=== PATIENT | female | born 1945 | race Caucasian/White ===

== ENCOUNTER 2021-10-10 15:33 | Inpatient (IN) ==
--- NOTE | 2021-10-10 16:47 | Emergency Department Note ---
History of Present Illness General Chief complaint: Abnormal Labs/Diagnostic Testing Stated complaint: REF BY , ABNORMAL LAB Time Seen by Provider: 10/10/21 15:40 Source: patient Mode of arrival: ambulatory Limitations: no limitations History of Present Illness This patient is a 76-year-old female who presents to the emergency department accompanied by her son for evaluation of abnormal laboratory findings. Patient reports that she has been very tired and sleeping all the time for the past several weeks. She has had decreased appetite. She states that she feels full and like something is stuck in her abdomen after eating. She denies any abdominal pain or vomiting. She saw her primary care provider today due to these issues and states that she was told she was jaundiced at that time. Her PCP ordered some outpatient testing including a CT scan and blood work. She states that right after having this done, she received a call stating she should go to the ER due to a high white blood cell count. Patient does report a remote history of breast cancer. Home Medications Medication Instructions Recorded Confirmed Type pravastatin 20 mg tablet 20 mg PO DAILY #90 tab 11/14/20 10/10/21 Rx lisinopril 10 mg tablet 10 mg PO DAILY #90 tab 03/20/21 10/10/21 Rx metformin 500 mg tablet 500 mg PO BID #180 tab 04/18/21 10/10/21 Rx metoprolol succinate 50 mg 50 mg PO DAILY #90 tab 06/21/21 10/10/21 Rx tablet,extended release 24 hr hydrochlorothiazide 12.5 mg tablet 12.5 mg PO DAILY #30 tab 07/13/21 10/10/21 Rx naproxen sodium 220 mg tablet 220 mg PO DIRECTED PRN 10/10/21 10/10/21 History Allergies Allergy/AdvReac Type Severity Reaction Status Date / Time No Known Allergies Allergy Verified 10/10/21 18:26 Past Med/Surg History Medical History Breast cancer Breast cancer Gastritis HTN (hypertension) Hyperlipidemia Stomach tumor (benign) Type 2 diabetes mellitus Surgical History Status post breast biopsy Family History Sister Diabetes Social History Smoking Status: Never smoker Second Hand Exposure: Yes (daughter); Hx Alcohol Use: No Hx Substance Use: No Preferred Language: Swiss Communication Ability: Effective Hearing Ability: Normal 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 Beliefs That Will Affect Care: None marital status: Current Living Situation: Family Current Living Situation Comment: son and daughter in law current occupational status: retired How many Children do You have: 6 Other Information That Helps Us Care for You: No Feels Safe at Home: Yes Safety Concerns: Feels Safe At This Time Childhood Exposure to Second-Hand Smoke: Yes caffeine: Yes (coffee) Dental Care, Regularly: No Physical Activity Frequency: Other Physical Activity Frequency Comment: walking throughout daily Seatbelt Use: always Sunscreen Use: Yes Assistive Devices: Denture - Upper and Glasses Review of Systems A total of 10 systems reviewed and were otherwise negative Physical Exam Vital Signs Vital Signs - 24 hr 10/10/21 15:38 Temperature 36.9 C Temperature Source Temporal Artery Scan Pulse Rate 76 Respiratory Rate 16 Blood Pressure 97/63 L Blood Pressure Mean 74 Pulse Oximetry 97 Oxygen Delivery Method Room Air Sepsis Recent Fever Within 48 Hours No Sepsis New/Unexplained Change in Mental Status N/A Sepsis Action Taken by Nursing No Action Required VITALS: Vitals are noted on the nurse's note and reviewed by myself. GENERAL: This is a 76-year-old female, in no acute distress, sitting in a wheelchair. SKIN: Jaundice noted. No rashes. EARS: External auditory canals clear, tympanic membranes pearly villar without erythema or effusion bilaterally. EYES: Scleral icterus noted. MOUTH: Mucous membranes moist. NECK: Supple without nuchal rigidity. No lymphadenopathy. HEART: Regular rate and rhythm without murmurs gallops or rubs. LUNGS: Clear to auscultation bilaterally without wheezes, rales or rhonchi. ABDOMEN: Positive bowel sounds x 4. Soft, nontender to palpation. NEURO: Patient was alert and oriented to person place and time. Course Administered Medications Heparin Sodium (Porcine) (Heparin Sod 5,000 Unit/0.5 Ml Vial) 5,000 units SQ Q12 ALEXEI Stop: 11/09/21 22:25 Last Admin: 10/10/21 23:41 Dose: 5,000 units Documented by: [id number] Pantoprazole Sodium 40 mg/ (Syringe) 10 mls @ 5 mls/min IV BID ALEXEI Stop: 11/09/21 22:25 Last Admin: 10/10/21 23:40 Dose: 5 mls/min Documented by: [id number] Discontinued Medications Ceftriaxone Sodium (Rocephin) 2,000 mg in 70 mls @ 140 mls/hr IV NOW STA Stop: 10/10/21 19:49 Last Infusion: 10/10/21 22:49 Dose: 0 mls/hr Documented by: [id number] Admin: 10/10/21 21:44 Dose: 140 mls/hr Documented by: [id number] Phytonadione 10 mg/ Dextrose 51 mls @ 102 mls/hr IV ONE ONE Stop: 10/10/21 19:56 Last Admin: 10/10/21 21:13 Dose: Not Given Documented by: [id number] Phytonadione 5 mg/ Dextrose 50.5 mls @ 102 mls/hr IV ONE ONE Stop: 10/10/21 20:14 Last Infusion: 10/10/21 21:47 Dose: 0 mls/hr Documented by: [id number] Admin: 10/10/21 21:14 Dose: 102 mls/hr Documented by: [id number] Medical Decision Making Differential Diagnosis Infection, dehydration, metabolic abnormality, hypo/hyperglycemia, electrolyte disturbance, anemia, hypoxia, cardiac sources, intracerebral event, toxicologic, neurologic, as well as other pathologies. Home Medications Current Medication List: was personally reviewed by me Laboratory Data Attestation: I reviewed the patient's lab results. Result diagrams: 10/10/21 17:26 Lab Results 10/10/21 10/10/21 10/10/21 Range/Units 16:51 17:26 17:27 PT 22.5 H (9.0-12.0) Seconds INR 2.2 H (0.9-1.1) Sodium 133 L (136-145) mmol/L Potassium 4.2 (3.5-5.1) mmol/L Chloride 96 L (98-107) mmol/L Carbon Dioxide 23 (21-32) mmol/L Anion Gap 14 H (3-11) BUN 22 (6-23) mg/dl Creatinine 1.32 H (0.6-1.2) mg/dl Est Cr Clr Drug Dosing Not Reportable Est GFR ( Amer) 44.7 ml/min Est GFR (Non-Af Amer) 38.5 ml/min BUN/Creatinine Ratio 16.7 (10-20) Glucose 125 H (70-99(Fasting)) mg/dl Calcium 9.3 (8.5-10.1) mg/dl Total Bilirubin 21.5 H (0.2-1.0) mg/dl Direct Bilirubin 13.6 H (0-0.2) mg/dl AST 248 H (13-39) U/L ALT 116 H (7-52) U/L Alkaline Phosphatase 571 H (34-104) U/L Total Protein 6.7 (6.0-8.3) gm/dl Albumin 3.1 L (3.4-5.0) gm/dl Lipase Cancelled Procalcitonin (0-0.5) ng/ml SARS-CoV-2, RNA, NAAT NEGATIVE (NEGATIVE) 10/10/21 Range/Units 17:27 PT (9.0-12.0) Seconds INR (0.9-1.1) Sodium (136-145) mmol/L Potassium (3.5-5.1) mmol/L Chloride (98-107) mmol/L Carbon Dioxide (21-32) mmol/L Anion Gap (3-11) BUN (6-23) mg/dl Creatinine (0.6-1.2) mg/dl Est Cr Clr Drug Dosing Est GFR ( Amer) ml/min Est GFR (Non-Af Amer) ml/min BUN/Creatinine Ratio (10-20) Glucose (70-99(Fasting)) mg/dl Calcium (8.5-10.1) mg/dl Total Bilirubin (0.2-1.0) mg/dl Direct Bilirubin (0-0.2) mg/dl AST (13-39) U/L ALT (7-52) U/L Alkaline Phosphatase (34-104) U/L Total Protein (6.0-8.3) gm/dl Albumin (3.4-5.0) gm/dl Lipase Procalcitonin 1.01 H (0-0.5) ng/ml SARS-CoV-2, RNA, NAAT (NEGATIVE) Imaging Data Attestation: I personally reviewed and interpreted this imaging study as follows: Radiologist's Impression: Chest X-Ray 10/10/21 16:33 XR chest 1V portable CLINICAL HISTORY: Leukocytosis. COMPARISON STUDY: No previous studies for comparison. FINDINGS: There is mild elevation of the right hemidiaphragm. Lungs are clear. There is no pneumothorax or pleural effusion. Cardiac size is normal. Mediastinal contours are normal. There is no evidence for pulmonary edema. Postoperative findings within the left breast are present. An oval shaped peripherally calcified density projecting over the left upper lung is benign. IMPRESSION: No acute cardiopulmonary findings. ACT 112: Negative or not required by law. Electronically signed by: Galen Arrieta M.D. 10/10/2021 5:43 PM ECG Data Attestation: I personally reviewed and interpreted this ECG as follows: Indication: + weakness Rate (beats per minute): 73 Rhythm: + normal sinus ECG Intervals/blocks: + Normal QRS ECG Findings: + Q waves (Inferior) Comparison ECG Date: no prior available MDM Narrative The patient is a 76-year-old female who presents today complaining of fatigue, decreased appetite and abnormal labs performed as an outpatient. Review of the patient's records show that she had a CT scan performed just prior to her arrival in the ER which showed multiple lesions of the liver suspicious for metastatic cancer. She is obviously jaundiced on arrival here. Labs reveal a total bilirubin of 21.5, direct bilirubin of 13.6 as well as transaminitis. Patient had a CBC done just prior to arrival which showed a white blood cell co unt of 17,000. She has no symptoms of infection. Chest x-ray was performed and shows no pneumonia. Patient unable to provide a urinalysis throughout her ER stay. Given patient's weakness, leukocytosis and new cancer diagnosis I do feel she would benefit from an inpatient hospitalization. Case was discussed with the [facility] hospitalist service, who agreed to evaluate the patient for further care. Impression & Plan Liver masses, Jaundice, Fatigue Discharge Plan Visit Data Chief Complaint: Abnormal Labs/Diagnostic Testing Stated Complaint: REF BY , ABNORMAL LAB ED Provider: Gutierrez Alvarado ED Midlevel Provider: Yenifer Amin Discharge Problem: Liver masses, Jaundice, Fatigue Patient Disposition: Admitted As Inpatient Discharge Instructions Interventions: ED Discharge Assessment Last Done: 10/10/21 23:15
--- NOTE | 2021-10-10 17:45 | XRay Report ---
XR chest 1V portable CLINICAL HISTORY: Leukocytosis. COMPARISON STUDY: No previous studies for comparison. FINDINGS: There is mild elevation of the right hemidiaphragm. Lungs are clear. There is no pneumothor ax or pleural effusion. Cardiac size is normal. Mediastinal contours are normal. There is no evidence for pulmonary edema. Postoperative findings within the left breast are present. An oval shaped perip herally calcified density projecting over the left upper lung is benign. IMPRESSION: No acute cardiopulmonary findings. ACT 112: Negative or not required by law. Electronically signed by: Galen Arrieta M.D. 10/10/2021 5:43 PM
[2021-10-10 18:20] LABS: Alanine Aminotransferase 116 U/L (7-52); Albumin Level 3.1 gm/dl (3.4-5.0); Alkaline Phosphatase 571 U/L (34-104); Anion Gap 14 (3-11); BUN Creatinine Ratio 16.7 (10-20); Bilirubin,Total 21.5 mg/dl (0.2-1.0); Blood Urea Nitrogen 22 mg/dl (6-23); Calcium 9.3 mg/dl (8.5-10.1); Carbon Dioxide 23 mmol/L (21-32); Chloride 96 mmol/L (98-107); Est GFR (African American) 44.7 ml/min; Est GFR (Non-African American) 38.5 ml/min; Glucose 125 mg/dl (70-99(Fasting)); Sodium 133 mmol/L (136-145); Total Protein 6.7 gm/dl (6.0-8.3)
[2021-10-10 18:22] LABS: Aspartate Aminotransferase 248 U/L (13-39); Potassium 4.2 mmol/L (3.5-5.1)
[2021-10-10 18:36] LABS: Bilirubin Direct 13.6 mg/dl (0-0.2)
--- NOTE | 2021-10-10 18:58 | History & Physical Report ---
Date of Service October 10, 2021 Assessment & Plan (1) Liver masses: Plan: New innumerable liver masses- likely cancer- primary vs. metastatic - discuss role of biopsy - may need transfer for imitation of workup/evaluation in the setting of new onset FEI - MRCP to evaluate for obstruction or invasion into biliary tree (2) PENITENTIARY (acute liver failure): Plan: Secondary to likely invasive masses favoring cancer - MRCP as above - INR elevated to 2.2- 5mg IV Vitamin K - Grade I encephalopathy -Tbili 21.5, dbili 13.6, AST 248, ALT 116, ALK po4 571 - Glucose remains normal - Mild hyponatremia - ALbumin 3.1 - Glucose checks AC/HS with hypoglycemic protocol (3) Type 2 diabetes mellitus: Plan: Hold Metformin - AC/HS checks in line with liver function evaluation - prevent hypoglycemia- will hold on insulin sliding scale unless consistently > 180 (4) Leukocytosis: Plan: WBC 17 afebrile - will initiate broad spectrum coverage with Rocephin 2GM IV now - Blood cultures drawn - PCT 1.01 - Lactate pending (5) Breast cancer: Plan: HX of with chemotherapy 2009 - She does not recall being on any other agents such as tamoxifen or other (6) Hyperlipidemia: Plan: Continue statin History of Present Illness Primary Care Provider: Moreno Ac, DO 76 YOF with medical history of: Breast Cancer (2010-Grade I infiltrating ductal carcinoma-treated with lumpectomy and 8 cycles of chemotherapy) PET scan 2011 negative for mets, HTN, DMII, Appendectomy, hysterectomy. Patient was referred to the EMD today from her PCP for concerns of Jaundice, abdominal. Over the past month or two the patient endorses increase in abdominal pain right mid abdomen. This progressed to her appearing Jaundiced to her PCP- she had labs drawn and CT scan of abdomen and pelvis performed. Unfortunately this CT scan revealed innumerable hypodense hepatic lesions. Patient reports that she has had increase in fatigue and just wanting to sleep over the past 2 weeks. She also endorses constipation. She is accompanied by her son. Her WBC count was e levated to 17. Patient states that Currently undergoing infectious workup with blood culture, lactate, procalcitonin. She is afebrile and denies any other illness. Patient will be admitted, empirically placed on Rocephin, will check INR/PT, Ammonia, hepatitis panel and AFP. Patient was informed of these findings and need to gather more information regarding her liver masses. She is amendable to further workup and screenings to include biopsy. Will obtain MRCP. She reports stopping drinking 2 years ago, and never smoked COVID test on admission is: NEGATIVE Allergies Allergy/AdvReac Type Severity Reaction Status Date / Time cinnamon AdvReac Mild Heartburn Verified 10/13/21 16:09 Home Medications Medication Instructions Recorded Confirmed Type metformin 500 mg tablet 500 mg PO BID #180 tab 04/18/21 10/13/21 Rx lactulose 20 gram/30 mL oral 20 g PO BID PRN #1200 ml 10/13/21 10/13/21 Rx solution pantoprazole 40 mg tablet,delayed 40 mg PO BID 14 Days #28 tab 10/13/21 Rx release (Protonix) metoprolol succinate 50 mg 50 mg PO QAM #30 tab 10/14/21 Rx tablet,extended release 24 hr Past Med/Surg History Medical History FEI (acute liver failure) Admitted 10/10/21 to 10/13/21 Breast cancer Dx'ed 2009 initially- s/p left lumpectomy and chemo and radiation Gastritis HTN (hypertension) Hyperlipidemia Liver masses Recently dx'ed- admitted to [facility] 10/10/21 to 10/13/21 Concerning for primary vs metastatic disease - patient would like active treatment- heme/onc recommending port placement Osteoarthritis Type 2 diabetes mellitus Surgical History History of appendectomy History of section History of colonoscopy History of hysterectomy total hysterectomy with BSO History of lumpectomy of left breast History of removal of Port-a-Cath "years ago"--removed from right side after chemo completed History of tooth extraction all teeth removed except 2 History of vascular access device hx of aport in right chest wall for chemo Status post breast biopsy left--malignant Family History Sister Diabetes Other No family history of adverse response to anesthesia Social History Smoking Status: Never smoker Second Hand Exposure: No; Hx Alcohol Use: No (quit at [employer] 2020-- prior to quitting drank about a 6 pack of beer/day) Hx Substance Use: No Preferred Language: Romanian Communication Ability: Effective Hearing Ability: Normal Veterinary Microbiologist Required: No Beliefs That Will Affect Care: None marital status: Current Living Situation: Family Current Living Situation Comment: lives with son current occupational status: retired How many Children do You have: 6 Feels Safe at Home: Yes Childhood Exposure to Second-Hand Smoke: Yes caffeine: Yes (coffee) Dental Care, Regularly: No Physical Activity Frequency: Other Physical Activity Frequency Comment: walking throughout daily Seatbelt Use: always Sunscreen Use: Yes Assistive Devices: Cane and Glasses Review of Systems Review of Systems: REVIEW OF SYSTEMS: Constitutional: (+) fatigue, No fever, sweats or chills Eyes: No diplopia, no worsening or blurred vision ENT: normal hearing, no trouble swallowing Respiratory: No cough, sputum, dyspnea at rest or on exertion Cardiovascular: No chest pain, tightness or palpitations Abdomen: (+) pain, nausea, constipation, NO vomiting, diarrhea Musculoskeletal: No joint pain, calf pain, swelling Neurologic: No weakness, numbness/tingling, or balance problems Psychiatric: No anxiety or depression Skin: (+) jaundice, No rash or itch Physical Exam Physical Exam: PHYSICAL EXAM: General: awake, alert, fatigued Head: Normocephalic, atraumatic ENT: jaundiced sclera, PERRL, EOMI, no pharyngeal exudate, mucous membranes moist Neuro: AAO x 3, speech clear and appropriate, strength intact bilaterally 5/5, sensation intact and equal all extremities and dermatomes, no pronator drift, no asterixis Chest: equal rise and fall of the chest, no accessory muscle use, no heaves or thrills, Clear to auscultation, on room air, Cardiac: Regular rate and rhythm, telemetry reviewed, skin warm dry, cap refill <3 seconds, peripheral pulses +2 no JVD, no murmur, no JVD, no edema GI: enlarged liver borders, pain along the liver border with palpation, NABS x 4 quadrants, soft, no rebound, guarding or tenderness : Spontaneously voiding, no pain, no CVA tenderness, Psych: Patient not very verbal but did start being involved more as we discussed her findings. Skin: Jaundice with bruising to blood sticks Results & Data Results & Data ([facility]) Vital Signs (Past 12 Hours) Vital Signs Temp Pulse Resp BP Pulse Ox 10/10/21 15:38 36.9 C 76 16 97/63 L 97 Laboratory Results Abnormal lab results 10/10/21 10/10/21 Range/Units 17:26 17:27 PT 22.5 H (9.0-12.0) Seconds INR 2.2 H (0.9-1.1) Sodium 133 L (136-145) mmol/L Chloride 96 L (98-107) mmol/L Anion Gap 14 H (3-11) Creatinine 1.32 H (0.6-1.2) mg/dl Glucose 125 H (70-99(Fasting)) mg/dl Total Bilirubin 21.5 H (0.2-1.0) mg/dl Direct Bilirubin 13.6 H (0-0.2) mg/dl AST 248 H (13-39) U/L ALT 116 H (7-52) U/L Alkaline Phosphatase 571 H (34-104) U/L Albumin 3.1 L (3.4-5.0) gm/dl Diagnostic Findings Chest X-Ray 10/10/21 16:33 XR chest 1V portable CLINICAL HISTORY: Leukocytosis. COMPARISON STUDY: No previous studies for comparison. FINDINGS: There is mild elevation of the right hemidiaphragm. Lungs are clear. There is no pneumothorax or pleural effusion. Cardiac size is normal. Mediastinal contours are normal. There is no evidence for pulmonary edema. Postoperative findings within the left breast are present. An oval shaped peripherally calcified density projecting over the left upper lung is benign. IMPRESSION: No acute cardiopulmonary findings. ACT 112: Negative or not required by law. Electronically signed by: Galen Arrieta M.D. 10/10/2021 5:43 PM Medications Administered Home Medications pravastatin 20 mg tablet 20 mg PO DAILY #90 tab 11/14/20 [Rx Confirmed 10/10/21] lisinopril 10 mg tablet 10 mg PO DAILY #90 tab 03/20/21 [Rx Confirmed 10/10/21] metformin 500 mg tablet 500 mg PO BID #180 tab 04/18/21 [Rx Confirmed 10/10/21] metoprolol succinate 50 mg tablet,extended release 24 hr 50 mg PO DAILY #90 tab 06/21/21 [Rx Confirmed 10/10/21] hydrochlorothiazide 12.5 mg tablet 12.5 mg PO DAILY #30 tab 07/13/21 [Rx Confirmed 10/10/21] naproxen sodium 220 mg tablet 220 mg PO DIRECTED PRN 10/10/21 [History Confirmed 10/10/21] ECG Additional Comments: Pending on admission Code Status & VTE Plan Code Status CODE: DNR/DNI VTE: SCDs, Heparin 5000 units subq q12 VTE Prophylaxis Plan VTE Prophylaxis will be ordered: Yes Supervising Physician Co-Signing Physician Notes Patient seen and examined at bedside. Obtained a physical examination and history during face to face encounter. I discussed plan of care with BAR Calvin I reviewed above note and agree with it. Patient admitted with what appears to be liver masses. LFT also appear to be elevated. will admit and order MRCP. PG Care Time/CCT Total # of Minutes Spent Total Time Spent with Patient: Total time spent is greater than 50% in coordination of care (as documented) at patient's floor/unit and/or counseling patient: Coding Level of Care Code 65664 Initial Inpt Care Lvl 3 Diagnoses FEI (acute liver failure) K72.00 Liver masses R16.0 Type 2 diabetes mellitus E11.9 Breast cancer C50.919 Hyperlipidemia E78.5 Leukocytosis D72.829
[2021-10-10 19:03] LABS: INR 2.2 (0.9-1.1); Prothrombin Time 22.5 Seconds (9.0-12.0)
[2021-10-10] MEDS ORDERED: cefTRIAXone SODIUM 2,000 MG/70 ML BAG IV STA (19:20)
[2021-10-10] MEDS ORDERED: PHYTONADIONE 10 MG in DEXTROSE 5% 50 ML IV ONE (19:27)
[2021-10-10] MEDS ORDERED: PHYTONADIONE 5 MG in DEXTROSE 5% 50 ML IV ONE (19:45)
[2021-10-10] MEDS ORDERED: POLYETHYLENE (MIRALAX) 17 GM PACK PO PRN (22:26)
[2021-10-10] MEDS ORDERED: DEXTROSE 50% 50 ML SYRINGE IV PRN (22:26)
[2021-10-10] MEDS ORDERED: GLUCAGON FOR INJ 1 MG VIAL SQ PRN (22:26)
[2021-10-10] MEDS ORDERED: GLUCOSE 40% GEL 15 GM TUBE PO PRN (22:26)
[2021-10-10] MEDS ORDERED: GLUCOSE 10 TABS/TUBE PO PRN (22:26)
[2021-10-10] MEDS ORDERED: CARBOHYDRATES FOR HYPOGLYCEMIA PO PRN (22:26)
[2021-10-10] MEDS ORDERED: ONDANSETRON INJ 2 MG/ML 2 ML VIAL IV PRN (22:26)
[2021-10-10] MEDS: PANTOprazole 40 MG in SYRINGE 0 ML IV SCH (23:40)
[2021-10-10] MEDS: HEPARIN SOD 5,000 UNIT/0.5 ML VIAL SQ SCH (23:41)
[2021-10-11 06:03] LABS: Appearance Urine Cloudy (Clear); Bacteria Urine Automated Negative (Negative); Blood Urine Negative (Negative); Color Urine Dark Yellow; Epithelial Cell Urine Auto >30 /lpf (0-5); Glucose Urine UA Negative (Negative); Ketones Urine Negative (Negative); Leukocyte Esterase Urine 1+ (Negative); Nitrite Urine Positive (Negative); Protein Urine Trace (Negative); Specific Gravity Urine 1.019 (1.000-1.030); Urobilinogen Urine Negative (Negative)
[2021-10-11 06:05] LABS: Bilirubin Urine 3+ (Negative)
[2021-10-11] MEDS: DOCUSATE SODIUM/SENNA 50/8.6MG TAB PO SCH (08:26)
[2021-10-11] MEDS: HEPARIN SOD 5,000 UNIT/0.5 ML VIAL SQ SCH (08:26)
[2021-10-11] MEDS: METOPROLOL SUCC 50MG EXT REL TAB PO SCH (08:26)
[2021-10-11] MEDS: PANTOprazole 40 MG in SYRINGE 0 ML IV SCH ×2 (08:27→20:41)
--- NOTE | 2021-10-11 08:47 | Magnetic Resonance Report ---
MRCP CLINICAL HISTORY: Elevated bilirubin. Jaundice. Liver metastases. COMPARISON STUDY: Abdominal CT dated 10/10/2021. TECHNIQUE: Abdominal MRCP is performed utilizing various T2-weighted sequences in the axial and coron al planes. IV contrast was not administered for this examination. 3-D reformats are created and asses sed. The examination is degraded by motion artifact as well as by the presence of abdominal ascites. FINDINGS: The gallbladder is completely contracted and not well evaluated. No obvious gallstones are identified . There is no intra or extrahepatic biliary ductal dilatation. The common bile duct is ectatic and me asures up to 5 mm in diameter. No intraluminal filling defects are clearly identified to suggest chol edocholithiasis. The pancreatic duct is normal in caliber. There is distortion of the intrahepatic bi le ducts, likely related to mass effect from hepatic metastases. The liver is enlarged, measuring 21 cm in length. The liver is infiltrated by numerous mass lesions t ypical for metastatic disease. There is upper abdominal lymphadenopathy. Upper abdominal ascites is n oted. The unenhanced spleen, pancreas, adrenal glands, and kidneys are grossly unremarkable but not w ell assessed. The abdominal aorta is normal in caliber. There are also mildly enlarged upper retroper itoneal lymph nodes. No destructive bony lesion is clearly identified. There is no pleural effusion. IMPRESSION: 1. The liver is enlarged and infiltrated by numerous metastatic lesions. 2. The gallbladder is completely contracted and not well evaluated. 3. There is no significant intra or extrahepatic biliary ductal dilatation. 4. There is significant distortion of the intra and extrahepatic bile ducts, likely related to mass e ffect from metastatic lesions. 5. There is upper abdominal and retroperitoneal lymphadenopathy as well as abdominal ascites. Dictated: 10/11/2021 7:18 AM Transcribed: 10/11/2021 7:44 AM Kristin [id number] [facility] Electronically signed by: Matthew Anthony M.D. 10/11/2021 8:46 AM
[2021-10-11] MEDS ORDERED: PRAVASTATIN SOD 20 MG TAB PO SCH (09:00)
[2021-10-11] MEDS ORDERED: lisinopril 10 MG TAB PO SCH (09:00)
[2021-10-11 09:07] LABS: Hematocrit (blood only) 40.4 % (37-47); Hemoglobin 13.7 g/dL (12.0-16.0); Mean Corpuscular Hemoglobin 30.6 pg (25-34); Mean Corpuscular Volume 90.2 fL (80-100); Red Blood Count 4.48 M/uL (4.2-5.4); White Blood Count 15.21 K/uL (4.8-10.8)
[2021-10-11 09:08] LABS: Basophils # (auto) 0.04 K/uL (0-0.2); Basophils % (auto) 0.3 %; Eosinophils # (auto) 0.09 K/uL (0-0.5); Eosinophils % (auto) 0.6 %; Immature Granulocytes # (auto) 0.24 K/uL (0.00-0.02); Immature Granulocytes % (auto) 1.6 %; Lymphocytes # (auto) 1.66 K/uL (1.2-3.4); Lymphocytes % (auto) 10.9 %; Mean Corpuscular Hgb Conc 33.9 g/dL (32-36); Mean Platelet Volume 10.1 fL (7.4-10.4); Monocytes # (auto) 1.67 K/uL (0.11-0.59); Neutrophils # (auto) 11.51 K/uL (1.4-6.5); Neutrophils % (auto) 75.6 %; Platelet Count 376 K/uL (130-400); RDW Coefficient of Variation 22.1 % (11.5-14.5); RDW Standard Deviation 72.6 fL (36.4-46.3)
--- NOTE | 2021-10-11 09:19 | Hospitalist Progress Note ---
Date of Service October 11, 2021 Assessment & Plan (1) Liver masses: Plan: Patient with history of breast ca s/p lumpectomy and chemotherapy x 8 cycles in 2009. Routine mammograms yearly up until last year noted Seen by PCP and sent for labs and instructed to go to ER for imaging/evaluation Given Vit K for INR>2, improved today MELD 29 CTAP on admission with liver infiltrated by numerous metastatic lesions concerning for primary vs metastatic disease (Of note, not nola disease on imaging, making met breast ca unlikely) MRCP without evidence for obstruction amenable to stenting AFP sent, will add CEA with AM labs given rectal thickening/esophageal thickening on imaging -- will need to inquire about previous endoscopy C-scope 10 years ago, never had EGD Given dose lactulose as patient reported not really moving bowels, unable to add level to labs Heparin placed on hold today for Liver biopsy as performed by radiology--> Monitor pathology Discussed with Dr Gregg about patient -- rec CT chest for evaluated met disease CT chest with few scattered low suspicion solid pulm nodules measuring up to 4mm, no definite evidence for met pulm disease -No thoracic lymphadenopathy -Partially imaged pathologic upper abdominal lymphadenopathy with mild distal esophageal wall thickening and small amount ascites Continue to monitor --Will consult Oncology for AM, palliative consult already in place however patient would like results first before deciding GI on consult -- will follow along, rec INR Q12 but no bleeding and holding heparin for biopsy but will monitor in AM (2) FCI (acute liver failure): Plan: Secondary to likely invasive masses favoring cancer - MRCP as above INR 2.2, given Vit K TB 21.5--> 19.4 DB 13.6 AST 248--> 256 ALT 116--> 110 ALP 571--> 478 Albumin 3.1-->2.7 Hepatitis panel pending TRG 260 , cholesterol and other studies sent out given elevation in liver testing AFP, CEA levels pending Monitor INR in AM, additional Vit K if needed Continue to monitor (3) Type 2 diabetes mellitus: Plan: Last a1c 7.7, holding metformin while inpatient BSG AC/HS, ISS while inpatient BSGs acceptable (4) Leukocytosis: Plan: WBC 17 afebrile on admission, but started empiric coverage with rocephin, ?UTI --> WBC decreased today. Remains afebrile Continue rocephin, monitor blood cultures Procal was 1.01 on admission Lactic unable to be drawn (5) Breast cancer: Plan: HX of with chemotherapy 2009 - She does not recall being on any other agents such as tamoxifen or other but did admit to regular yearly mammograms (6) Hyperlipidemia: Plan: placed statin on hold given elevated liver enzymes (7) HTN (hypertension): Plan: on HCTZ 12.5mg, lisinopril 10mg, metoprolol 50mg daily HCTZ likely contributing to hyponatremia as well --- on hold Also holding lisinopril given Cr 1.32 on admit -- improved to 1.14 BP low end of normal at 103/53 Monitor (8) Gastritis: Plan: reported, on protonix IV BID reports stable eating this morning (9) Fatigue: Plan: secondary to above monitor (10) Jaundice: Admission and Anticipated Discharge Date Admission Date: October 10, 2021 Supervising Physician Co-Signing Physician Notes PA Supervision Note: I did not personally see or examine the patient today, but I verified all delcid points of LUCAS Richmond's assessment and plan with the following exceptions/additions: None Subjective Patient evaluated this morning, close to lunch. She states she saw her PCP and got labs and they instructed her to come to the hospital. Ate toast/juice and some egg white this morning. No abdominal pain at this time but does note things feel like they are getting stuck. She notes she was not passing much gas in days past but is passing some gas today. No vomiting. Discussed MRCP findings and not able to provide stent but discussed her want to pursue treatment. She would like to have biopsy for more information. Discussed I spoke with oncology who is recommending CT chest as well. Agreeable to scan. Followed with Dr Tyson for her hematology/oncology care and reports has gotten routine mammograms up until last year as her oncologist . She notes not having taken tomixfen or anastrazole following her chemo either. No fever/chill, chest pain, shortness of breath, abdominal pain, nausea or vomiting, dysuria at this time. Will plan for biopsy today. Review of Systems Review of Systems: All systems reviewed & are unremarkable except as noted in HPI & below Physical Exam Physical Exam: General: WD elderly female resting quietly in bed upon entry, NAD, +JAUNDICE, reports fatigue HEENT: icteric sclera, pupils equal and reactive, trachea midline without deviation Resp: CTAB, diminished in bases, on room air, no wheezing/crackles CV: RRR, no m/r/g, no calf tenderness GI:+ BS (slightly hypoactive), +hepatomegaly, non-tender to palpation, no rebound/guarding : no smith Psych: alert, oriented to person/place/time, cooperative Neuro: moves all extremities, follow commands, no facial droop, CN intact grossly, no asterixis noted Results & Data Results & Data ([facility]) Vital Signs (Past 12 Hours) Vital Signs Temp Pulse Resp BP Pulse Ox 10/11/21 08:01 37.0 C 79 16 120/66 90 10/10/21 23:30 36.5 C 78 18 134/71 96 Laboratory Results 10/11/21 10/11/21 10/11/21 Range/Units 16:34 12:16 12:12 WBC (4.8-10.8) K/uL RBC (4.2-5.4) M/uL Hgb (12.0-16.0) g/dL Hct (37-47) % MCV (80-100) fL MCH (25-34) pg MCHC (32-36) g/dL RDW Std Deviation (36.4-46.3) fL RDW Coeff of Frida (11.5-14.5) % Plt Count (130-400) K/uL MPV (7.4-10.4) fL Immature Gran % (Auto) % Neut % (Auto) % Lymph % (Auto) % Grand % (Auto) % Eos % (Auto) % Baso % (Auto) % Neut # (Auto) (1.4-6.5) K/uL Lymph # (Auto) (1.2-3.4) K/uL Grand # (Auto) (0.11-0.59) K/uL Eos # (Auto) (0-0.5) K/uL Baso # (Auto) (0-0.2) K/uL Immature Gran # (Auto) (0.00-0.02) K/uL RBC Morphology PT (9.0-12.0) Seconds INR (0.9-1.1) Sodium (136-145) mmol/L Potassium (3.5-5.1) mmol/L Chloride (98-107) mmol/L Carbon Dioxide (21-32) mmol/L Anion Gap (3-11) BUN (6-23) mg/dl Creatinine (0.6-1.2) mg/dl Est Cr Clr Drug Dosing Est GFR ( Amer) ml/min Est GFR (Non-Af Amer) ml/min BUN/Creatinine Ratio (10-20) Glucose (70-99(Fasting)) mg/dl POC Glucose 129 H 132 H (70-99) mg/dl Lactate Calcium (8.5-10.1) mg/dl Magnesium (1.7-2.4) mg/dl Iron 139 (35-150) mcg/dl TIBC TNP Unsaturated IBC < 55 L (155-355) mcg/dl Transferrin % Sat TNP Ferritin (8-388) ng/ml Total Bilirubin (0.2-1.0) mg/dl Direct Bilirubin (0-0.2) mg/dl AST (13-39) U/L ALT (7-52) U/L Alkaline Phosphatase (34-104) U/L Ammonia Lactate Dehydrogenase (86-244) U/L Total Protein (6.0-8.3) gm/dl Albumin (3.4-5.0) gm/dl Globulin (2.5-4.0) gm/dl Albumin/Globulin Ratio (0.9-2) Triglycerides (0-150) mg/dl Cholesterol LDL Cholesterol, Calc VLDL Cholesterol, Calc (0-30) mg/dl HDL Cholesterol mg/dl Cholesterol/HDL Ratio Lipase Tumor Marker AFP Procalcitonin (0-0.5) ng/ml Urine Color Urine Appearance (Clear) Urine pH (4.5-7.5) Ur Specific [place] (1.000-1.030) Urine Protein (Negative) Urine Glucose (UA) (Negative) Urine Ketones (Negative) Urine Blood (Negative) Urine Nitrite (Negative) Urine Bilirubin (Negative) Urine Urobilinogen (Negative) Ur Leukocyte Esterase (Negative) Urine WBC (Auto) (0-5) /hpf Urine RBC (Auto) (0-4) /hpf U Hyaline Cast (Auto) (0-5) /lpf U Epithel Cells (Auto) (0-5) /lpf Urine Bacteria (Auto) (Negative) Granular Casts (0) /lpf Acetaminophen (10-30) ug/ml Hepatitis A IgM Ab Hep Bs Antigen Hep Bs Ag Confirmation Hep B Core IgM Ab Hepatitis C Ab (EIA) Hep C Ab Signal/Cutoff Miscellaneous Test Miscellaneous Test 2 10/11/21 10/11/21 10/11/21 Range/Units 08:10 08:10 08:10 WBC (4.8-10.8) K/uL RBC (4.2-5.4) M/uL Hgb (12.0-16.0) g/dL Hct (37-47) % MCV (80-100) fL MCH (25-34) pg MCHC (32-36) g/dL RDW Std Deviation (36.4-46.3) fL RDW Coeff of Frida (11.5-14.5) % Plt Count (130-400) K/uL MPV (7.4-10.4) fL Immature Gran % (Auto) % Neut % (Auto) % Lymph % (Auto) % Grand % (Auto) % Eos % (Auto) % Baso % (Auto) % Neut # (Auto) (1.4-6.5) K/uL Lymph # (Auto) (1.2-3.4) K/uL Grand # (Auto) (0.11-0.59) K/uL Eos # (Auto) (0-0.5) K/uL Baso # (Auto) (0-0.2) K/uL Immature Gran # (Auto) (0.00-0.02) K/uL RBC Morphology PT 14.3 H (9.0-12.0) Seconds INR 1.4 H (0.9-1.1) Sodium 134 L (136-145) mmol/L Potassium 3.8 (3.5-5.1) mmol/L Chloride 100 (98-107) mmol/L Carbon Dioxide 24 (21-32) mmol/L Anion Gap 10 (3-11) BUN 22 (6-23) mg/dl Creatinine 1.14 (0.6-1.2) mg/dl Est Cr Clr Drug Dosing 41.8 Est GFR ( Amer) 53.3 ml/min Est GFR (Non-Af Amer) 46.0 ml/min BUN/Creatinine Ratio 19.3 (10-20) Glucose 94 (70-99(Fasting)) mg/dl POC Glucose (70-99) mg/dl Lactate Calcium 8.5 (8.5-10.1) mg/dl Magnesium 2.3 (1.7-2.4) mg/dl Iron (35-150) mcg/dl TIBC Unsaturated IBC (155-355) mcg/dl Transferrin % Sat Ferritin (8-388) ng/ml Total Bilirubin 19.4 H (0.2-1.0) mg/dl Direct Bilirubin (0-0.2) mg/dl AST 256 H (13-39) U/L ALT 110 H (7-52) U/L Alkaline Phosphatase 478 H (34-104) U/L Ammonia Lactate Dehydrogenase (86-244) U/L Total Protein 5.7 L (6.0-8.3) gm/dl Albumin 2.7 L (3.4-5.0) gm/dl Globulin 3.0 (2.5-4.0) gm/dl Albumin/Globulin Ratio 0.9 (0.9-2) Triglycerides 260 H (0-150) mg/dl Cholesterol TNP LDL Cholesterol, Calc TNP VLDL Cholesterol, Calc 52 H (0-30) mg/dl HDL Cholesterol 9 mg/dl Cholesterol/HDL Ratio TNP Lipase Tumor Marker AFP Procalcitonin (0-0.5) ng/ml Urine Color Urine Appearance (Clear) Urine pH (4.5-7.5) Ur Specific [place] (1.000-1.030) Urine Protein (Negative) Urine Glucose (UA) (Negative) Urine Ketones (Negative) Urine Blood (Negative) Urine Nitrite (Negative) Urine Bilirubin (Negative) Urine Urobilinogen (Negative) Ur Leukocyte Esterase (Negative) Urine WBC (Auto) (0-5) /hpf Urine RBC (Auto) (0-4) /hpf U Hyaline Cast (Auto) (0-5) /lpf U Epithel Cells (Auto) (0-5) /lpf Urine Bacteria (Auto) (Negative) Granular Casts (0) /lpf Acetaminophen (10-30) ug/ml Hepatitis A IgM Ab Hep Bs Antigen Hep Bs Ag Confirmation Hep B Core IgM Ab Hepatitis C Ab (EIA) Hep C Ab Signal/Cutoff Miscellaneous Test Pending Miscellaneous Test 2 10/11/21 10/11/21 10/11/21 Range/Units 08:10 08:02 03:07 WBC 15.21 H (4.8-10.8) K/uL RBC 4.48 (4.2-5.4) M/uL Hgb 13.7 (12.0-16.0) g/dL Hct 40.4 (37-47) % MCV 90.2 (80-100) fL MCH 30.6 (25-34) pg MCHC 33.9 (32-36) g/dL RDW Std Deviation 72.6 H (36.4-46.3) fL RDW Coeff of Frida 22.1 H (11.5-14.5) % Plt Count 376 (130-400) K/uL MPV 10.1 (7.4-10.4) fL Immature Gran % (Auto) 1.6 % Neut % (Auto) 75.6 % Lymph % (Auto) 10.9 % Grand % (Auto) 11.0 % Eos % (Auto) 0.6 % Baso % (Auto) 0.3 % Neut # (Auto) 11.51 H (1.4-6.5) K/uL Lymph # (Auto) 1.66 (1.2-3.4) K/uL Grand # (Auto) 1.67 H (0.11-0.59) K/uL Eos # (Auto) 0.09 (0-0.5) K/uL Baso # (Auto) 0.04 (0-0.2) K/uL Immature Gran # (Auto) 0.24 H (0.00-0.02) K/uL RBC Morphology Unremarkable PT (9.0-12.0) Seconds INR (0.9-1.1) Sodium (136-145) mmol/L Potassium (3.5-5.1) mmol/L Chloride (98-107) mmol/L Carbon Dioxide (21-32) mmol/L Anion Gap (3-11) BUN (6-23) mg/dl Creatinine (0.6-1.2) mg/dl Est Cr Clr Drug Dosing Est GFR ( Amer) ml/min Est GFR (Non-Af Amer) ml/min BUN/Creatinine Ratio (10-20) Glucose (70-99(Fasting)) mg/dl POC Glucose 96 (70-99) mg/dl Lactate Calcium (8.5-10.1) mg/dl Magnesium (1.7-2.4) mg/dl Iron (35-150) mcg/dl TIBC Unsaturated IBC (155-355) mcg/dl Transferrin % Sat Ferritin (8-388) ng/ml Total Bilirubin (0.2-1.0) mg/dl Direct Bilirubin (0-0.2) mg/dl AST (13-39) U/L ALT (7-52) U/L Alkaline Phosphatase (34-104) U/L Ammonia Lactate Dehydrogenase (86-244) U/L Total Protein (6.0-8.3) gm/dl Albumin (3.4-5.0) gm/dl Globulin (2.5-4.0) gm/dl Albumin/Globulin Ratio (0.9-2) Triglycerides (0-150) mg/dl Cholesterol LDL Cholesterol, Calc VLDL Cholesterol, Calc (0-30) mg/dl HDL Cholesterol mg/dl Cholesterol/HDL Ratio Lipase Tumor Marker AFP Procalcitonin (0-0.5) ng/ml Urine Color Dark Yellow Urine Appearance Cloudy A (Clear) Urine pH 5.0 (4.5-7.5) Ur Specific [place] 1.019 (1.000-1.030) Urine Protein Trace H (Negative) Urine Glucose (UA) Negative (Negative) Urine Ketones Negative (Negative) Urine Blood Negative (Negative) Urine Nitrite Positive A (Negative) Urine Bilirubin 3+ H (Negative) Urine Urobilinogen Negative (Negative) Ur Leukocyte Esterase 1+ H (Negative) Urine WBC (Auto) 10-30 H (0-5) /hpf Urine RBC (Auto) 10-30 H (0-4) /hpf U Hyaline Cast (Auto) 5-10 H (0-5) /lpf U Epithel Cells (Auto) >30 H (0-5) /lpf Urine Bacteria (Auto) Negative (Negative) Granular Casts 1-5 H (0) /lpf Acetaminophen (10-30) ug/ml Hepatitis A IgM Ab Hep Bs Antigen Hep Bs Ag Confirmation Hep B Core IgM Ab Hepatitis C Ab (EIA) Hep C Ab Signal/Cutoff Miscellaneous Test Miscellaneous Test 2 10/10/21 10/10/21 10/10/21 Range/Units 23:38 21:18 21:18 WBC (4.8-10.8) K/uL RBC (4.2-5.4) M/uL Hgb (12.0-16.0) g/dL Hct (37-47) % MCV (80-100) fL MCH (25-34) pg MCHC (32-36) g/dL RDW Std Deviation (36.4-46.3) fL RDW Coeff of Frida (11.5-14.5) % Plt Count (130-400) K/uL MPV (7.4-10.4) fL Immature Gran % (Auto) % Neut % (Auto) % Lymph % (Auto) % Grand % (Auto) % Eos % (Auto) % Baso % (Auto) % Neut # (Auto) (1.4-6.5) K/uL Lymph # (Auto) (1.2-3.4) K/uL Grand # (Auto) (0.11-0.59) K/uL Eos # (Auto) (0-0.5) K/uL Baso # (Auto) (0-0.2) K/uL Immature Gran # (Auto) (0.00-0.02) K/uL RBC Morphology PT (9.0-12.0) Seconds INR (0.9-1.1) Sodium (136-145) mmol/L Potassium (3.5-5.1) mmol/L Chloride (98-107) mmol/L Carbon Dioxide (21-32) mmol/L Anion Gap (3-11) BUN (6-23) mg/dl Creatinine (0.6-1.2) mg/dl Est Cr Clr Drug Dosing Est GFR ( Amer) ml/min Est GFR (Non-Af Amer) ml/min BUN/Creatinine Ratio (10-20) Glucose (70-99(Fasting)) mg/dl POC Glucose 134 H (70-99) mg/dl Lactate Calcium (8.5-10.1) mg/dl Magnesium (1.7-2.4) mg/dl Iron (35-150) mcg/dl TIBC Unsaturated IBC (155-355) mcg/dl Transferrin % Sat Ferritin (8-388) ng/ml Total Bilirubin (0.2-1.0) mg/dl Direct Bilirubin (0-0.2) mg/dl AST (13-39) U/L ALT (7-52) U/L Alkaline Phosphatase (34-104) U/L Ammonia Lactate Dehydrogenase (86-244) U/L Total Protein (6.0-8.3) gm/dl Albumin (3.4-5.0) gm/dl Globulin (2.5-4.0) gm/dl Albumin/Globulin Ratio (0.9-2) Triglycerides (0-150) mg/dl Cholesterol LDL Cholesterol, Calc VLDL Cholesterol, Calc (0-30) mg/dl HDL Cholesterol mg/dl Cholesterol/HDL Ratio Lipase Tumor Marker AFP Procalcitonin (0-0.5) ng/ml Urine Color Urine Appearance (Clear) Urine pH (4.5-7.5) Ur Specific [place] (1.000-1.030) Urine Protein (Negative) Urine Glucose (UA) (Negative) Urine Ketones (Negative) Urine Blood (Negative) Urine Nitrite (Negative) Urine Bilirubin (Negative) Urine Urobilinogen (Negative) Ur Leukocyte Esterase (Negative) Urine WBC (Auto) (0-5) /hpf Urine RBC (Auto) (0-4) /hpf U Hyaline Cast (Auto) (0-5) /lpf U Epithel Cells (Auto) (0-5) /lpf Urine Bacteria (Auto) (Negative) Granular Casts (0) /lpf Acetaminophen < 3 L (10-30) ug/ml Hepatitis A IgM Ab Hep Bs Antigen Hep Bs Ag Confirmation Hep B Core IgM Ab Hepatitis C Ab (EIA) Hep C Ab Signal/Cutoff Miscellaneous Test Pending Miscellaneous Test 2 Pending 10/10/21 10/10/21 10/10/21 Range/Units 21:18 21:18 19:10 WBC (4.8-10.8) K/uL RBC (4.2-5.4) M/uL Hgb (12.0-16.0) g/dL Hct (37-47) % MCV (80-100) fL MCH (25-34) pg MCHC (32-36) g/dL RDW Std Deviation (36.4-46.3) fL RDW Coeff of Frida (11.5-14.5) % Plt Count (130-400) K/uL MPV (7.4-10.4) fL Immature Gran % (Auto) % Neut % (Auto) % Lymph % (Auto) % Grand % (Auto) % Eos % (Auto) % Baso % (Auto) % Neut # (Auto) (1.4-6.5) K/uL Lymph # (Auto) (1.2-3.4) K/uL Grand # (Auto) (0.11-0.59) K/uL Eos # (Auto) (0-0.5) K/uL Baso # (Auto) (0-0.2) K/uL Immature Gran # (Auto) (0.00-0.02) K/uL RBC Morphology PT (9.0-12.0) Seconds INR (0.9-1.1) Sodium (136-145) mmol/L Potassium (3.5-5.1) mmol/L Chloride (98-107) mmol/L Carbon Dioxide (21-32) mmol/L Anion Gap (3-11) BUN (6-23) mg/dl Creatinine (0.6-1.2) mg/dl Est Cr Clr Drug Dosing Est GFR ( Amer) ml/min Est GFR (Non-Af Amer) ml/min BUN/Creatinine Ratio (10-20) Glucose (70-99(Fasting)) mg/dl POC Glucose (70-99) mg/dl Lactate Calcium (8.5-10.1) mg/dl Magnesium (1.7-2.4) mg/dl Iron (35-150) mcg/dl TIBC Unsaturated IBC (155-355) mcg/dl Transferrin % Sat Ferritin Cancelled > 7500.0 H (8-388) ng/ml Total Bilirubin (0.2-1.0) mg/dl Direct Bilirubin (0-0.2) mg/dl AST (13-39) U/L ALT (7-52) U/L Alkaline Phosphatase (34-104) U/L Ammonia Lactate Dehydrogenase 2052 H (86-244) U/L Total Protein (6.0-8.3) gm/dl Albumin (3.4-5.0) gm/dl Globulin (2.5-4.0) gm/dl Albumin/Globulin Ratio (0.9-2) Triglycerides (0-150) mg/dl Cholesterol LDL Cholesterol, Calc VLDL Cholesterol, Calc (0-30) mg/dl HDL Cholesterol mg/dl Cholesterol/HDL Ratio Lipase Tumor Marker AFP Procalcitonin (0-0.5) ng/ml Urine Color Urine Appearance (Clear) Urine pH (4.5-7.5) Ur Specific [place] (1.000-1.030) Urine Protein (Negative) Urine Glucose (UA) (Negative) Urine Ketones (Negative) Urine Blood (Negative) Urine Nitrite (Negative) Urine Bilirubin (Negative) Urine Urobilinogen (Negative) Ur Leukocyte Esterase (Negative) Urine WBC (Auto) (0-5) /hpf Urine RBC (Auto) (0-4) /hpf U Hyaline Cast (Auto) (0-5) /lpf U Epithel Cells (Auto) (0-5) /lpf Urine Bacteria (Auto) (Negative) Granular Casts (0) /lpf Acetaminophen (10-30) ug/ml Hepatitis A IgM Ab Hep Bs Antigen Hep Bs Ag Confirmation Hep B Core IgM Ab Hepatitis C Ab (EIA) Hep C Ab Signal/Cutoff Miscellaneous Test Miscellaneous Test 2 10/10/21 10/10/21 10/10/21 Range/Units 19:10 19:07 19:07 WBC (4.8-10.8) K/uL RBC (4.2-5.4) M/uL Hgb (12.0-16.0) g/dL Hct (37-47) % MCV (80-100) fL MCH (25-34) pg MCHC (32-36) g/dL RDW Std Deviation (36.4-46.3) fL RDW Coeff of Frida (11.5-14.5) % Plt Count (130-400) K/uL MPV (7.4-10.4) fL Immature Gran % (Auto) % Neut % (Auto) % Lymph % (Auto) % Grand % (Auto) % Eos % (Auto) % Baso % (Auto) % Neut # (Auto) (1.4-6.5) K/uL Lymph # (Auto) (1.2-3.4) K/uL Grand # (Auto) (0.11-0.59) K/uL Eos # (Auto) (0-0.5) K/uL Baso # (Auto) (0-0.2) K/uL Immature Gran # (Auto) (0.00-0.02) K/uL RBC Morphology PT (9.0-12.0) Seconds INR (0.9-1.1) Sodium (136-145) mmol/L Potassium (3.5-5.1) mmol/L Chloride (98-107) mmol/L Carbon Dioxide (21-32) mmol/L Anion Gap (3-11) BUN (6-23) mg/dl Creatinine (0.6-1.2) mg/dl Est Cr Clr Drug Dosing Est GFR ( Amer) ml/min Est GFR (Non-Af Amer) ml/min BUN/Creatinine Ratio (10-20) Glucose (70-99(Fasting)) mg/dl POC Glucose (70-99) mg/dl Lactate Cancelled Calcium (8.5-10.1) mg/dl Magnesium (1.7-2.4) mg/dl Iron (35-150) mcg/dl TIBC Unsaturated IBC (155-355) mcg/dl Transferrin % Sat Ferritin (8-388) ng/ml Total Bilirubin (0.2-1.0) mg/dl Direct Bilirubin (0-0.2) mg/dl AST (13-39) U/L ALT (7-52) U/L Alkaline Phosphatase (34-104) U/L Ammonia Cancelled Lactate Dehydrogenase (86-244) U/L Total Protein (6.0-8.3) gm/dl Albumin (3.4-5.0) gm/dl Globulin (2.5-4.0) gm/dl Albumin/Globulin Ratio (0.9-2) Triglycerides (0-150) mg/dl Cholesterol LDL Cholesterol, Calc VLDL Cholesterol, Calc (0-30) mg/dl HDL Cholesterol mg/dl Cholesterol/HDL Ratio Lipase Tumor Marker AFP Pending Procalcitonin (0-0.5) ng/ml Urine Color Urine Appearance (Clear) Urine pH (4.5-7.5) Ur Specific [place] (1.000-1.030) Urine Protein (Negative) Urine Glucose (UA) (Negative) Urine Ketones (Negative) Urine Blood (Negative) Urine Nitrite (Negative) Urine Bilirubin (Negative) Urine Urobilinogen (Negative) Ur Leukocyte Esterase (Negative) Urine WBC (Auto) (0-5) /hpf Urine RBC (Auto) (0-4) /hpf U Hyaline Cast (Auto) (0-5) /lpf U Epithel Cells (Auto) (0-5) /lpf Urine Bacteria (Auto) (Negative) Granular Casts (0) /lpf Acetaminophen (10-30) ug/ml Hepatitis A IgM Ab Pending Hep Bs Antigen Pending Hep Bs Ag Confirmation Pending Hep B Core IgM Ab Pending Hepatitis C Ab (EIA) Pending Hep C Ab Signal/Cutoff Pending Miscellaneous Test Miscellaneous Test 2 10/10/21 10/10/21 10/10/21 Range/Units 17:27 17:27 17:26 WBC (4.8-10.8) K/uL RBC (4.2-5.4) M/uL Hgb (12.0-16.0) g/dL Hct (37-47) % MCV (80-100) fL MCH (25-34) pg MCHC (32-36) g/dL RDW Std Deviation (36.4-46.3) fL RDW Coeff of Frida (11.5-14.5) % Plt Count (130-400) K/uL MPV (7.4-10.4) fL Immature Gran % (Auto) % Neut % (Auto) % Lymph % (Auto) % Grand % (Auto) % Eos % (Auto) % Baso % (Auto) % Neut # (Auto) (1.4-6.5) K/uL Lymph # (Auto) (1.2-3.4) K/uL Grand # (Auto) (0.11-0.59) K/uL Eos # (Auto) (0-0.5) K/uL Baso # (Auto) (0-0.2) K/uL Immature Gran # (Auto) (0.00-0.02) K/uL RBC Morphology PT 22.5 H (9.0-12.0) Seconds INR 2.2 H (0.9-1.1) Sodium 133 L (136-145) mmol/L Potassium 4.2 (3.5-5.1) mmol/L Chloride 96 L (98-107) mmol/L Carbon Dioxide 23 (21-32) mmol/L Anion Gap 14 H (3-11) BUN 22 (6-23) mg/dl Creatinine 1.32 H (0.6-1.2) mg/dl Est Cr Clr Drug Dosing Not Reportable Est GFR ( Amer) 44.7 ml/min Est GFR (Non-Af Amer) 38.5 ml/min BUN/Creatinine Ratio 16.7 (10-20) Glucose 125 H (70-99(Fasting)) mg/dl POC Glucose (70-99) mg/dl Lactate Calcium 9.3 (8.5-10.1) mg/dl Magnesium (1.7-2.4) mg/dl Iron (35-150) mcg/dl TIBC Unsaturated IBC (155-355) mcg/dl Transferrin % Sat Ferritin (8-388) ng/ml Total Bilirubin 21.5 H (0.2-1.0) mg/dl Direct Bilirubin 13.6 H (0-0.2) mg/dl AST 248 H (13-39) U/L ALT 116 H (7-52) U/L Alkaline Phosphatase 571 H (34-104) U/L Ammonia Lactate Dehydrogenase (86-244) U/L Total Protein 6.7 (6.0-8.3) gm/dl Albumin 3.1 L (3.4-5.0) gm/dl Globulin (2.5-4.0) gm/dl Albumin/Globulin Ratio (0.9-2) Triglycerides (0-150) mg/dl Cholesterol LDL Cholesterol, Calc VLDL Cholesterol, Calc (0-30) mg/dl HDL Cholesterol mg/dl Cholesterol/HDL Ratio Lipase Cancelled Tumor Marker AFP Procalcitonin 1.01 H (0-0.5) ng/ml Urine Color Urine Appearance (Clear) Urine pH (4.5-7.5) Ur Specific [place] (1.000-1.030) Urine Protein (Negative) Urine Glucose (UA) (Negative) Urine Ketones (Negative) Urine Blood (Negative) Urine Nitrite (Negative) Urine Bilirubin (Negative) Urine Urobilinogen (Negative) Ur Leukocyte Esterase (Negative) Urine WBC (Auto) (0-5) /hpf Urine RBC (Auto) (0-4) /hpf U Hyaline Cast (Auto) (0-5) /lpf U Epithel Cells (Auto) (0-5) /lpf Urine Bacteria (Auto) (Negative) Granular Casts (0) /lpf Acetaminophen (10-30) ug/ml Hepatitis A IgM Ab Hep Bs Antigen Hep Bs Ag Confirmation Hep B Core IgM Ab Hepatitis C Ab (EIA) Hep C Ab Signal/Cutoff Miscellaneous Test Miscellaneous Test 2 Diagnostic Findings Chest X-Ray 10/10/21 16:33 XR chest 1V portable CLINICAL HISTORY: Leukocytosis. COMPARISON STUDY: No previous studies for comparison. FINDINGS: There is mild elevation of the right hemidiaphragm. Lungs are clear. There is no pneumothorax or pleural effusion. Cardiac size is normal. Media stinal contours are normal. There is no evidence for pulmonary edema. Postoperative findings within the left breast are present. An oval shaped peripherally calcified density projecting over the left upper lung is benign. IMPRESSION: No acute cardiopulmonary findings. ACT 112: Negative or not required by law. Electronically signed by: Galen Arrieta M.D. 10/10/2021 5:43 PM Cholangiopancreatography MRI 10/10/21 19:47 MRCP CLINICAL HISTORY: Elevated bilirubin. Jaundice. Liver metastases. COMPARISON STUDY: Abdominal CT dated 10/10/2021. TECHNIQUE: Abdominal MRCP is performed utilizing various T2-weighted sequences in the axial and coronal planes. IV contrast was not administered for this examination. 3-D reformats are created and assessed. The examination is degraded by motion artifact as well as by the presence of abdominal ascites. FINDINGS: The gallbladder is completely contracted and not well evaluated. No obvious gallstones are identified. There is no intra or extrahepatic biliary ductal dilatation. The common bile duct is ectatic and measures up to 5 mm in diameter. No intraluminal filling defects are clearly identified to suggest choledocholithiasis. The pancreatic duct is normal in caliber. There is distortion of the intrahepatic bile ducts, likely related to mass effect from hepatic metastases. The liver is enlarged, measuring 21 cm in length. The liver is infiltrated by numerous mass lesions typical for metastatic disease. There is upper abdominal lymphadenopathy. Upper abdominal ascites is noted. The unenhanced spleen, pancreas, adrenal glands, and kidneys are grossly unremarkable but not well assessed. The abdominal aorta is normal in caliber. There are also mildly enlarged upper retroperitoneal lymph nodes. No destructive bony lesion is clearly identified. There is no pleural effusion. IMPRESSION: 1. The liver is enlarged and infiltrated by numerous metastatic lesions. 2. The gallbladder is completely contracted and not well evaluated. 3. There is no significant intra or extrahepatic biliary ductal dilatation. 4. There is significant distortion of the intra and extrahepatic bile ducts, likely related to mass effect from metastatic lesions. 5. There is upper abdominal and retroperitoneal lymphadenopathy as well as abdominal ascites. Dictated: 10/11/2021 7:18 AM Transcribed: 10/11/2021 7:44 AM Kristin [id number] [email or web address] Electronically signed by: Matthew Anthony M.D. 10/11/2021 8:[address] 10/11/21 11:[address] WITH CONTRAST CT DOSE: 281.02 mGycm HISTORY: Acute shortness of breath. Hepatic metastatic disease. liver mets, eval for met disease TECHNIQUE: Multiaxial CT images of the chest were performed following the IV adm inistration of 94 cc of Optiray. A dose lowering technique was utilized adhering to the principles of ALARA. COMPARISON: CT abdomen and pelvis 10/10/2021. FINDINGS: Subcentimeter hypodense right-sided thyroid nodule. 7 mm right tracheoesophageal recess lymph node. No pathologically enlarged lymph nodes of the chest identified. Surgical clips are noted within the left axilla. Biopsy clip is in the superior aspect of the left central breast. The heart is upper limits of normal in size. Mild coronary artery calcifications. Atherosclerosis of the aorta without aneurysm. The opacified pulmonary artery is unremarkable. There is no pneumothorax, pleural effusion or overt pulmonary edema. Consolidation of the right middle lobe with traction bronchiectasis appears chronic. Mild subpleural reticulation of the anterior left upper lobe and lingula suggest scarring. 3 mm nodule of the left upper lobe on image 66. There are a few scattered additional low suspicion solid nodules measuring up to 4 mm within the right upper lobe on image 73. The central airways appear patent. Mild linear scarring/atelectasis of the right upper lobe. There is noted within the subcutaneous tissues of the anterior abdominal wall. Trace actually luminal air is also noted within the peritoneal space of the upper abdomen on image 227 of series 4 which is likely postprocedural. Minimal air within the liver is again noted with innumerable hepatic metastasis. Small volume ascites with nonspecific distal esophageal wall thickening. Upper abdominal lymphadenopathy is partially imaged. No acute fracture or definite osseous metastatic disease. Degenerative changes of the shoulders and spine. IMPRESSION: 1. There are a few scattered low suspicion solid pulmonary nodules measuring up to 4 mm. No definite evidence of pulmonary metastatic disease. 2. No thoracic lymphadenopathy. 3. Innumerable hepatic metastasis redemonstrated with possible portal venous gas. 4. Partially imaged pathologic upper abdominal lymphadenopathy. 5. Abdominal ascites. 6. Mild distal esophageal wall thickening. ACT 112: Negative or not required by law. Electronically signed by: Eric Khanna M.D. 10/11/2021 2:36 PM Liver Biopsy Ultrasound 10/11/21 11:56 ULTRASOUND-GUIDED CORE BIOPSY AND FINE NEEDLE ASPIRATION OF LEFT HEPATIC LOBE CLINICAL HISTORY: numerous liver lesions, concerns for metastatic vs primary COMPARISON STUDY: CT of the abdomen and pelvis and MRCP October 10, 2021. PROCEDURE: The procedure, risks and benefits were discussed with the patient and informed written consent was obtained. The procedure was performed by Dr. Arrieta following a timeout. Sonography of the liver demonstrated heterogeneous appearance of the liver with nodularity of the liver surface. The lesions shown on prior CT and MRI were not well visualized by sonography however random biopsy within the left hepatic lobe was performed given extensive infiltrative appearance on those exams. Skin was prepped and draped in sterile fashion and local anesthesia was achieved with 1% lidocaine. Under direct ultrasound guidance, 2 22-gauge fine needle aspirations were performed utilizing Jose needles. Malignant cells were noted. Therefore, 18-gauge 2 cm core biopsy within the left hepatic lobe was performed. Samples were deemed preliminarily adequate by pathology. The patient tolerated the procedure well and no immediate complications were evident. IMPRESSION: Successful ultrasound guided 18-gauge core biopsy and fine-needle aspiration of the left hepatic lobe. Discrete lesions on prior CT an MRI were not well visualized by sonography however random biopsy within the left hepatic lobe was performed given extensive infiltrative appearance on those studies. ACT 112: Negative or not required by law. Electronically signed by: Galen Arrieta M.D. 10/11/2021 2:09 PM Aspiration 10/11/21 13:56 ULTRASOUND-GUIDED CORE BIOPSY AND FINE NEEDLE ASPIRATION OF LEFT HEPATIC LOBE CLINICAL HISTORY: numerous liver lesions, concerns for metastatic vs primary COMPARISON STUDY: CT of the abdomen and pelvis and MRCP October 10, 2021. PROCEDURE: The procedure, risks and benefits were discussed with the patient and informed written consent was obtained. The procedure was performed by Dr. Arrieta following a timeout. Sonography of the liver demonstrated heterogeneous appearance of the liver with nodularity of the liver surface. The lesions shown on prior CT and MRI were not well visualized by sonography however random biopsy within the left hepatic lobe was performed given extensive infiltrative appearance on those exams. Skin was prepped and draped in sterile fashion and local anesthesia was achieved with 1% lidocaine. Under direct ultrasound guidance, 2 22-gauge fine needle aspirations were performed utilizing Jose needles. Malignant cells were noted. Therefore, 18-gauge 2 cm core biopsy within the left hepatic lobe was performed. Samples were deemed preliminarily adequate by pathology. The patient tolerated the procedure well and no immediate complications were evident. IMPRESSION: Successful ultrasound guided 18-gauge core biopsy and fine-needle aspiration of the left hepatic lobe. Discrete lesions on prior CT an MRI were not well visualized by sonography however random biopsy within the left hepatic lobe was performed given extensive infiltrative appearance on those studies. ACT 112: Negative or not required by law. Electronically signed by: Galen Arrieta M.D. 10/11/2021 2:09 PM PG Care Time/CCT Total # of Minutes Spent Total Time Spent with Patient: Total time spent is greater than 50% in coordination of care (as documented) at patient's floor/unit and/or counseling patient: Coding Level of Care Code 35170 Subseq Hosp Care Lvl 3 Diagnoses Liver masses R16.0 FEI (acute liver failure) K72.00 Type 2 diabetes mellitus E11.9 Leukocytosis D72.829 Breast cancer C50.919 Hyperlipidemia E78.5 HTN (hypertension) I10 Gastritis K29.70 Fatigue R53.83 Jaundice R17
[2021-10-11 09:28] LABS: INR 1.4 (0.9-1.1); Prothrombin Time 14.3 Seconds (9.0-12.0)
[2021-10-11 09:33] LABS: RBC Morphology Unremarkable
[2021-10-11 09:42] LABS: Alanine Aminotransferase 110 U/L (7-52); Albumin Globulin Ratio 0.9 (0.9-2); Albumin Level 2.7 gm/dl (3.4-5.0); Alkaline Phosphatase 478 U/L (34-104); Anion Gap 10 (3-11); Aspartate Aminotransferase 256 U/L (13-39); BUN Creatinine Ratio 19.3 (10-20); Bilirubin,Total 19.4 mg/dl (0.2-1.0); Blood Urea Nitrogen 22 mg/dl (6-23); Calcium 8.5 mg/dl (8.5-10.1); Carbon Dioxide 24 mmol/L (21-32); Chloride 100 mmol/L (98-107); Creatinine Clr Calc Pharmacy 41.8 ml/min; Est GFR (African American) 53.3 ml/min; Glucose 94 mg/dl (70-99(Fasting)); HDL Cholesterol 9 mg/dl; Magnesium 2.3 mg/dl (1.7-2.4); Potassium 3.8 mmol/L (3.5-5.1); Sodium 134 mmol/L (136-145); Total Protein 5.7 gm/dl (6.0-8.3); Triglycerides 260 mg/dl (0-150); VLDL Cholesterol 52 mg/dl (0-30)
--- NOTE | 2021-10-11 09:57 | Gastrointestinal Consultation ---
Date of Consultation October 11, 2021 Assessment & Plan (1) Liver masses: -Patient unsure of how aggressively she wishes to pursue these lesions. She notes to me today that her biggest priority is to be pain-free. No role for biliary stenting based on MRCP imaging. Would encourage primary team to discuss both palliative options and options of pursuing a liver biopsy with oncology eval. (2) FEI (acute liver failure): MELD 29. -INR q 12 hours -Could consider tertiary transfer for management though patient is very likely not a transplant candidate due to age/metastatic lesions -Follow CMP -See #1 Prognosis guarded. Supervising Physician Co-Signing Physician Notes Agree with CARO Goddard as above Abd: Soft, Tender throughout, ND, +BS Continue current therapy and supportive care Will defer to Oncology for treatment recommendations Will follow clinical course and make recommendations as needed. History of Present Illness Reason for Consultation: new jaundice, liver masses, history of breast cancer Attending Physician: Claudia Clark MD History of Present Illness Patient is a 76 yo female with a history of breast cancer s/p lumpectomy & chemo in 2009, HTN, DM2, appendectomy, hysterectomy. Patient was sent to the ED due to new onset jaundice and abdominal tenderness x 1-[address] imaging has yielded findings of innumerable hepatic lesions suspicious for mets. There is no intra/extrahepatic ductal dilatation. Labs suggestive of acute liver failure with T bili is 21.5, D Bili 13.6, INR 2.2, WBC 17,970, AST 248, ALT 116, AP 571, Hep A, B, & C pending. Tylenol level appropriate. Vitamin K was given by PCP. MELD 29. She reports stopping drinking 2 years ago, and never smoked. No pertinent family history of GI issues. Patient notes that her number one priority at present is avoiding pain. Allergies Allergy/AdvReac Type Severity Reaction Status Date / Time No Known Allergies Allergy Verified 10/10/21 18:26 Home Medications Medication Instructions Recorded Confirmed Type pravastatin 20 mg tablet 20 mg PO DAILY #90 tab 11/14/20 10/10/21 Rx lisinopril 10 mg tablet 10 mg PO DAILY #90 tab 03/20/21 10/10/21 Rx metformin 500 mg tablet 500 mg PO BID #180 tab 12/07/21 05/31/22 Rx metoprolol succinate 50 mg 50 mg PO DAILY #90 tab 06/21/21 10/10/21 Rx tablet,extended release 24 hr hydrochlorothiazide 12.5 mg tablet 12.5 mg PO DAILY #30 tab 07/13/21 10/10/21 Rx naproxen sodium 220 mg tablet 220 mg PO DIRECTED PRN 10/10/21 10/10/21 History Patient History Medical History Breast cancer Breast cancer Gastritis HTN (hypertension) Hyperlipidemia Stomach tumor (benign) Type 2 diabetes mellitus Surgical History Status post breast biopsy Family History Sister Diabetes Social History Smoking Status: Never smoker Second Hand Exposure: Yes (daughter); Hx Alcohol Use: No Hx Substance Use: No Preferred Language: Kosovan Communication Ability: Effective Hearing Ability: Normal 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 Beliefs That Will Affect Care: None marital status: Current Living Situation: Family Current Living Situation Comment: son and daughter in law current occupational status: retired How many Children do You have: 6 Other Information That Helps Us Care for You: No Feels Safe at Home: Yes Safety Concerns: Feels Safe At This Time Childhood Exposure to Second-Hand Smoke: Yes caffeine: Yes (coffee) Dental Care, Regularly: No Physical Activity Frequency: Other Physical Activity Frequency Comment: walking throughout daily Seatbelt Use: always Sunscreen Use: Yes Assistive Devices: Denture - Upper and Glasses Review of Systems Constitutional: no fever and no chills Respiratory: no cough and no dyspnea Cardiovascular: no chest pain Gastrointestinal: + abdominal pain Integumentary: + yellowing of the skin Psychiatric: no problem reported Hematologic / Lymphatic: no unexplained weight loss Physical Exam Constitutional: + ill appearing Neck: normal visual inspection Respiratory: normal respiratory effort Cardiovascular: Rate/Rhythm: regular rate Chest (Breasts): Chest: normal inspection of chest Gastrointestinal (Abdomen): Inspection/Auscultation: normal bowel sounds Percussion/Palpation: + abdomen tender and abdomen soft Musculoskeletal: Head/Neck/Chest: normocephalic Psychiatric: Orientation: alert and oriented x 3 Results & Data ([facility]) Vital Signs (Past 12 Hours) Vital Signs Temp Pulse Resp BP Pulse Ox 10/11/21 08:01 37.0 C 79 16 120/66 90 10/10/21 23:30 36.5 C 78 18 134/71 96 PG Care Time/CCT Total # of Minutes Spent Total Time Spent with Patient: Total time spent is greater than 50% in coordination of care (as documented) at patient's floor/unit and/or counseling patient: Coding Level of Care Code 92002 Initial Inpt Care Lvl 3 Diagnoses CUSTODIAL (acute liver failure) K72.00 Liver masses R16.0
[2021-10-11] MEDS ORDERED: LACTULOSE SYRUP 20 GM/30 ML UDC PO ONE (12:15)
[2021-10-11 12:48] LABS: Iron 139 mcg/dl (35-150); Unsaturated Iron Binding Cap < 55 mcg/dl (155-355)
[2021-10-11] MEDS ORDERED: OPTIRAY 320 100ml IV ONE (13:56)
--- NOTE | 2021-10-11 14:11 | Ultrasound Report ---
ULTRASOUND-GUIDED CORE BIOPSY AND FINE NEEDLE ASPIRATION OF LEFT HEPATIC LOBE CLINICAL HISTORY: numerous liver lesions, concerns for metastatic vs primary COMPARISON STUDY: CT of the abdomen and pelvis and MRCP October 10, 2021. PROCEDURE: The procedure, risks and benefits were discussed with the patient and informed written con sent was obtained. The procedure was performed by Dr. Arrieta following a timeout. Sonography of th e liver demonstrated heterogeneous appearance of the liver with nodularity of the liver surface. The lesions shown on prior CT and MRI were not well visualized by sonography however random biopsy within the left hepatic lobe was performed given extensive infiltrative appearance on those exams. Skin was prepped and draped in sterile fashion and local anesthesia was achieved with 1% lidocaine. Under dir ect ultrasound guidance, 2 22-gauge fine needle aspirations were performed utilizing Jose needles . Malignant cells were noted. Therefore, 18-gauge 2 cm core biopsy within the left hepatic lobe was p erformed. Samples were deemed preliminarily adequate by pathology. The patient tolerated the procedur e well and no immediate complications were evident. IMPRESSION: Successful ultrasound guided 18-gauge core biopsy and fine-needle aspiration of the left hepatic lobe. Discrete lesions on prior CT an MRI were not well visualized by sonography however ran dom biopsy within the left hepatic lobe was performed given extensive infiltrative appearance on thos e studies. ACT 112: Negative or not required by law. Electronically signed by: Galen Arrieta M.D. 10/11/2021 2:09 PM
--- NOTE | 2021-10-11 14:39 | CT Scan Report ---
CHEST CT WITH CONTRAST CT DOSE: 281.02 mGycm HISTORY: Acute shortness of breath. Hepatic metastatic disease. liver mets, eval for met disease TECHNIQUE: Multiaxial CT images of the chest were performed following the IV administration of 94 cc of Optiray. A dose lowering technique was utilized adhering to the principles of ALARA. COMPARISON: CT abdomen and pelvis 10/10/2021. FINDINGS: Subcentimeter hypodense right-sided thyroid nodule. 7 mm right tracheoesophageal recess lym ph node. No pathologically enlarged lymph nodes of the chest identified. Surgical clips are noted wit hin the left axilla. Biopsy clip is in the superior aspect of the left central breast. The heart is u pper limits of normal in size. Mild coronary artery calcifications. Atherosclerosis of the aorta with out aneurysm. The opacified pulmonary artery is unremarkable. There is no pneumothorax, pleural effusion or overt pulmonary edema. Consolidation of the right middl e lobe with traction bronchiectasis appears chronic. Mild subpleural reticulation of the anterior lef t upper lobe and lingula suggest scarring. 3 mm nodule of the left upper lobe on image 66. There are a few scattered additional low suspicion solid nodules measuring up to 4 mm within the right upper lo be on image 73. The central airways appear patent. Mild linear scarring/atelectasis of the right uppe r lobe. There is noted within the subcutaneous tissues of the anterior abdominal wall. Trace actually luminal air is also noted within the peritoneal space of the upper abdomen on image 227 of series 4 which is likely postprocedural. Minimal air within the liver is again noted with innumerable hepatic metastas is. Small volume ascites with nonspecific distal esophageal wall thickening. Upper abdominal lymphade nopathy is partially imaged. No acute fracture or definite osseous metastatic disease. Degenerative c hanges of the shoulders and spine. IMPRESSION: 1. There are a few scattered low suspicion solid pulmonary nodules measuring up to 4 mm. No definite evidence of pulmonary metastatic disease. 2. No thoracic lymphadenopathy. 3. Innumerable hepatic metastasis redemonstrated with possible portal venous gas. 4. Partially imaged pathologic upper abdominal lymphadenopathy. 5. Abdominal ascites. 6. Mild distal esophageal wall thickening. ACT 112: Negative or not required by law. Electronically signed by: Eric Khanna M.D. 10/11/2021 2:36 PM
[2021-10-11] MEDS ORDERED: traMADol HCL 50 MG TABLET PO PRN (14:50)
[2021-10-11] MEDS: cefTRIAXone SODIUM 2,000 MG in DEXTROSE 5% 50 ML IV SCH (18:24)
--- NOTE | 2021-10-12 08:05 | Hospitalist Progress Note ---
Date of Service October 12, 2021 Assessment & Plan (1) Liver masses: Plan: Patient with history of breast ca s/p lumpectomy and chemotherapy x 8 cycles in 2009. Routine mammograms yearly up until last year noted Seen by PCP and sent for labs and instructed to go to ER for imaging/evaluation Given Vit K for INR>2, improved today MELD 29 CTAP on admission with liver infiltrated by numerous metastatic lesions concerning for primary vs metastatic disease (Of note, not nola disease on imaging, making met breast ca unlikely) MRCP without evidence for obstruction amenable to stenting AFP sent, CEA added given rectal thickening/esophageal thickening on imaging but non-specific -- PATIENT NEVER WITH PRIOR EGD/COLONOSCOPY IN PAST C-scope 10 years ago, never had EGD Given dose lactulose as patient reported not really moving bowels, unable to add level to labs --> +bm, ORDERED 20 BID AND MONITOR BM LIVER BX 10/11 -- MONITOR Heparin placed on hold Liver biopsy as performed by radiology--> Monitor pathology Discussed with Dr Gregg about patient -- rec CT chest for evaluated met disease CT chest with few scattered low suspicion solid pulm nodules measuring up to 4mm, no definite evidence for met pulm disease -No thoracic lymphadenopathy -Partially imaged pathologic upper abdominal lymphadenopathy with mild distal esophageal wall thickening and small amount ascites CEA LEVEL RETURNED SIGNIFICANTLY ELEVATED >850 Oncology consulted this morning patient wants active treatment. rec port placement General Surgery consulted GI on consult -- will follow along, rec INR Q12 but no bleeding and holding heparin for biopsy but will monitor in AM Resume Heparin SQ Palliative to follow peripheral for now for goals of care however patient has voiced multiple times she wants path back/consideration of options and told oncology wants treatment (2) MCFP (acute liver failure): Plan: Secondary to likely invasive masses favoring cancer - MRCP as above INR 2.2, given Vit K --> INR currently 1.3 TB 21.5--> 19.4 --> 20.7 DB 13.6 AST 248 --> 183 ALT 116--> 95 ALP 571--> 404 Albumin 3.1-->2.7 Hepatitis panel pending -- non-reactive TRG 260 , cholesterol and other studies sent out given elevation in liver testing AFP pending CEA LEVEL RETURNED SIGNIFICANTLY ELEVATED >850 concerning for GI primary Monitor INR no bleeding will resume heparin this evening (3) Type 2 diabetes mellitus: Plan: Last a1c 7.7, holding metformin while inpatient BSG AC/HS, ISS while inpatient BSGs acceptable (4) Leukocytosis: Plan: WBC 17 afebrile on admission, but started empiric coverage with rocephin, ?UTI --> WBC decreased further. Remains afebrile Continue rocephin, monitor blood cultures -- did report fatigue, slightly improved. while denied urinary sx, urine cx with staph species -- can transition to PO tomorrow if bcx remain ngtd Procal was 1.01 on admission Lactic unable to be drawn (5) Breast cancer: Plan: HX of with chemotherapy 2009 - She does not recall being on any other agents such as tamoxifen or other but did admit to regular yearly mammograms no c-scope in past, see above (6) Hyperlipidemia: Plan: placed statin on hold given elevated liver enzymes (7) HTN (hypertension): Plan: on HCTZ 12.5mg, lisinopril 10mg, metoprolol 50mg daily HCTZ likely contributing to hyponatremia as well --- on hold --> Na 134 on AM labs Also holding lisinopril given Cr 1.32 on admit -- stable 1.17 BP stable 126/66 Monitor (8) Gastritis: Plan: reported, on protonix IV BID reports stable eating this morning (9) Fatigue: Plan: secondary to above monitor (10) Jaundice: Plan: about the same, 2nd to above Plan: continued inpatient stay general surgery consulted for port placement Admission and Anticipated Discharge Date Admission Date: October 10, 2021 Supervising Physician Co-Signing Physician Notes LUCAS Supervision Note: I did not personally see or examine the patient today, but I verified all delcid points of LUCAS Richmond's assessment and plan with the following exceptions/additions: None Subjective Patient evaluated this morning. Fatigued but states slightly improved. Tolerating diet and given lactulose yesterday, reports she was able to have BM this morning. Discussed biopsy can take some time for results and could potentially discharge with outpatient follow up. Patient uneasy about this and would prefer to monitor overnight to ensure bowels continue to move and energy improved. Discussed fatigue can very well be from underlying malignancy/process, but also possible UTI and will continue abx for now and use PO at discharge. No fever/chills, chest pain, shortness of breath, nausea, dysuria at this time. Will order lactulose BID and discussed with patient can continue lactulose to assist with BMs at home. Ammonia level re-ordered for this morning. INR stable on repeat, no increased bleeding following biopsy. Review of Systems Review of Systems: All systems reviewed & are unremarkable except as noted in HPI & below Physical Exam Physical Exam: General: WD elderly female resting quietly in bed upon entry, NAD, +JAUNDICE, reports fatigue but improved HEENT: icteric sclera, pupils equal and reactive, trachea midline without deviation Resp: CTAB, diminished in bases, on room air, no wheezing/crackles CV: RRR, no m/r/g, no calf tenderness GI:+ BS, +hepatomegaly, non-tender to palpation, no rebound/guarding : no smith Psych: alert, oriented to person/place/time, cooperative Neuro: moves all extremities, follow commands, no facial droop, CN intact grossly, no asterixis noted or tremor Results & Data Results & Data ([facility]) Vital Signs (Past 12 Hours) Vital Signs Temp Pulse Resp BP BP Pulse Ox 10/12/21 07:15 36.6 C 74 18 116/72 90 10/12/21 03:23 37.0 C 66 16 106/68 92 10/11/21 21:52 37.0 C 72 16 102/60 91 Laboratory Results 10/11/21 10/11/21 10/11/21 Range/Units 20:37 16:34 12:16 WBC (4.8-10.8) K/uL RBC (4.2-5.4) M/uL Hgb (12.0-16.0) g/dL Hct (37-47) % MCV (80-100) fL MCH (25-34) pg MCHC (32-36) g/dL RDW Std Deviation (36.4-46.3) fL RDW Coeff of Frida (11.5-14.5) % Plt Count (130-400) K/uL MPV (7.4-10.4) fL Immature Gran % (Auto) % Neut % (Auto) % Lymph % (Auto) % Metcalfe % (Auto) % Eos % (Auto) % Baso % (Auto) % Neut # (Auto) (1.4-6.5) K/uL Lymph # (Auto) (1.2-3.4) K/uL Metcalfe # (Auto) (0.11-0.59) K/uL Eos # (Auto) (0-0.5) K/uL Baso # (Auto) (0-0.2) K/uL Immature Gran # (Auto) (0.00-0.02) K/uL RBC Morphology PT (9.0-12.0) Seconds INR (0.9-1.1) Sodium (136-145) mmol/L Potassium (3.5-5.1) mmol/L Chloride (98-107) mmol/L Carbon Dioxide (21-32) mmol/L Anion Gap (3-11) BUN (6-23) mg/dl Creatinine (0.6-1.2) mg/dl Est Cr Clr Drug Dosing ml/min Est GFR ( Amer) ml/min Est GFR (Non-Af Amer) ml/min BUN/Creatinine Ratio (10-20) Glucose (70-99(Fasting)) mg/dl POC Glucose 130 H 129 H (70-99) mg/dl Calcium (8.5-10.1) mg/dl Magnesium (1.7-2.4) mg/dl Iron 139 (35-150) mcg/dl TIBC TNP Unsaturated IBC < 55 L (155-355) mcg/dl Transferrin % Sat TNP Total Bilirubin (0.2-1.0) mg/dl AST (13-39) U/L ALT (7-52) U/L Alkaline Phosphatase (34-104) U/L Total Protein (6.0-8.3) gm/dl Albumin (3.4-5.0) gm/dl Globulin (2.5-4.0) gm/dl Albumin/Globulin Ratio (0.9-2) Triglycerides (0-150) mg/dl Cholesterol LDL Cholesterol, Calc VLDL Cholesterol, Calc (0-30) mg/dl HDL Cholesterol mg/dl Cholesterol/HDL Ratio Miscellaneous Test 10/11/21 10/11/21 10/11/21 Range/Units 12:12 08:10 08:10 WBC (4.8-10.8) K/uL RBC (4.2-5.4) M/uL Hgb (12.0-16.0) g/dL Hct (37-47) % MCV (80-100) fL MCH (25-34) pg MCHC (32-36) g/dL RDW Std Deviation (36.4-46.3) fL RDW Coeff of Frida (11.5-14.5) % Plt Count (130-400) K/uL MPV (7.4-10.4) fL Immature Gran % (Auto) % Neut % (Auto) % Lymph % (Auto) % Metcalfe % (Auto) % Eos % (Auto) % Baso % (Auto) % Neut # (Auto) (1.4-6.5) K/uL Lymph # (Auto) (1.2-3.4) K/uL Metcalfe # (Auto) (0.11-0.59) K/uL Eos # (Auto) (0-0.5) K/uL Baso # (Auto) (0-0.2) K/uL Immature Gran # (Auto) (0.00-0.02) K/uL RBC Morphology PT 14.3 H (9.0-12.0) Seconds INR 1.4 H (0.9-1.1) Sodium (136-145) mmol/L Potassium (3.5-5.1) mmol/L Chloride (98-107) mmol/L Carbon Dioxide (21-32) mmol/L Anion Gap (3-11) BUN (6-23) mg/dl Creatinine (0.6-1.2) mg/dl Est Cr Clr Drug Dosing ml/min Est GFR ( Amer) ml/min Est GFR (Non-Af Amer) ml/min BUN/Creatinine Ratio (10-20) Glucose (70-99(Fasting)) mg/dl POC Glucose 132 H (70-99) mg/dl Calcium (8.5-10.1) mg/dl Magnesium (1.7-2.4) mg/dl Iron (35-150) mcg/dl TIBC Unsaturated IBC (155-355) mcg/dl Transferrin % Sat Total Bilirubin (0.2-1.0) mg/dl AST (13-39) U/L ALT (7-52) U/L Alkaline Phosphatase (34-104) U/L Total Protein (6.0-8.3) gm/dl Albumin (3.4-5.0) gm/dl Globulin (2.5-4.0) gm/dl Albumin/Globulin Ratio (0.9-2) Triglycerides (0-150) mg/dl Cholesterol LDL Cholesterol, Calc VLDL Cholesterol, Calc (0-30) mg/dl HDL Cholesterol mg/dl Cholesterol/HDL Ratio Miscellaneous Test REPORT 10/11/21 10/11/21 10/11/21 Range/Units 08:10 08:10 08:02 WBC 15.21 H (4.8-10.8) K/uL RBC 4.48 (4.2-5.4) M/uL Hgb 13.7 (12.0-16.0) g/dL Hct 40.4 (37-47) % MCV 90.2 (80-100) fL MCH 30.6 (25-34) pg MCHC 33.9 (32-36) g/dL RDW Std Deviation 72.6 H (36.4-46.3) fL RDW Coeff of Frida 22.1 H (11.5-14.5) % Plt Count 376 (130-400) K/uL MPV 10.1 (7.4-10.4) fL Immature Gran % (Auto) 1.6 % Neut % (Auto) 75.6 % Lymph % (Auto) 10.9 % Metcalfe % (Auto) 11.0 % Eos % (Auto) 0.6 % Baso % (Auto) 0.3 % Neut # (Auto) 11.51 H (1.4-6.5) K/uL Lymph # (Auto) 1.66 (1.2-3.4) K/uL Metcalfe # (Auto) 1.67 H (0.11-0.59) K/uL Eos # (Auto) 0.09 (0-0.5) K/uL Baso # (Auto) 0.04 (0-0.2) K/uL Immature Gran # (Auto) 0.24 H (0.00-0.02) K/uL RBC Morphology Unremarkable PT (9.0-12.0) Seconds INR (0.9-1.1) Sodium 134 L (136-145) mmol/L Potassium 3.8 (3.5-5.1) mmol/L Chloride 100 (98-107) mmol/L Carbon Dioxide 24 (21-32) mmol/L Anion Gap 10 (3-11) BUN 22 (6-23) mg/dl Creatinine 1.14 (0.6-1.2) mg/dl Est Cr Clr Drug Dosing 41.8 ml/min Est GFR ( Amer) 53.3 ml/min Est GFR (Non-Af Amer) 46.0 ml/min BUN/Creatinine Ratio 19.3 (10-20) Glucose 94 (70-99(Fasting)) mg/dl POC Glucose 96 (70-99) mg/dl Calcium 8.5 (8.5-10.1) mg/dl Magnesium 2.3 (1.7-2.4) mg/dl Iron (35-150) mcg/dl TIBC Unsaturated IBC (155-355) mcg/dl Transferrin % Sat Total Bilirubin 19.4 H (0.2-1.0) mg/dl AST 256 H (13-39) U/L ALT 110 H (7-52) U/L Alkaline Phosphatase 478 H (34-104) U/L Total Protein 5.7 L (6.0-8.3) gm/dl Albumin 2.7 L (3.4-5.0) gm/dl Globulin 3.0 (2.5-4.0) gm/dl Albumin/Globulin Ratio 0.9 (0.9-2) Triglycerides 260 H (0-150) mg/dl Cholesterol TNP LDL Cholesterol, Calc TNP VLDL Cholesterol, Calc 52 H (0-30) mg/dl HDL Cholesterol 9 mg/dl Cholesterol/HDL Ratio TNP Miscellaneous Test Diagnostic Findings Cholangiopancreatography MRI 10/10/21 19:47 MRCP CLINICAL HISTORY: Elevated bilirubin. Jaundice. Liver metastases. COMPARISON STUDY: Abdominal CT dated 10/10/2021. TECHNIQUE: Abdominal MRCP is performed utilizing various T2-weighted sequences in the axial and coronal planes. IV contrast was not administered for this examination. 3-D reformats are created and assessed. The examination is degraded by motion artifact as well as by the presence of abdominal ascites. FINDINGS: The gallbladder is completely contracted and not well evaluated. No obvious gallstones are identified. There is no intra or extrahepatic biliary ductal dilatation. The common bile duct is ectatic and measures up to 5 mm in diameter. No intraluminal filling defects are clearly identified to suggest choledocholithiasis. The pancreatic duct is normal in caliber. There is distortion of the intrahepatic bile ducts, likely related to mass effect from hepatic metastases. The liver is enlarged, measuring 21 cm in length. The liver is infiltrated by numerous mass lesions typical for metastatic disease. There is upper abdominal lymphadenopathy. Upper abdominal ascites is noted. The unenhanced spleen, pancreas, adrenal glands, and kidneys are grossly unremarkable but not well assessed. The abdominal aorta is normal in caliber. There are also mildly enlarged upper retroperitoneal lymph nodes. No destructive bony lesion is clearly identified. There is no pleural effusion. IMPRESSION: 1. The liver is enlarged and infiltrated by numerous metastatic lesions. 2. The gallbladder is completely contracted and not well evaluated. 3. There is no significant intra or extrahepatic biliary ductal dilatation. 4. There is significant distortion of the intra and extrahepatic bile ducts, likely related to mass effect from metastatic lesions. 5. There is upper abdominal and retroperitoneal lymphadenopathy as well as abdominal ascites. Dictated: 10/11/2021 7:18 AM Transcribed: 10/11/2021 7:44 AM Kristin [id number] [facility] Electronically signed by: Matthew Anthony M.D. 10/11/2021 8:[address] 10/11/21 11:[address] WITH CONTRAST CT DOSE: 281.02 mGycm HISTORY: Acute shortness of breath. Hepatic metastatic disease. liver mets, eval for met disease TECHNIQUE: Multiaxial CT images of the chest were performed following the IV administration of 94 cc of Optiray. A dose lowering technique was utilized adhering to the principles of ALARA. COMPARISON: CT abdomen and pelvis 10/10/2021. FINDINGS: Subcentimeter hypodense right-sided thyroid nodule. 7 mm right tracheoesophageal recess lymph node. No pathologically enlarged lymph nodes of the chest identified. Surgical clips are noted within the left axilla. Biopsy clip is in the superior aspect of the left central breast. The heart is upper limits of normal in size. Mild coronary artery calcifications. Atherosclerosis of the aorta without aneurysm. The opacified pulmonary artery is unremarkable. There is no pneumothorax, pleural effusion or overt pulmonary edema. Consolidation of the right middle lobe with traction bronchiectasis appears chronic. Mild subpleural reticulation of the anterior left upper lobe and lingula suggest scarring. 3 mm nodule of the left upper lobe on image 66. There are a few scattered additional low suspicion solid nodules measuring up to 4 mm within the right upper lobe on image 73. The central airways appear patent. Mild linear scarring/atelectasis of the right upper lobe. There is noted within the subcutaneous tissues of the anterior abdominal wall. Trace actually luminal air is also noted within the peritoneal space of the upper abdomen on image 227 of series 4 which is likely postprocedural. Minimal air within the liver is again noted with innumerable hepatic metastasis. Small volume ascites with nonspecific distal esophageal wall thickening. Upper abdominal lymphadenopathy is partially imaged. No acute fracture or definite osseous metastatic disease. Degenerative changes of the shoulders and spine. IMPRESSION: 1. There are a few scattered low suspicion solid pulmonary nodules measuring up to 4 mm. No definite evidence of pulmonary metastatic disease. 2. No thoracic lymphadenopathy. 3. Innumerable hepatic metastasis redemonstrated with possible portal venous gas. 4. Partially imaged pathologic upper abdominal lymphadenopathy. 5. Abdominal ascites. 6. Mild distal esophageal wall thickening. ACT 112: Negative or not required by law. Electronically signed by: Eric Khanna M.D. 10/11/2021 2:36 PM Liver Biopsy Ultrasound 10/11/21 11:56 ULTRASOUND-GUIDED CORE BIOPSY AND FINE NEEDLE ASPIRATION OF LEFT HEPATIC LOBE CLINICAL HISTORY: numerous liver lesions, concerns for metastatic vs primary COMPARISON STUDY: CT of the abdomen and pelvis and MRCP October 10, 2021. PROCEDURE: The procedure, risks and benefits were discussed with the patient and informed written consent was obtained. The procedure was performed by Dr. Arrieta following a timeout. Sonography of the liver demonstrated heterogeneous appearance of the liver with nodularity of the liver surface. The lesions shown on prior CT and MRI were not well visualized by sonography however random biopsy within the left hepatic lobe was performed given extensive infiltrative appearance on those exams. Skin was prepped and draped in sterile fashion and local anesthesia was achieved with 1% lidocaine. Under direct ultrasound guidance, 2 22-gauge fine needle aspirations were performed utilizing Jose needles. Malignant cells were noted. Therefore, 18-gauge 2 cm core biopsy within the left hepatic lobe was performed. Samples were deemed preliminarily adequate by pathology. The patient tolerated the procedure well and no immediate complications were evident. IMPRESSION: Successful ultrasound guided 18-gauge core biopsy and fine-needle aspiration of the left hepatic lobe. Discrete lesions on prior CT an MRI were not well visualized by sonography however random biopsy within the left hepatic lobe was performed given extensive infiltrative appearance on those studies. ACT 112: Negative or not required by law. Electronically signed by: Galen Arrieta M.D. 10/11/2021 2:09 PM Aspiration 10/11/21 13:56 ULTRASOUND-GUIDED CORE BIOPSY AND FINE NEEDLE ASPIRATION OF LEFT HEPATIC LOBE CLINICAL HISTORY: numerous liver lesions, concerns for metastatic vs primary COMPARISON STUDY: CT of the abdomen and pelvis and MRCP October 10, 2021. PROCEDURE: The procedure, risks and benefits were discussed with the patient and informed written consent was obtained. The procedure was performed by Dr. Arrieta following a timeout. Sonography of the liver demonstrated heterogeneous appearance of the liver with nodularity of the liver surface. The lesions shown on prior CT and MRI were not well visualized by sonography however random biopsy within the left hepatic lobe was performed given extensive infiltrative appearance on those exams. Skin was prepped and draped in sterile fashion and local anesthesia was achieved with 1% lidocaine. Under direct ultrasound guidance, 2 22-gauge fine needle aspirations were performed utilizing Jose needles. Malignant cells were noted. Therefore, 18-gauge 2 cm core biopsy within the left hepatic lobe was performed. Samples were deemed preliminarily adequate by pathology. The patient tolerated the procedure well and no immediate complications were evident. IMPRESSION: Successful ultrasound guided 18-gauge core biopsy and fine-needle aspiration of the left hepatic lobe. Discrete lesions on prior CT an MRI were n ot well visualized by sonography however random biopsy within the left hepatic lobe was performed given extensive infiltrative appearance on those studies. ACT 112: Negative or not required by law. Electronically signed by: Galen Arrieta M.D. 10/11/2021 2:09 PM PG Care Time/CCT Total # of Minutes Spent Total Time Spent with Patient: Total time spent is greater than 50% in coordination of care (as documented) at patient's floor/unit and/or counseling patient: Coding Level of Care Code 59250 Subseq Hosp Care Lvl 3 Diagnoses Liver masses R16.0 MCFP (acute liver failure) K72.00 Type 2 diabetes mellitus E11.9 Leukocytosis D72.829 Breast cancer C50.919 Hyperlipidemia E78.5 HTN (hypertension) I10 Gastritis K29.70 Fatigue R53.83 Jaundice R17
[2021-10-12] MEDS: METOPROLOL SUCC 50MG EXT REL TAB PO SCH (08:16)
[2021-10-12] MEDS: PANTOprazole 40 MG in SYRINGE 0 ML IV SCH ×2 (08:16→21:38)
[2021-10-12] MEDS: DOCUSATE SODIUM/SENNA 50/8.6MG TAB PO SCH (08:20)
[2021-10-12 10:57] LABS: Basophils # (auto) 0.04 K/uL (0-0.2); Basophils % (auto) 0.3 %; Eosinophils # (auto) 0.08 K/uL (0-0.5); Eosinophils % (auto) 0.5 %; Hematocrit (blood only) 41.5 % (37-47); Hemoglobin 13.8 g/dL (12.0-16.0); Immature Granulocytes # (auto) 0.35 K/uL (0.00-0.02); Immature Granulocytes % (auto) 2.4 %; Lymphocytes # (auto) 1.25 K/uL (1.2-3.4); Lymphocytes % (auto) 8.4 %; Mean Corpuscular Hemoglobin 30.5 pg (25-34); Mean Corpuscular Hgb Conc 33.3 g/dL (32-36); Mean Corpuscular Volume 91.8 fL (80-100); Mean Platelet Volume 9.6 fL (7.4-10.4); Monocytes # (auto) 1.56 K/uL (0.11-0.59); Monocytes % (auto) 10.5 %; Neutrophils # (auto) 11.52 K/uL (1.4-6.5); Neutrophils % (auto) 77.9 %; Platelet Count 362 K/uL (130-400); RDW Standard Deviation 74.3 fL (36.4-46.3); Red Blood Count 4.52 M/uL (4.2-5.4)
[2021-10-12 10:58] LABS: INR 1.3 (0.9-1.1); Prothrombin Time 13.2 Seconds (9.0-12.0)
[2021-10-12 11:15] LABS: RBC Morphology Unremarkable
[2021-10-12 11:46] LABS: AFP Tumor Marker Serum 4.3 ng/mL; HBSAG NON-REACTIVE (NON-REACTIVE); Hepatitis A Antibody IgM NON-REACTIVE (NON-REACTIVE); Hepatitis B Core Antibody IgM NON-REACTIVE (NON-REACTIVE)
[2021-10-12 11:57] LABS: Potassium 3.7 mmol/L (3.5-5.1)
[2021-10-12 11:58] LABS: Albumin Globulin Ratio 0.8 (0.9-2); Albumin Level 2.6 gm/dl (3.4-5.0); BUN Creatinine Ratio 19.7 (10-20); Bilirubin,Total 20.7 mg/dl (0.2-1.0); Calcium 8.6 mg/dl (8.5-10.1); Creatinine Clr Calc Pharmacy 40.7 ml/min; Est GFR (African American) 51.7 ml/min; Est GFR (Non-African American) 44.6 ml/min; Globulin 3.2 gm/dl (2.5-4.0); Magnesium 2.3 mg/dl (1.7-2.4); Total Protein 5.8 gm/dl (6.0-8.3)
[2021-10-12] MEDS: LACTULOSE SYRUP 20 GM/30 ML UDC PO SCH ×2 (12:25→21:38)
--- NOTE | 2021-10-12 13:37 | Electrocardiogram Report ---
Test Reason : Blood Pressure : / mmHG Vent. Rate : 073 BPM Atrial Rate : 073 BPM P-R Int : 190 ms QRS Dur : 080 ms QT Int : 444 ms P-R-T Axes : 063 -43 004 degrees QTc Int : 489 ms Normal sinus rhythm Left axis deviation Old Inferior infarct Abnormal ECG No previous ECGs available Confirmed by Errol Holland ([id number]) on 10/12/2021 1:36:55 PM Referred By: Moreno Ac Confirmed By:Errol Holland
[2021-10-12] MEDS: cefTRIAXone SODIUM 2,000 MG in DEXTROSE 5% 50 ML IV SCH (17:45)
--- NOTE | 2021-10-12 21:17 | Consultation Report ---
DATE OF SERVICE: 10/12/2021 REASON FOR CONSULT: Liver lesions, lymphadenopathy, status post liver biopsy. HISTORY OF PRESENT ILLNESS: Ms. Ronquillo is a very pleasant 76-year-old female who presented to the ED on 10/10/2021 with jaundice and abdominal pain. The patient had presented to her PCP who noted jaundice and obtained labs, which revealed conjugated hyperbilirubinemia. CT abdomen and pelvis obtained by her PCP on 10/10/2021 revealed innumerable hypodense hepatic masses suggestive of metastatic disease, upper abdominal pathologic lymphadenopathy, small amount of ascites, apparent rectal wall thickening and small hiatal hernia. On arrival to the ED, MRCP was performed, which revealed enlarged liver infiltrated by numerous metastatic lesions with no significant intra or extrahepatic biliary ductal dilatation and upper abdominal and retroperitoneal lymphadenopathy as well as abdominal ascites. CT chest on 10/11/2021 revealed scattered low- suspicion solid pulmonary nodules measuring up to 4 mm, innumerable hepatic metastasis with possible portal venous gas, pathologic upper abdominal lymphadenopathy, abdominal ascites and mild distal esophageal wall thickening. The patient underwent ultrasound-guided liver biopsy on 10/11/2021 with preliminary pathology suggestive of GI primary, likely colorectal. During my evaluation of the patient today, she complains of jaundice, which she noticed about a month ago. Also complains of constipation and occasional abdominal discomfort. She endorses weight loss. She states that her last colonoscopy was more than 10 years ago. CURRENT MEDICATIONS: 1. Pravastatin. 2. Lisinopril. 3. Metformin. 4. Metoprolol. 5. Hydrochlorothiazide. 6. Naproxen. ALLERGIES: No known drug allergies. PAST MEDICAL HISTORY: 1. History of triple-negative breast cancer. 2. Hypertension. 3. Hyperlipidemia. 4. Type 2 diabetes mellitus. PAST SURGICAL HISTORY: Lumpectomy on 05/16/2009. FAMILY HISTORY: Noncontributory. SOCIAL HISTORY: Denies smoking. Endorses occasional alcohol use and denies illicit drug use. REVIEW OF SYSTEMS: CONSTITUTIONAL: Endorses weight loss. Denies fever, chills or night sweats. RESPIRATORY: Denies cough or shortness of breath. CARDIOVASCULAR: Denies chest pain, palpitations, or dizziness. ABDOMEN: Positive for abdominal pain. Denies nausea, vomiting or diarrhea. Positive for constipation. MUSCULOSKELETAL: Denies bone pain. NEUROLOGIC: Denies weakness, headaches or dizziness. PHYSICAL EXAMINATION: VITAL SIGNS: Blood pressure 126/66, heart rate 62, respiratory rate 18, temperature 36.4, oxygen saturation 94% on room air. EYES: Scleral icterus. CHEST: Lungs clear bilaterally. CARDIOVASCULAR: Heart sounds regular rate and rhythm. No murmurs, gallops or rubs. GASTROINTESTINAL: No abdominal tenderness. No palpable hepatosplenomegaly. SKIN: Significant for jaundice. LABORATORY TESTING: CBC on 10/12/2021 significant for white cell count of 14,000, hemoglobin 13.8, hematocrit 41.5 with MCV of 91.8, and platelet count of 362,000. Chemistry significant for sodium of 134, potassium of 3.7, chloride 101, bicarbonate 23, anion gap 10, BUN of 23, creatinine 1.17, bilirubin 20.7, AST 183, ALT 95, alkaline phosphatase 404, total bilirubin of 5.8, albumin 2.6 and CEA of greater than 850. IMAGING STUDIES: As above. ASSESSMENT AND PLAN: A very pleasant 76-year-old female who presented with jaundice and laboratories revealed conjugated hyperbilirubinemia with total bilirubin of 20. CEA was significantly elevated at greater than 850 and preliminary pathology result is suggestive of gastrointestinal primary, likely colorectal. I discussed my thoughts with the patient and her son today. We talked about treatment options including supportive care/hospice given overall poor prognosis or systemic therapy with FOLFOX with or without Avastin. Following our discussion, patient indicated that she would like to attempt systemic therapy knowing the overall poor prognosis. We would therefore recommend MediPort placement in anticipation of discharge and to expedite treatment upon discharge. Thank you for this consult. Oncology will plan to see the patient upon discharge from hospital. Please feel free to call if you have any further questions. Job ID: [id number] [facility]
[2021-10-13 06:26] LABS: Basophils # (auto) 0.05 K/uL (0-0.2); Basophils % (auto) 0.3 %; Eosinophils # (auto) 0.22 K/uL (0-0.5); Eosinophils % (auto) 1.4 %; Hematocrit (blood only) 42.3 % (37-47); Hemoglobin 14.2 g/dL (12.0-16.0); INR 1.3 (0.9-1.1); Immature Granulocytes # (auto) 0.45 K/uL (0.00-0.02); Immature Granulocytes % (auto) 2.8 %; Lymphocytes # (auto) 1.75 K/uL (1.2-3.4); Lymphocytes % (auto) 10.9 %; Mean Corpuscular Hemoglobin 30.9 pg (25-34); Mean Corpuscular Hgb Conc 33.6 g/dL (32-36); Mean Corpuscular Volume 92.2 fL (80-100); Mean Platelet Volume 9.8 fL (7.4-10.4); Monocytes # (auto) 1.84 K/uL (0.11-0.59); Monocytes % (auto) 11.5 %; Neutrophils # (auto) 11.69 K/uL (1.4-6.5); Neutrophils % (auto) 73.1 %; Platelet Count 351 K/uL (130-400); Prothrombin Time 13.2 Seconds (9.0-12.0); RDW Coefficient of Variation 21.9 % (11.5-14.5); RDW Standard Deviation 73.4 fL (36.4-46.3); Red Blood Count 4.59 M/uL (4.2-5.4)
[2021-10-13 06:44] LABS: Albumin Globulin Ratio 0.8 (0.9-2); Albumin Level 2.7 gm/dl (3.4-5.0); BUN Creatinine Ratio 17.3 (10-20); Bilirubin,Total 22.4 mg/dl (0.2-1.0); Calcium 8.6 mg/dl (8.5-10.1); Creatinine Clr Calc Pharmacy 45.8 ml/min; Est GFR (African American) 59.6 ml/min; Est GFR (Non-African American) 51.4 ml/min; Globulin 3.3 gm/dl (2.5-4.0); Magnesium 2.2 mg/dl (1.7-2.4); Potassium 3.6 mmol/L (3.5-5.1)
[2021-10-13 06:51] LABS: Anisocytosis Present
--- NOTE | 2021-10-13 08:28 | Hospitalist Progress Note ---
Date of Service October 13, 2021 Assessment & Plan (1) Liver masses: Plan: Patient with history of breast ca s/p lumpectomy and chemotherapy x 8 cycles in 2009. Routine mammograms yearly up until last year noted Seen by PCP and sent for labs and instructed to go to ER for imaging/evaluation Given Vit K for INR>2, improved today MELD 29 CTAP on admission with liver infiltrated by numerous metastatic lesions concerning for primary vs metastatic disease (Of note, not nola disease on imaging, making met breast ca unlikely) MRCP without evidence for obstruction amenable to stenting AFP sent, CEA added given rectal thickening/esophageal thickening on imaging but non-specific -- PATIENT NEVER WITH PRIOR EGD/COLONOSCOPY IN PAST CEA LEVEL RETURNED SIGNIFICANTLY ELEVATED >850 Given dose lactulose as patient reported not really moving bowels, unable to add level to labs --> +bm, ORDERED 20 BID AND MONITOR BM LIVER BX 10/11 -- MONITOR. oncology spokewith Dr Merida, likely colorectal primary Heparin placed on hold Liver biopsy as performed by radiology--> Monitor pathology Discussed with Dr Gregg about patient -- rec CT chest for evaluated met disease CT chest with few scattered low suspicion solid pulm nodules measuring up to 4mm, no definite evidence for met pulm disease -No thoracic lymphadenopathy -Partially imaged pathologic upper abdominal lymphadenopathy with mild distal esophageal wall thickening and small amount ascites Oncology consulted this morning patient wants active treatment. rec port placement General Surgery consulted for port-placement Not to be done today, will arranged as outpatient for early next week to begin chemo GI on consult -- will follow along, rec INR Q12 but no bleeding and holding heparin for biopsy and held for possible consideration for port today. INR stable Palliative to follow peripheral for now for goals of care however patient has voiced multiple times she wants path back/consideration of options and told oncology wants treatment (2) FEI (acute liver failure): Plan: Secondary to likely invasive masses favoring cancer - MRCP as above INR 2.2, given Vit K --> INR currently 1.3 TB 21.5--> 19.4 --> 20.7 DB 13.6 AST 248 --> 183 ALT 116--> 95 ALP 571--> 404 Albumin 3.1-->2.7 Hepatitis panel pending -- non-reactive TRG 260 , cholesterol and other studies sent out given elevation in liver testing AFP pending CEA LEVEL RETURNED SIGNIFICANTLY ELEVATED >850 concerning for GI primary vs mets Monitor INR no bleeding will resume heparin this evening (3) Type 2 diabetes mellitus: Plan: Last a1c 7.7, holding metformin while inpatient BSG AC/HS, ISS while inpatient BSGs acceptable (4) Leukocytosis: Plan: WBC 17 afebrile on admission, but started empiric coverage with rocephin, ?UTI --> WBC decreased further. Remains afebrile Continue rocephin, monitor blood cultures -- did report fatigue, slightly improved. while denied urinary sx, urine cx with staph species -- can transition to PO tomorrow if bcx remain ngtd Procal was 1.01 on admission Lactic unable to be drawn (5) Breast cancer: Plan: HX of with chemotherapy 2009 - She does not recall being on any other agents such as tamoxifen or other but did admit to regular yearly mammograms no c-scope in past, see above (6) Hyperlipidemia: Plan: placed statin on hold given elevated liver enzymes (7) HTN (hypertension): Plan: on HCTZ 12.5mg, lisinopril 10mg, metoprolol 50mg daily HCTZ likely contributing to hyponatremia as well --- on hold --> Na 134 on AM labs Also holding lisinopril given Cr 1.32 on admit -- stable 1.17 BP stable 126/66 Monitor (8) Gastritis: Plan: reported, on protonix IV BID reports stable eating this morning (9) Fatigue: Plan: secondary to above monitor (10) Jaundice: Plan: about the same, 2nd to above Plan: continued inpatient stay general surgery consulted for port placement Admission and Anticipated Discharge Date Admission Date: October 10, 2021 Results & Data Results & Data ([facility]) Vital Signs (Past 12 Hours) Vital Signs Temp Pulse Resp BP Pulse Ox 10/13/21 07:06 36.6 C 64 16 105/61 95 10/12/21 23:24 36.7 C 57 L 16 110/62 95 PG Care Time/CCT Total # of Minutes Spent Total Time Spent with Patient: Total time spent is greater than 50% in coordination of care (as documented) at patient's floor/unit and/or counseling patient: Coding Diagnoses Liver masses R16.0 FEI (acute liver failure) K72.00 Type 2 diabetes mellitus E11.9 Leukocytosis D72.829 Breast cancer C50.919 Hyperlipidemia E78.5 HTN (hypertension) I10 Gastritis K29.70 Fatigue R53.83 Jaundice R17
[2021-10-13] MEDS: LACTULOSE SYRUP 20 GM/30 ML UDC PO SCH (08:29)
[2021-10-13] MEDS: PANTOprazole 40 MG in SYRINGE 0 ML IV SCH (08:29)
[2021-10-13] MEDS: METOPROLOL SUCC 50MG EXT REL TAB PO SCH (08:30)
[2021-10-13] MEDS: DOCUSATE SODIUM/SENNA 50/8.6MG TAB PO SCH (08:31)
--- NOTE | 2021-10-13 09:03 | Surgery Consultation ---
Date of Consultation October 13, 2021 Assessment & Plan (1) Leukocytosis: (2) Liver masses: (3) Fatigue: (4) Jaundice: 76 year-old female with history of breast cancer in 2009 presented to ED from PCP office with one month history of jaundice, weight loss and abdominal pain. Imaging showing multiple liver lesions with unknown primary but preliminary liver biopsy suggesting possible colorectal primary. CEA >850. Oncology has recommended placement of aport catheter as patient wants to proceed with systemic chemotherapy. Leukocytosis of 16K today, blood cultures negative for 48 hours. Plan: Will add patient on for left aport placement with Dr. Ronquillo on Saturday10/16/2021 as outpatient She will need to be NPO after midnight Saturday Will obtain consent day of surgery Dr. Ronquillo has seen and examined pt, agrees with above. Supervising Physician Co-Signing Physician Notes I have seen and examined the patient personally and agree with the above assessment and plan. In brief, she has multiple liver lesions of unknown primary but preliminary liver biopsy suggest possible colorectal. We will plan for port placement on Saturday, October 16, 2021. History of Present Illness Reason for Consultation: aport placement Requesting Physician: Kayla Richmond PA-C Attending Physician: Claudia Clark MD History of Present Illness Wen is a very pleasant 76-year-old female who presented to the ED on 10/10/2021 with jaundice and abdominal pain. The patients was referred to emergency department by her PCP due to significant jaundice and elevated bilirubin. CT abdomen and pelvis obtained by her PCP on 10/10/2021 revealed innumerable hypodense hepatic masses suggestive of metastatic disease, upper abdominal pathologic lymphadenopathy, small amount of ascites, apparent rectal wall thickening and small hiatal hernia. , MRCP was performed, which revealed enlarged liver infiltrated by numerous metastatic lesions with no significant intra or extrahepatic biliary ductal dilatation and upper abdominal and retroperitoneal lymphadenopathy as well as abdominal ascites. CT chest on 10/11/2021 revealed scattered low-suspicion solid pulmonary nodules measuring up to 4 mm, innumerable hepatic metastasis with possible portal venous gas, pathologic upper abdominal lymphadenopathy, abdominal ascites and mild distal esophageal wall thickening. The patient underwent ultrasound-guided liver bi opsy on 10/11/2021 with preliminary pathology suggestive of GI primary, likely colorectal. She was evaluated by oncologist who discussed systemic therapy in which patient elected to proceed. Our services consulted for aport placement. She has history of left breast cancer s/p lumpectomy in 2009. Had aport placed on right side. She is unsure if she had any lymph nodes removed on left side. Allergies Allergy/AdvReac Type Severity Reaction Status Date / Time cinnamon AdvReac Mild Heartburn Verified 10/13/21 16:09 Home Medications Medication Instructions Recorded Confirmed Type metformin 500 mg tablet 500 mg PO BID #180 tab 04/18/21 10/13/21 Rx lactulose 20 gram/30 mL oral 20 g PO BID PRN #1200 ml 10/13/21 10/13/21 Rx solution pantoprazole 40 mg tablet,delayed 40 mg PO BID 14 Days #28 tab 10/13/21 Rx release (Protonix) metoprolol succinate 50 mg 50 mg PO QAM #30 tab 10/14/21 Rx tablet,extended release 24 hr Patient History Medical History HALF-WAY (acute liver failure) Admitted 10/10/21 to 10/13/21 Breast cancer Dx'ed 2009 initially- s/p left lumpectomy and chemo and radiation Gastritis HTN (hypertension) Hyperlipidemia Liver masses Recently dx'ed- admitted to [facility] 10/10/21 to 10/13/21 Concerning for primary vs metastatic disease - patient would like active treatment- heme/onc recommending port placement Osteoarthritis Type 2 diabetes mellitus Surgical History History of appendectomy History of section History of colonoscopy History of hysterectomy total hysterectomy with BSO History of lumpectomy of left breast History of removal of Port-a-Cath "years ago"--removed from right side after chemo completed History of tooth extraction all teeth removed except 2 History of vascular access device hx of aport in right chest wall for chemo Status post breast biopsy left--malignant Family History Sister Diabetes Other No family history of adverse response to anesthesia Social History Smoking Status: Never smoker Second Hand Exposure: No; Hx Alcohol Use: No (quit at [place] 2021-- prior to quitting drank about a 6 pack of beer/day) Hx Substance Use: No Preferred Language: Polish Communication Ability: Effective Hearing Ability: Normal Manager Supplier Required: No Beliefs That Will Affect Care: None marital status: Current Living Situation: Family Current Living Situation Comment: lives with son current occupational status: retired How many Children do You have: 6 Feels Safe at Home: Yes Childhood Exposure to Second-Hand Smoke: Yes caffeine: Yes (coffee) Dental Care, Regularly: No Physical Activity Frequency: Other Physical Activity Frequency Comment: walking throughout daily Seatbelt Use: always Sunscreen Use: Yes Assistive Devices: Cane and Glasses Physical Exam Constitutional: cooperative; no acute distress and not ill appearing Neck: normal visual inspection and trachea midline Respiratory: normal respiratory effort; no respiratory distress, no labored breathing and no retractions Skin: + jaundice (significant jaudice) Psychiatric: Orientation: alert and oriented x 3 Results & Data ([facility]) Vital Signs (Past 12 Hours) Vital Signs Temp Pulse Resp BP Pulse Ox 10/13/21 07:06 36.6 C 64 16 105/61 95 10/12/21 23:24 36.7 C 57 L 16 110/62 95 Laboratory Results 10/13/21 10/13/21 10/13/21 Range/Units 08:07 05:37 05:37 WBC (4.8-10.8) K/uL RBC (4.2-5.4) M/uL Hgb (12.0-16.0) g/dL Hct (37-47) % MCV (80-100) fL MCH (25-34) pg MCHC (32-36) g/dL RDW Std Deviation (36.4-46.3) fL RDW Coeff of Frida (11.5-14.5) % Plt Count (130-400) K/uL MPV (7.4-10.4) fL Immature Gran % (Auto) % Neut % (Auto) % Lymph % (Auto) % [place] % (Auto) % Eos % (Auto) % Baso % (Auto) % Neut # (Auto) (1.4-6.5) K/uL Lymph # (Auto) (1.2-3.4) K/uL [place] # (Auto) (0.11-0.59) K/uL Eos # (Auto) (0-0.5) K/uL Baso # (Auto) (0-0.2) K/uL Immature Gran # (Auto) (0.00-0.02) K/uL RBC Morphology Anisocytosis PT 13.2 H (9.0-12.0) Seconds INR 1.3 H (0.9-1.1) Sodium 134 L (136-145) mmol/L Potassium 3.6 (3.5-5.1) mmol/L Chloride 101 (98-107) mmol/L Carbon Dioxide 25 (21-32) mmol/L Anion Gap 8 (3-11) BUN 18 (6-23) mg/dl Creatinine 1.04 (0.6-1.2) mg/dl Est Cr Clr Drug Dosing 45.8 ml/min Est GFR ( Amer) 59.6 ml/min Est GFR (Non-Af Amer) 51.4 ml/min BUN/Creatinine Ratio 17.3 (10-20) Glucose 112 H (70-99(Fasting)) mg/dl POC Glucose 106 H (70-99) mg/dl Calcium 8.6 (8.5-10.1) mg/dl Magnesium 2.2 (1.7-2.4) mg/dl Total Bilirubin 22.4 H (0.2-1.0) mg/dl AST 174 H (13-39) U/L ALT 93 H (7-52) U/L Alkaline Phosphatase 442 H (34-104) U/L Ammonia Total Protein 6.0 (6.0-8.3) gm/dl Albumin 2.7 L (3.4-5.0) gm/dl Globulin 3.3 (2.5-4.0) gm/dl Albumin/Globulin Ratio 0.8 L (0.9-2) Tumor Marker AFP ng/mL Carcinoembryonic Ag (0-2.5) ng/ml Hepatitis A IgM Ab (NON-REACTIVE) Hep Bs Antigen (NON-REACTIVE) Hep Bs Ag Confirmation Hep B Core IgM Ab (NON-REACTIVE) Hepatitis C Ab (EIA) (NON-REACTIVE) Hep C Ab Signal/Cutoff (<1.00) Miscellaneous Test 10/13/21 10/12/21 10/12/21 Range/Units 05:37 20:31 20:29 WBC 16.00 H (4.8-10.8) K/uL RBC 4.59 (4.2-5.4) M/uL Hgb 14.2 (12.0-16.0) g/dL Hct 42.3 (37-47) % MCV 92.2 (80-100) fL MCH 30.9 (25-34) pg MCHC 33.6 (32-36) g/dL RDW Std Deviation 73.4 H (36.4-46.3) fL RDW Coeff of Frida 21.9 H (11.5-14.5) % Plt Count 351 (130-400) K/uL MPV 9.8 (7.4-10.4) fL Immature Gran % (Auto) 2.8 % Neut % (Auto) 73.1 % Lymph % (Auto) 10.9 % [place] % (Auto) 11.5 % Eos % (Auto) 1.4 % Baso % (Auto) 0.3 % Neut # (Auto) 11.69 H (1.4-6.5) K/uL Lymph # (Auto) 1.75 (1.2-3.4) K/uL [place] # (Auto) 1.84 H (0.11-0.59) K/uL Eos # (Auto) 0.22 (0-0.5) K/uL Baso # (Auto) 0.05 (0-0.2) K/uL Immature Gran # (Auto) 0.45 H (0.00-0.02) K/uL RBC Morphology Anisocytosis Present PT (9.0-12.0) Seconds INR (0.9-1.1) Sodium (136-145) mmol/L Potassium (3.5-5.1) mmol/L Chloride (98-107) mmol/L Carbon Dioxide (21-32) mmol/L Anion Gap (3-11) BUN (6-23) mg/dl Creatinine (0.6-1.2) mg/dl Est Cr Clr Drug Dosing ml/min Est GFR ( Amer) ml/min Est GFR (Non-Af Amer) ml/min BUN/Creatinine Ratio (10-20) Glucose (70-99(Fasting)) mg/dl POC Glucose 145 H 471 H* (70-99) mg/dl Calcium (8.5-10.1) mg/dl Magnesium (1.7-2.4) mg/dl Total Bilirubin (0.2-1.0) mg/dl AST (13-39) U/L ALT (7-52) U/L Alkaline Phosphatase (34-104) U/L Ammonia Total Protein (6.0-8.3) gm/dl Albumin (3.4-5.0) gm/dl Globulin (2.5-4.0) gm/dl Albumin/Globulin Ratio (0.9-2) Tumor Marker AFP ng/mL Carcinoembryonic Ag (0-2.5) ng/ml Hepatitis A IgM Ab (NON-REACTIVE) Hep Bs Antigen (NON-REACTIVE) Hep Bs Ag Confirmation Hep B Core IgM Ab (NON-REACTIVE) Hepatitis C Ab (EIA) (NON-REACTIVE) Hep C Ab Signal/Cutoff (<1.00) Miscellaneous Test 10/12/21 10/12/21 10/12/21 Range/Units 17:13 12:04 11:46 WBC (4.8-10.8) K/uL RBC (4.2-5.4) M/uL Hgb (12.0-16.0) g/dL Hct (37-47) % MCV (80-100) fL MCH (25-34) pg MCHC (32-36) g/dL RDW Std Deviation (36.4-46.3) fL RDW Coeff of Frida (11.5-14.5) % Plt Count (130-400) K/uL MPV (7.4-10.4) fL Immature Gran % (Auto) % Neut % (Auto) % Lymph % (Auto) % [place] % (Auto) % Eos % (Auto) % Baso % (Auto) % Neut # (Auto) (1.4-6.5) K/uL Lymph # (Auto) (1.2-3.4) K/uL [place] # (Auto) (0.11-0.59) K/uL Eos # (Auto) (0-0.5) K/uL Baso # (Auto) (0-0.2) K/uL Immature Gran # (Auto) (0.00-0.02) K/uL RBC Morphology Anisocytosis PT (9.0-12.0) Seconds INR (0.9-1.1) Sodium (136-145) mmol/L Potassium (3.5-5.1) mmol/L Chloride (98-107) mmol/L Carbon Dioxide (21-32) mmol/L Anion Gap (3-11) BUN (6-23) mg/dl Creatinine (0.6-1.2) mg/dl Est Cr Clr Drug Dosing ml/min Est GFR ( Amer) ml/min Est GFR (Non-Af Amer) ml/min BUN/Creatinine Ratio (10-20) Glucose (70-99(Fasting)) mg/dl POC Glucose 134 H 149 H (70-99) mg/dl Calcium (8.5-10.1) mg/dl Magnesium (1.7-2.4) mg/dl Total Bilirubin (0.2-1.0) mg/dl AST (13-39) U/L ALT (7-52) U/L Alkaline Phosphatase (34-104) U/L Ammonia Total Protein (6.0-8.3) gm/dl Albumin (3.4-5.0) gm/dl Globulin (2.5-4.0) gm/dl Albumin/Globulin Ratio (0.9-2) Tumor Marker AFP ng/mL Carcinoembryonic Ag (0-2.5) ng/ml Hepatitis A IgM Ab (NON-REACTIVE) Hep Bs Antigen (NON-REACTIVE) Hep Bs Ag Confirmation Hep B Core IgM Ab (NON-REACTIVE) Hepatitis C Ab (EIA) (NON-REACTIVE) Hep C Ab Signal/Cutoff (<1.00) Miscellaneous Test REPORT 10/12/21 10/12/21 10/12/21 Range/Units 10:27 10:27 10:27 WBC (4.8-10.8) K/uL RBC (4.2-5.4) M/uL Hgb (12.0-16.0) g/dL Hct (37-47) % MCV (80-100) fL MCH (25-34) pg MCHC (32-36) g/dL RDW Std Deviation (36.4-46.3) fL RDW Coeff of Frida (11.5-14.5) % Plt Count (130-400) K/uL MPV (7.4-10.4) fL Immature Gran % (Auto) % Neut % (Auto) % Lymph % (Auto) % [place] % (Auto) % Eos % (Auto) % Baso % (Auto) % Neut # (Auto) (1.4-6.5) K/uL Lymph # (Auto) (1.2-3.4) K/uL [place] # (Auto) (0.11-0.59) K/uL Eos # (Auto) (0-0.5) K/uL Baso # (Auto) (0-0.2) K/uL Immature Gran # (Auto) (0.00-0.02) K/uL RBC Morphology Anisocytosis PT 13.2 H (9.0-12.0) Seconds INR 1.3 H (0.9-1.1) Sodium (136-145) mmol/L Potassium (3.5-5.1) mmol/L Chloride (98-107) mmol/L Carbon Dioxide (21-32) mmol/L Anion Gap (3-11) BUN (6-23) mg/dl Creatinine (0.6-1.2) mg/dl Est Cr Clr Drug Dosing ml/min Est GFR ( Amer) ml/min Est GFR (Non-Af Amer) ml/min BUN/Creatinine Ratio (10-20) Glucose (70-99(Fasting)) mg/dl POC Glucose (70-99) mg/dl Calcium (8.5-10.1) mg/dl Magnesium (1.7-2.4) mg/dl Total Bilirubin (0.2-1.0) mg/dl AST (13-39) U/L ALT (7-52) U/L Alkaline Phosphatase (34-104) U/L Ammonia Cancelled Total Protein (6.0-8.3) gm/dl Albumin (3.4-5.0) gm/dl Globulin (2.5-4.0) gm/dl Albumin/Globulin Ratio (0.9-2) Tumor Marker AFP ng/mL Carcinoembryonic Ag > 850.0 H (0-2.5) ng/ml Hepatitis A IgM Ab (NON-REACTIVE) Hep Bs Antigen (NON-REACTIVE) Hep Bs Ag Confirmation Hep B Core IgM Ab (NON-REACTIVE) Hepatitis C Ab (EIA) (NON-REACTIVE) Hep C Ab Signal/Cutoff (<1.00) Miscellaneous Test 10/12/21 10/12/21 10/10/21 Range/Units 10:27 10:27 21:18 WBC 14.80 H (4.8-10.8) K/uL RBC 4.52 (4.2-5.4) M/uL Hgb 13.8 (12.0-16.0) g/dL Hct 41.5 (37-47) % MCV 91.8 (80-100) fL MCH 30.5 (25-34) pg MCHC 33.3 (32-36) g/dL RDW Std Deviation 74.3 H (36.4-46.3) fL RDW Coeff of Frida 22.0 H (11.5-14.5) % Plt Count 362 (130-400) K/uL MPV 9.6 (7.4-10.4) fL Immature Gran % (Auto) 2.4 % Neut % (Auto) 77.9 % Lymph % (Auto) 8.4 % [place] % (Auto) 10.5 % Eos % (Auto) 0.5 % Baso % (Auto) 0.3 % Neut # (Auto) 11.52 H (1.4-6.5) K/uL Lymph # (Auto) 1.25 (1.2-3.4) K/uL [place] # (Auto) 1.56 H (0.11-0.59) K/uL Eos # (Auto) 0.08 (0-0.5) K/uL Baso # (Auto) 0.04 (0-0.2) K/uL Immature Gran # (Auto) 0.35 H (0.00-0.02) K/uL RBC Morphology Unremarkable Anisocytosis PT (9.0-12.0) Seconds INR (0.9-1.1) Sodium 134 L (136-145) mmol/L Potassium 3.7 (3.5-5.1) mmol/L Chloride 101 (98-107) mmol/L Carbon Dioxide 23 (21-32) mmol/L Anion Gap 10 (3-11) BUN 23 (6-23) mg/dl Creatinine 1.17 (0.6-1.2) mg/dl Est Cr Clr Drug Dosing 40.7 ml/min Est GFR ( Amer) 51.7 ml/min Est GFR (Non-Af Amer) 44.6 ml/min BUN/Creatinine Ratio 19.7 (10-20) Glucose 168 H (70-99(Fasting)) mg/dl POC Glucose (70-99) mg/dl Calcium 8.6 (8.5-10.1) mg/dl Magnesium 2.3 (1.7-2.4) mg/dl Total Bilirubin 20.7 H (0.2-1.0) mg/dl AST 183 H (13-39) U/L ALT 95 H (7-52) U/L Alkaline Phosphatase 404 H (34-104) U/L Ammonia Total Protein 5.8 L (6.0-8.3) gm/dl Albumin 2.6 L (3.4-5.0) gm/dl Globulin 3.2 (2.5-4.0) gm/dl Albumin/Globulin Ratio 0.8 L (0.9-2) Tumor Marker AFP ng/mL Carcinoembryonic Ag (0-2.5) ng/ml Hepatitis A IgM Ab (NON-REACTIVE) Hep Bs Antigen (NON-REACTIVE) Hep Bs Ag Confirmation Hep B Core IgM Ab (NON-REACTIVE) Hepatitis C Ab (EIA) (NON-REACTIVE) Hep C Ab Signal/Cutoff (<1.00) Miscellaneous Test Cancelled 10/10/21 Range/Units 19:10 WBC (4.8-10.8) K/uL RBC (4.2-5.4) M/uL Hgb (12.0-16.0) g/dL Hct (37-47) % MCV (80-100) fL MCH (25-34) pg MCHC (32-36) g/dL RDW Std Deviation (36.4-46.3) fL RDW Coeff of Frida (11.5-14.5) % Plt Count (130-400) K/uL MPV (7.4-10.4) fL Immature Gran % (Auto) % Neut % (Auto) % Lymph % (Auto) % [place] % (Auto) % Eos % (Auto) % Baso % (Auto) % Neut # (Auto) (1.4-6.5) K/uL Lymph # (Auto) (1.2-3.4) K/uL [place] # (Auto) (0.11-0.59) K/uL Eos # (Auto) (0-0.5) K/uL Baso # (Auto) (0-0.2) K/uL Immature Gran # (Auto) (0.00-0.02) K/uL RBC Morphology Anisocytosis PT (9.0-12.0) Seconds INR (0.9-1.1) Sodium (136-145) mmol/L Potassium (3.5-5.1) mmol/L Chloride (98-107) mmol/L Carbon Dioxide (21-32) mmol/L Anion Gap (3-11) BUN (6-23) mg/dl Creatinine (0.6-1.2) mg/dl Est Cr Clr Drug Dosing ml/min Est GFR ( Amer) ml/min Est GFR (Non-Af Amer) ml/min BUN/Creatinine Ratio (10-20) Glucose (70-99(Fasting)) mg/dl POC Glucose (70-99) mg/dl Calcium (8.5-10.1) mg/dl Magnesium (1.7-2.4) mg/dl Total Bilirubin (0.2-1.0) mg/dl AST (13-39) U/L ALT (7-52) U/L Alkaline Phosphatase (34-104) U/L Ammonia Total Protein (6.0-8.3) gm/dl Albumin (3.4-5.0) gm/dl Globulin (2.5-4.0) gm/dl Albumin/Globulin Ratio (0.9-2) Tumor Marker AFP 4.3 ng/mL Carcinoembryonic Ag (0-2.5) ng/ml Hepatitis A IgM Ab NON-REACTIVE (NON-REACTIVE) Hep Bs Antigen NON-REACTIVE (NON-REACTIVE) Hep Bs Ag Confirmation TNP Hep B Core IgM Ab NON-REACTIVE (NON-REACTIVE) Hepatitis C Ab (EIA) NON-REACTIVE (NON-REACTIVE) Hep C Ab Signal/Cutoff 0.03 (<1.00) Miscellaneous Test
--- NOTE | 2021-10-13 10:22 | Discharge Summary ---
Date of Service October 13, 2021 Admission HPI Per Admitting Provider 76 YOF with medical history of: Breast Cancer (2010-Grade I infiltrating ductal carcinoma-treated with lumpectomy and 8 cycles of chemotherapy) PET scan 2011 negative for mets, HTN, DMII, Appendectomy, hysterectomy. Patient was referred to the EMD today from her PCP for concerns of Jaundice, abdominal. Over the past month or two the patient endorses increase in abdominal pain right mid abdomen. This progressed to her appearing Jaundiced to her PCP- she had labs drawn and CT scan of abdomen and pelvis performed. Unfortunately this CT scan revealed innumerable hypodense hepatic lesions. Patient reports that she has had increase in fatigue and just wanting to sleep over the past 2 weeks. She also endorses constipation. She is accompanied by her son. Her WBC count was elevated to 17. Patient states that Currently undergoing infectious workup with blood culture, lactate, procalcitonin. She is afebrile and denies any other illness. Patient will be admitted, empirically placed on Rocephin, will check I NR/PT, Ammonia, hepatitis panel and AFP. Patient was informed of these findings and need to gather more information regarding her liver masses. She is amendable to further workup and screenings to include biopsy. Will obtain MRCP. She reports stopping drinking 2 years ago, and never smoked COVID test on admission is: NEGATIVE Discharge Exam General: WD elderly female resting quietly in bed upon entry, NAD, +JAUNDICE, reports fatigue but improved HEENT: icteric sclera, pupils equal and reactive, trachea midline without deviation Resp: CTAB, diminished in bases, on room air, no wheezing/crackles CV: RRR, no m/r/g, no calf tenderness GI:+ BS, +hepatomegaly, non-tender to palpation, no rebound/guarding : no smith Psych: alert, oriented to person/place/time, cooperative Neuro: moves all extremities, follow commands, no facial droop, CN intact grossly, no asterixis noted or tremor Discharge Data Allergies Allergy/AdvReac Type Severity Reaction Status Date / Time cinnamon AdvReac Verified 10/11/21 16:20 Consultations 10/11/21 08:34 Consult Gastroenterology Routine 10/11/21 11:41 Consult Palliative Care Routine 10/11/21 17:55 Consult Oncology Routine 10/12/21 16:37 Consult General Surgery Routine Procedures Performed Operation Date: 10/16/21 14:15 <No data on this case meets the specified criteria> Ordered Studies 10/10/21 19:47 MR MRCP Stat 10/11/21 11:44 CT chest diagnostic w con Routine 10/11/21 11:56 US biopsy liver Routine 10/11/21 13:56 US FNA w/img 1st lesion Routine Hospital Course (1) Liver masses: Patient with history of breast ca s/p lumpectomy and chemotherapy x 8 cycles in 2009. Routine mammograms yearly up until last year noted Seen by PCP and sent for labs and instructed to go to ER for imaging/evaluation Given Vit K for INR>2, improved today MELD 29 CTAP on admission with liver infiltrated by numerous metastatic lesions concerning for primary vs metastatic disease (Of note, not nola disease on imaging, making met breast ca unlikely) MRCP without evidence for obstruction amenable to stenting AFP sent, CEA added given rectal thickening/esophageal thickening on imaging but non-specific -- PATIENT NEVER WITH PRIOR EGD/COLONOSCOPY IN PAST C-scope 10 years ago, never had EGD Given dose lactulose as patient reported not really moving bowels, unable to add level to labs --> +bm, ORDERED 20 BID AND MONITOR BM LIVER BX 10/11 -- MONITOR Heparin placed on hold Liver biopsy as performed by radiology--> Monitor pathology Discussed with Dr Gregg about patient -- rec CT chest for evaluated met disease CT chest with few scattered low suspicion solid pulm nodules measuring up to 4mm, no definite evidence for met pulm disease -No thoracic lymphadenopathy -Partially imaged pathologic upper abdominal lymphadenopathy with mild distal esophageal wall thickening and small amount ascites CEA LEVEL RETURNED SIGNIFICANTLY ELEVATED >850 Oncology consulted this morning patient wants active treatment. rec port placement General Surgery consulted GI on consult -- will follow along, rec INR Q12 but no bleeding and holding heparin for biopsy but will monitor in AM Resume Heparin SQ Palliative to follow peripheral for now for goals of care however patient has voiced multiple times she wants path back/consideration of options and told oncology wants treatment (2) SENIOR L[facility]ING (acute liver failure): Secondary to likely invasive masses favoring cancer - MRCP as above INR 2.2, given Vit K --> INR currently 1.3 TB 21.5--> 19.4 --> 20.7 DB 13.6 AST 248 --> 183 ALT 116--> 95 ALP 571--> 404 Albumin 3.1-->2.7 Hepatitis panel pending -- non-reactive TRG 260 , cholesterol and other studies sent out given elevation in liver testing AFP pending CEA LEVEL RETURNED SIGNIFICANTLY ELEVATED >850 concerning for GI primary Monitor INR no bleeding will resume heparin this evening (3) Type 2 diabetes mellitus: Last a1c 7.7, holding metformin while inpatient BSG AC/HS, ISS while inpatient BSGs acceptable (4) Leukocytosis: WBC 17 afebrile on admission, but started empiric coverage with rocephin, ?UTI --> WBC decreased further. Remains afebrile Continue rocephin, monitor blood cultures -- did report fatigue, slightly improved. while denied urinary sx, urine cx with staph species -- can transition to PO tomorrow if bcx remain ngtd Procal was 1.01 on admission Lactic unable to be drawn (5) Breast cancer: HX of with chemotherapy 2009 - She does not recall being on any other agents such as tamoxifen or other but did admit to regular yearly mammograms no c-scope in past, see above (6) Hyperlipidemia: placed statin on hold given elevated liver enzymes (7) HTN (hypertension): on HCTZ 12.5mg, lisinopril 10mg, metoprolol 50mg daily HCTZ likely contributing to hyponatremia as well --- on hold --> Na 134 on AM labs Also holding lisinopril given Cr 1.32 on admit -- stable 1.17 BP stable 126/66 Monitor (8) Gastritis: reported, on protonix IV BID reports stable eating this morning (9) Fatigue: secondary to above monitor (10) Jaundice: about the same, 2nd to above continued inpatient stay general surgery consulted for port placement Discharge Plan Discharge Items Reason For Visit: ABDOMINAL PAIN, LIVER MASSES Follow-up/Referrals: Moreno Ac DO [Primary Care Provider] - [employer] Provider Instructions: General Surgery Instruction: We have scheduled you for placement of an aport catheter for chemotherapy as an outpatient procedure this coming Saturday10/16/[address] Ronquillo. You will have to call the hospital at [phone] on Saturday10/15/2021 between 2-7 pm to get your arrival time for your procedure on Saturday. Please do not drink or eat anything after midnight on Saturday for your procedure on Saturday. Medications and DC Order Prescriptions: No Action pravastatin 20 mg tablet 20 mg PO DAILY Qty: 90 RF: 3 lisinopril 10 mg tablet 10 mg PO DAILY Qty: 90 RF: 3 metformin 500 mg tablet 500 mg PO BID Qty: 180 RF: 3 metoprolol succinate 50 mg tablet extended release 24 hr 50 mg PO DAILY Qty: 90 RF: 3 hydrochlorothiazide 12.5 mg tablet 12.5 mg PO DAILY Qty: 30 RF: 2 naproxen sodium 220 mg Tablet 220 mg PO DIRECTED PRN (Reason: Pain) RF: 0 Admission Data Admit Date/Time: 10/10/21 18:56 Attending Provider: Claudia Clark Admit Provider: Edis Mathews Primary Care Provider: Moreno Ac Other Providers: Sergo Wei ; Gail Campbell ; Tori Gregg ; Sterling Ronquillo Coding Diagnoses Liver masses R16.0 SENIOR LIVING (acute liver failure) K72.00 Type 2 diabetes mellitus E11.9 Leukocytosis D72.829 Breast cancer C50.919 Hyperlipidemia E78.5 HTN (hypertension) I10 Gastritis K29.70 Fatigue R53.83 Jaundice R17
--- NOTE | 2021-10-13 13:18 | Discharge Summary ---
Date of Service October 13, 2021 Admission HPI Per Admitting Provider Primary Care Provider: Moreno Ac, DO 76 YOF with medical history of: Breast Cancer (2010-Grade I infiltrating ductal carcinoma-treated with lumpectomy and 8 cycles of chemotherapy) PET scan 2011 negative for mets, HTN, DMII, Appendectomy, hysterectomy. Patient was referred to the EMD today from her PCP for concerns of Jaundice, abdominal. Over the past month or two the patient endorses increase in abdominal pain right mid abdomen. This progressed to her appearing Jaundiced to her PCP- she had labs drawn and CT scan of abdomen and pelvis performed. Unfortunately this CT scan revealed innumerable hypodense hepatic lesions. Patient reports that she has had increase in fatigue and just wanting to sleep over the past 2 weeks. She also endorses constipation. She is accompanied by her son. Her WBC count was elevated to 17. Patient states that Currently undergoing infectious workup with blood culture, lactate, procalcitonin. She is afebrile and denies any other illness. Patient will be admitted, empirically placed on Rocephin, will check INR/PT, Ammonia, hepatitis panel and AFP. Patient was informed of these findings and need to gather more information regarding her liver masses. She is amendable to further workup and screenings to include biopsy. Will obtain MRCP. She reports stopping drinking 2 years ago, and never smoked COVID test on admission is: NEGATIVE Admission Exam Per Admitting Provider PHYSICAL EXAM: General: awake, alert, fatigued Head: Normocephalic, atraumatic ENT: jaundiced sclera, PERRL, EOMI, no pharyngeal exudate, mucous membranes moist Neuro: AAO x 3, speech clear and appropriate, strength intact bilaterally 5/5, sensation intact and equal all extremities and dermatomes, no pronator drift, no asterixis Chest: equal rise and fall of the chest, no accessory muscle use, no heaves or thrills, Clear to auscultation, on room air, Cardiac: Regular rate and rhythm, telemetry reviewed, skin warm dry, cap refill <3 seconds, peripheral pulses +2 no JVD, no murmur, no JVD, no edema GI: enlarged liver borders, pain along the liver border with palpation, NABS x 4 quadrants, soft, no rebound, guarding or tenderness : Spontaneously voiding, no pain, no CVA tenderness, Psych: Patient not very verbal but did start being involved more as we discussed her findings. Skin: Jaundice with bruising to blood sticks Principal Diagnosis New Liver Masses, Colorectal Cancer Discharge Exam General: WD elderly female resting quietly in bed upon entry, NAD, +JAUNDICE, reports fatigue but improved HEENT: icteric sclera, pupils equal and reactive, trachea midline without deviation Resp: CTAB, diminished in bases, on room air, no wheezing/crackles CV: RRR, no m/r/g, no calf tenderness GI:+ BS, +hepatomegaly, non-tender to palpation, no rebound/guarding : no smith Psych: alert, oriented to person/place/time, cooperative Neuro: moves all extremities, follow commands, no facial droop, CN intact grossly, no asterixis noted or tremor Discharge Data Allergies Allergy/AdvReac Type Severity Reaction Status Date / Time cinnamon AdvReac Mild Heartburn Verified 10/13/21 16:09 Consultations 10/11/21 08:34 Consult Gastroenterology Routine 10/11/21 11:41 Consult Palliative Care Routine 10/11/21 17:55 Consult Oncology Routine 10/12/21 16:37 Consult General Surgery Routine Procedures Performed Operation Date: 10/16/21 14:15 <No data on this case meets the specified criteria> Ordered Studies Chest X-Ray 10/10/21 16:33 XR chest 1V portable CLINICAL HISTORY: Leukocytosis. COMPARISON STUDY: No previous studies for comparison. FINDINGS: There is mild elevation of the right hemidiaphragm. Lungs are clear. There is no pneumothorax or pleural effusion. Cardiac size is normal. Mediastinal contours are normal. There is no evidence for pulmonary edema. Postoperative findings within the left breast are present. An oval shaped peripherally calcified density projecting over the left upper lung is benign. IMPRESSION: No acute cardiopulmonary findings. ACT 112: Negative or not required by law. Electronically signed by: Galen Arrieta M.D. 10/10/2021 5:43 PM Cholangiopancreatography MRI 10/10/21 19:47 MRCP CLINICAL HISTORY: Elevated bilirubin. Jaundice. Liver metastases. COMPARISON STUDY: Abdominal CT dated 10/10/2021. TECHNIQUE: Abdominal MRCP is performed utilizing various T2-weighted sequences in the axial and coronal planes. IV contrast was not administered for this examination. 3-D reformats are created and assessed. The examination is degraded by motion artifact as well as by the presence of abdominal ascites. FINDINGS: The gallbladder is completely contracted and not well evaluated. No obvious gallstones are identified. There is no intra or extrahepatic biliary ductal dilatation. The common bile duct is ectatic and measures up to 5 mm in diameter. No intraluminal filling defects are clearly identified to suggest choledocholithiasis. The pancreatic duct is normal in caliber. There is distortion of the intrahepatic bile ducts, likely related to mass effect from hepatic metastases. The liver is enlarged, measuring 21 cm in length. The liver is infiltrated by numerous mass lesions typical for metastatic disease. There is upper abdominal lymphadenopathy. Upper abdominal ascites is noted. The unenhanced spleen, pancreas, adrenal glands, and kidneys are grossly unremarkable but not well assessed. The abdominal aorta is normal in caliber. There are also mildly enlarged upper retroperitoneal lymph nodes. No destructive bony lesion is clearly identified. There is no pleural effusion. IMPRESSION: 1. The liver is enlarged and infiltrated by numerous metastatic lesions. 2. The gallbladder is completely contracted and not well evaluated. 3. There is no significant intra or extrahepatic biliary ductal dilatation. 4. There is significant distortion of the intra and extrahepatic bile ducts, likely related to mass effect from metastatic lesions. 5. There is upper abdominal and retroperitoneal lymphadenopathy as well as ab dominal ascites. Dictated: 10/11/2021 7:18 AM Transcribed: 10/11/2021 7:44 AM Kristin [id number] [facility] Electronically signed by: Matthew Anthony M.D. 10/11/2021 8:[address] 10/11/21 11:[address] WITH CONTRAST CT DOSE: 281.02 mGycm HISTORY: Acute shortness of breath. Hepatic metastatic disease. liver mets, eval for met disease TECHNIQUE: Multiaxial CT images of the chest were performed following the IV administration of 94 cc of Optiray. A dose lowering technique was utilized adhering to the principles of ALARA. COMPARISON: CT abdomen and pelvis 10/10/2021. FINDINGS: Subcentimeter hypodense right-sided thyroid nodule. 7 mm right tracheoesophageal recess lymph node. No pathologically enlarged lymph nodes of the chest identified. Surgical clips are noted within the left axilla. Biopsy clip is in the superior aspect of the left central breast. The heart is upper limits of normal in size. Mild coronary artery calcifications. Atherosclerosis of the aorta without aneurysm. The opacified pulmonary artery is unremarkable. There is no pneumothorax, pleural effusion or overt pulmonary edema. Consolidation of the right middle lobe with traction bronchiectasis appears chronic. Mild subpleural reticulation of the anterior left upper lobe and lingula suggest scarring. 3 mm nodule of the left upper lobe on image 66. There are a few scattered additional low suspicion solid nodules measuring up to 4 mm within the right upper lobe on image 73. The central airways appear patent. Mild linear scarring/atelectasis of the right upper lobe. There is noted within the subcutaneous tissues of the anterior abdominal wall. Trace actually luminal air is also noted within the peritoneal space of the upper abdomen on image 227 of series 4 which is likely postprocedural. Minimal air within the liver is again noted with innumerable hepatic metastasis. Small volume ascites with nonspecific distal esophageal wall thickening. Upper abdomi nal lymphadenopathy is partially imaged. No acute fracture or definite osseous metastatic disease. Degenerative changes of the shoulders and spine. IMPRESSION: 1. There are a few scattered low suspicion solid pulmonary nodules measuring up to 4 mm. No definite evidence of pulmonary metastatic disease. 2. No thoracic lymphadenopathy. 3. Innumerable hepatic metastasis redemonstrated with possible portal venous gas. 4. Partially imaged pathologic upper abdominal lymphadenopathy. 5. Abdominal ascites. 6. Mild distal esophageal wall thickening. ACT 112: Negative or not required by law. Electronically signed by: Eric Khanna M.D. 10/11/2021 2:36 PM Liver Biopsy Ultrasound 10/11/21 11:56 ULTRASOUND-GUIDED CORE BIOPSY AND FINE NEEDLE ASPIRATION OF LEFT HEPATIC LOBE CLINICAL HISTORY: numerous liver lesions, concerns for metastatic vs primary COMPARISON STUDY: CT of the abdomen and pelvis and MRCP October 10, 2021. PROCEDURE: The procedure, risks and benefits were discussed with the patient and informed written consent was obtained. The procedure was performed by Dr. Arrieta following a timeout. Sonography of the liver demonstrated het erogeneous appearance of the liver with nodularity of the liver surface. The lesions shown on prior CT and MRI were not well visualized by sonography however random biopsy within the left hepatic lobe was performed given extensive infiltrative appearance on those exams. Skin was prepped and draped in sterile fashion and local anesthesia was achieved with 1% lidocaine. Under direct ultrasound guidance, 2 22-gauge fine needle aspirations were performed utilizing Jose needles. Malignant cells were noted. Therefore, 18-gauge 2 cm core biopsy within the left hepatic lobe was performed. Samples were deemed preliminarily adequate by pathology. The patient tolerated the procedure well and no immediate complications were evident. IMPRESSION: Successful ultrasound guided 18-gauge core biopsy and fine-needle aspiration of the left hepatic lobe. Discrete lesions on prior CT an MRI were not well visualized by sonography however random biopsy within the left hepatic lobe was performed given extensive infiltrative appearance on those studies. ACT 112: Negative or not required by law. Electronically signed by: Galen Arrieta M.D. 10/11/2021 2:09 PM Aspiration 10/11/21 13:56 ULTRASOUND-GUIDED CORE BIOPSY AND FINE NEEDLE ASPIRATION OF LEFT HEPATIC LOBE CLINICAL HISTORY: numerous liver lesions, concerns for metastatic vs primary COMPARISON STUDY: CT of the abdomen and pelvis and MRCP October 10, 2021. PROCEDURE: The procedure, risks and benefits were discussed with the patient and informed written consent was obtained. The procedure was performed by Dr. Arrieta following a timeout. Sonography of the liver demonstrated heterogeneous appearance of the liver with nodularity of the liver surface. The lesions shown on prior CT and MRI were not well visualized by sonography however random biopsy within the left hepatic lobe was performed given extensive infiltrative appearance on those exams. Skin was prepped and draped in sterile fashion and local anesthesia was achieved with 1% lidocaine. Under direct ultrasound guidance, 2 22-gauge fine needle aspirations were performed utilizing Jose needles. Malignant cells were noted. Therefore, 18-gauge 2 cm core biopsy within the left hepatic lobe was performed. Samples were deemed preliminarily adequate by pathology. The patient tolerated the procedure well and no immediate complications were evident. IMPRESSION: Successful ultrasound guided 18-gauge core biopsy and fine-needle aspiration of the left hepatic lobe. Discrete lesions on prior CT an MRI were not well visualized by sonography however random biopsy within the left hepatic lobe was performed given extensive infiltrative appearance on those studies. ACT 112: Negative or not required by law. Electronically signed by: Galen Arrieta M.D. 10/11/2021 2:09 PM Hospital Course (1) Liver masses: Patient with history of breast ca s/p lumpectomy and chemotherapy x 8 cycles in 2009. Routine mammograms yearly up until last year noted Seen by PCP and sent for labs and instructed to go to ER for jaziel ging/evaluation Given Vit K for INR>2, improved and has remained stable, no bleeding MELD 29 CTAP on admission with liver infiltrated by numerous metastatic lesions concerning for primary vs metastatic disease (Of note, not nola disease on imaging, making met breast ca unlikely) MRCP without evidence for obstruction amenable to stenting LIVER BX 10/11 --> colorectal primary CT chest with few scattered low suspicion solid pulm nodules measuring up to 4mm, no definite evidence for met pulm disease -No thoracic lymphadenopathy -Partially imaged pathologic upper abdominal lymphadenopathy with mild distal esophageal wall thickening and small amount ascites (rectal wall thickening on CTAP on admit) AFP sent, CEA added given rectal thickening/esophageal thickening on imaging but non-specific -- PATIENT NEVER WITH PRIOR EGD/COLONOSCOPY IN PAST CEA LEVEL RETURNED SIGNIFICANTLY ELEVATED >850 Given dose lactulose as patient reported not really moving bowels --> moving with addition of 20mg BID (multiple BMs) and rx at d/c, titrate for BM Oncology consulted --> arranging FOLFOX tx this upcoming week Surgery consulted --> no inpatient, can plan for Saturday Repeat COVID negative prior to discharge NPO after midnight Saturday Rec palliative outpatient for support/pending tolerance to treatment (2) FEI (acute liver failure): Secondary to likely invasive masses favoring cancer - MRCP as above INR 2.2, given Vit K --> INR stable on repeat 1.3 TB 21.5 on admit, about the same CORN DETASSELER DB 13.6 AST 248 --> 174 ALT 116--> 93 ALP 571--> 442 CEA elevated as above, treatment with chemo for next week (3) Type 2 diabetes mellitus: Last a1c 7.7, held metformin while inpatient BSG AC/HS, ISS while inpatient BSGs acceptable (4) Leukocytosis: WBC 17 afebrile on admission, but started empiric coverage with rocephin, Rocephin IV initially for poss UTI but NO SYMPTOMS, afebrile, discontinued Procal 1.01 on admit, lactic unable to be drawn due to bilirubin levels BCx NGTD after 48 hours (5) Breast cancer: HX of with chemotherapy 2009 - She does not recall being on any other agents such as tamoxifen or other but did admit to regular yearly mammograms no c-scope in past, see above (6) Hyperlipidemia: placed statin on hold given elevated liver enzymes -- held at discharge (7) HTN (hypertension): on HCTZ 12.5mg, lisinopril 10mg, metoprolol 50mg daily HCTZ likely contributing to hyponatremia as well --- on hold --> Na 134 on AM labs Also held lisinopril given Cr 1.32 on admit -- stable 1.17 Given LFTs, and BP not elevated, discontinued HCTZ/lisinopril, can monitor BP (8) Gastritis: reported, on protonix IV BID reports stable eating with moving bowels didn't send rx at d/c as was bid --> sent after discharge (9) Fatigue: secondary to above monitor (10) Jaundice: about the same, 2nd to above port placement for Saturday, chemo to be arranged next week Total Time Total Time Spent Total Time Spent (In Minutes): 60 Discharge Plan Discharge Items Patient Disposition: Home - Self-Care Reason For Visit: ABDOMINAL PAIN, LIVER MASSES Discharge Diagnosis: Liver masses, colorectal cancer Goals: You have been hospitalized for an urgent problem which required surgery. During your stay at [facility], we have made an effort to correct the problem that brought you to the hospital while keeping you as comfortable as possible. Surgery and medications were used to bring your condition under control and your discharge instructions will include directions for any medications you should take after leaving the hospital. Please make sure to follow the advice of your surgeon regarding follow up with the surgeon and with your primary care provider. Activity: Resume your previous activity Non-emergency contact: Primary Care Provider, Surgeon, Aircraft Instrument Mechanic and Oncologist Call non-emergency contact if: you have any medication questions, your symptoms worsen, your pain is not controlled and you have a fever Follow-up/Referrals: Sterling Ronquillo MD [Physician] - 10/16/21 (saturday for a-port ) Sergo Wei MD [Physician] - 10/18/21 11:40 am (2 weeks APPT WITH TONIO CABRERA) Gail Campbell MD [Physician] - (1 month OFFICE WILL CALL PATIENT WITH F/U) Moreno Ac DO [Primary Care Provider] - 10/23/21 10:00 am Tori Gregg MD [Physician] - 10/16/21 (1 week) Diet: Low Fat Addtl Attending Provider Instructions: You have been hospitalized for lab values and imaging concerning for liver masses. Imaging did not show any obstruction, thankfully. We consulted the GI, Oncology, and general surgery team while in the hospital. We were able to obtain a biopsy of the liver, however we checked what's called a "CEA" level due to some thickening of the esophagus and rectum on imaging, and this was elevated, making a colorectal cancer the primary source of your issue w ith spread to the liver. The pathology from the liver biopsy is consistent with a primary source for the current cancer as being from the colon/rectum. You have been evaluated by general surgery and they will place an a-port on saturday to begin chemotherapy with FOLFOX treatment with Dr Gregg from oncology. They are ordering this medication and once the port is in can coordinate for infusions and continued follow up. You will need to NOT EAT OR DRINK AFTER MIDNIGHT ON SATURDAY for your procedure. You have been provided with lactulose to help with constipation and should take daily and increase to twice daily as needed to assist with bowel movements. We have stopped your lisinopril, pravastatin and hydrochlorothiazide in the meantime and your blood pressures have remained stable. Please continue to hold these medications for now. Please follow up with your primary care after discharge to help coordinate further care. Please return to the emergency department with any inability to keep up oral intake, increasing abdominal pain, fever, bleeding, or for any other symptoms concerning for you. Take care! Addtl Sed Special Education Teacher Provider Instructions: General Surgery Instruction: We have scheduled you for placement of an aport catheter for chemotherapy as an outpatient procedure this coming Saturday10/16/[address] Ronquillo. You will have to call the hospital at [phone] on Saturday10/15/2021 between 2-7 pm to get your arrival time for your procedure on Saturday. Please do not drink or eat anything after midnight on Saturday for your procedure on Saturday. Pending Studies at Discharge: Yes Studies:: AFP Stand-Alone Forms: [employer] [facility], Smoking Cessation Medications and DC Order Prescriptions: New lactulose 20 gram/30 mL Solution 20 g PO BID PRN (Reason: constipation) Qty: 1200 RF: 0 pantoprazole [Protonix] 40 mg tablet,delayed release (DR/EC) 40 mg PO BID 14 Days Qty: 28 RF: 0 Continued metformin 500 mg tablet 500 mg PO BID Qty: 180 RF: 3 Discontinued pravastatin 20 mg tablet 20 mg PO DAILY Qty: 90 RF: 3 lisinopril 10 mg tablet 10 mg PO DAILY Qty: 90 RF: 3 hydrochlorothiazide 12.5 mg tablet 12.5 mg PO DAILY Qty: 30 RF: 2 naproxen sodium 220 mg Tablet 220 mg PO DIRECTED PRN (Reason: Pain) RF: 0 No Action metoprolol succinate 50 mg tablet extended release 24 hr 50 mg PO QAM RF: 0 Discharge Orders: Discharge Order (Routine); Ordered 10/13/21 Ordered By: Kayla Hoffman/Other Patient Handouts: Anatomy of the Digestive System Admission Data Admit Date/Time: 10/10/21 18:56 Attending Provider: Claudia Clark Admit Provider: Edis Mathews Primary Care Provider: Moreno Ac Other Providers: Sergo Wei ; Gail Campbell ; Tori Gregg ; Sterling Ronquillo Other Interventions: Discharge Summary Assessment (RN) Last Done: 10/13/21 12:05 Supervising Physician Co-Signing Physician Notes PA Supervision Note: I did not personally see or examine the patient today, but I verified all delcid points of LUCAS Richmond's assessment and plan with the following exceptions/additions: Pt left today before I could see her. Agree with DIscharge summary and plan as above Coding Level of Care Code D/C DAY MANAGEMENT >30 MINS Diagnoses Liver masses R16.0 HALFWAY (acute liver failure) K72.00 Type 2 diabetes mellitus E11.9 Leukocytosis D72.829 Breast cancer C50.919 Hyperlipidemia E78.5 HTN (hypertension) I10 Gastritis K29.70 Fatigue R53.83 Jaundice R17
== END 2021-10-13 14:37 | disposition home or self-care (01) | DRG 442 ==
LOC: ED 15:33 → SUATTDRO 18:56 → EDINP 18:56 → 3E 23:15

== ENCOUNTER 2021-10-17 21:39 | Inpatient (IN) ==
--- NOTE | 2021-10-17 21:48 | Emergency Department Note ---
Impression & Plan FEI (acute liver failure), Liver masses, Portal vein thrombosis ED Provider Note NAME: SCOTT WHITNEY AGE: 76 SEX: F : 1945 ARRIVES VIA: Walk-In INFORMANT: Patient, ED PROVIDER(S): Jc Alan MD Chief Complaint: Weakness HPI: Patient presents due to concern for increasing weakness. Family bedside states that she has not eaten anything in 1 day. The patient does have a recent diagnosis of primary liver CA with metastases or other lesion with liver mets. Patient denies any chest pains or shortness of breath. The patient does complain of some left lower quadrant discomfort. Patient has had bowel movements and does not complain of dysuria or hematuria. No recent falls or trauma. The patient did not take anything for symptoms at home. Patient denies any nausea or vomiting. The patient did have a port placed on Saturday with Dr. Whitney. Patient is pending to see the oncologist next . The patient has had decreased appetite. ROS: See HPI for pertinent positives and negatives. A total of 10 systems were reviewed and otherwise negative. Past medical history: See below Surgical history: See below Social history: See below Physical Exam: GENERAL: Jaundice, no apparent distress, wearing a mask EYE EXAM: Scleral icterus noticed. PERRL, no anisocoria and EOM's grossly intact w/o pain. OROPHARYNX: Moist mucus membranes. Grossly normal dentition. NECK: Supple, no nuchal rigidity, no adenopathy, non-tender. No signs of meningismus. LUNGS: Clear to auscultation. Normal chest wall mechanics. HEART: NSR, no MRG. ABDOMEN: Abdomen soft, mild right upper quadrant and left lower quadrant discomfort without peritonitis normo-active bowel sounds, no masses, no rebound or guarding. BACK: No CVA TTP. SKIN: Jaundice noted. UPPER EXTREMITIES: Upper extremities are grossly normal. LOWER EXTREMITIES: Grossly normal, no edema. NEURO EXAM: A&O x3, cranial nerves II-XII grossly intact, normal speech, moves all 4 extremities on command w/o issue. Differential diagnoses: Infection, dehydration, metabolic abnormality, hypo/hyperglycemia, electrolyte disturbance, anemia, hypoxia, cardiac sources, intracerebral event, toxicologic, neurologic, as well as other pathologies. Course: Patient was seen and evaluated the bedside. Full history physical exam was performed. EKG interpreted by me Normal sinus rhythm, rate of 64, normal intervals, left axis deviation, T wave version lead III per Imaging Studies: CT shows innumerable liver masses with adenopathy and small amount nonocclusive thrombus within the main portal vein. No significant intrahepatic bile duct dilatation by CT. Moderately large amount of ascitic fluid. No evidence of bowel obstruction but possibly a thickened constricting mass in the distal sigmoid colon. Cardiac monitoring: An order was placed for continuous cardiac monitoring. The monitor shows a rate of 95 with sinus rhythm. MDM: Does have a white count of 23 antibiotics were ordered. The patient's hemoglobin platelet count are unremarkable. INR 1.5. Mild hyponatremia 134. The patient's creatinine 1.6. CT was ordered. Patient's bilirubin today is 25.5. Patient is COVID-positive. Patient was most recently admitted and discharged recently on October 13. Patient has a prior history of breast CA status postlumpectomy and chemotherapy with 8 cycles completed in 2009. Patient did have a CT on admission which showed numerous metastatic lesions concerning for primary versus metastatic disease. Patient did had an MRCP without evidence for obstruction amenable to stenting. Patient did have a liver biopsy completed on 10 11 showed concern for primary colorectal malignancy. Surgery was consulted but ended up having the planned port to be arranged for Saturday. Patient is pending FOLFOX treatment this upcoming week with oncology. Dr. Moctezuma had seen the patient Dr. Gregg had discussed treatment options including supportive care/hospice given overall poor prognosis or systemic therapy with FOLFOX with or without Avastin. Patient reportedly would like to consider the FOLFOX even in light of overall poor prognosis. I did convey the findings to the patient's son and stated she did have small clot noted in addition to the other concerning findings based on her prior history. He understood. I did speak with Dr. Gregg who recommended Lovenox 1 kimberly per cake subcu twice daily. After further discussion he does not feel that he is capable of caring for her at home. I did speak with Dr. Dubois. We will start the patient on heparin for now. Patient was admitted to the medicine service. Critical Care: I have personally spent 35 minutes of critical care time in direct management of this patient. This includes bedside care, interpretation of diagnostic studies, and testing, discussion with consultants, patient, and family members, and other require inpatient management activities. This 35 CT abdomen pelvis did show then multiple liver metastases with adenopathy small amount of nonocclusive thrombus within the main portal vein. There is a large amount of ascites. No evidence of obstruction but possibly a thickened constricting mass in the distal sigmoid colon minutes is in excess of all separately billable procedures. Past Med/Surg History Medical History FEI (acute liver failure) Admitted 10/10/21 to 10/13/21 Breast cancer Dx'ed 2009 initially- s/p left lumpectomy and chemo and radiation Gastritis HTN (hypertension) Hyperlipidemia Liver masses Recently dx'ed- admitted to [facility] 10/10/21 to 10/13/21 Concerning for primary vs metastatic disease - patient would like active rgeinaldo atment- heme/onc recommending port placement Osteoarthritis Type 2 diabetes mellitus Surgical History History of appendectomy History of section History of colonoscopy History of hysterectomy total hysterectomy with BSO History of lumpectomy of left breast History of removal of Port-a-Cath "years ago"--removed from right side after chemo completed History of tooth extraction all teeth removed except 2 History of vascular access device hx of aport in right chest wall for chemo Status post breast biopsy left--malignant Family History Sister Diabetes Other No family history of adverse response to anesthesia Social History Smoking Status: Never smoker Second Hand Exposure: Yes (daughter); Hx Alcohol Use: No Hx Substance Use: No Preferred Language: Omani Communication Ability: Effective 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 Beliefs That Will Affect Care: None marital status: Current Living Situation: Family Current Living Situation Comment: son and daughter in law current occupational status: retired How many Children do You have: 6 Feels Safe at Home: Yes Childhood Exposure to Second-Hand Smoke: Yes caffeine: Yes (coffee) Dental Care, Regularly: No Physical Activity Frequency: Other Physical Activity Frequency Comment: walking throughout daily Seatbelt Use: always Sunscreen Use: Yes Assistive Devices: Denture - Upper and Glasses Allergies Allergies Allergy/AdvReac Type Severity Reaction Status Date / Time cinnamon AdvReac Severe Heartburn Verified 10/17/21 23:34 Home Meds Previous Rx's Medication Instructions Recorded metformin 500 mg tablet 500 mg PO BID #180 tab 04/18/21 lactulose 20 gram/30 mL oral 20 g PO BID PRN #1200 ml 10/13/21 solution pantoprazole 40 mg tablet,delayed 40 mg PO BID 14 Days #28 tab 10/13/21 release (Protonix) metoprolol succinate 50 mg 50 mg PO QAM #30 tab 10/14/21 tablet,extended release 24 hr tramadol 50 mg tablet (Ultram) 50 mg PO Q6H PRN #10 tab 10/16/21 Results & Data (ED) Vital Signs Vital Signs - 24 hr 10/17/21 21:41 10/17/21 21:52 10/17/21 22:00 Temperature 36.2 C L Temperature Source Temporal Artery Scan Pulse Rate 78 72 64 Respiratory Rate 22 21 17 Respiratory Effort / Characteristics Non-Labored Spontaneous Blood Pressure 99/68 L Blood Pressure Mean 78 Pulse Oximetry 97 92 92 Oxygen Delivery Method Room Air Room Air Sepsis Recent Fever Within 48 Hours No Sepsis New/Unexplained Change in Mental Status No Sepsis Action Taken by Nursing No Action Required 10/17/21 22:10 10/17/21 22:20 10/17/21 22:23 Temperature Temperature Source Pulse Rate 81 70 Respiratory Rate 21 12 Respiratory Effort / Characteristics Blood Pressure Blood Pressure Mean Pulse Oximetry Oxygen Delivery Method Room Air Sepsis Recent Fever Within 48 Hours Sepsis New/Unexplained Change in Mental Status Sepsis Action Taken by Nursing 10/17/21 22:30 10/17/21 22:40 10/17/21 22:50 Temperature Temperature Source Pulse Rate 65 63 69 Respiratory Rate 18 15 0 L Respiratory Effort / Characteristics Blood Pressure Blood Pressure Mean Pulse Oximetry 92 92 Oxygen Delivery Method Room Air Room Air Sepsis Recent Fever Within 48 Hours Sepsis New/Unexplained Change in Mental Status Sepsis Action Taken by Nursing 10/17/21 23:00 10/17/21 23:10 10/18/21 00:23 Temperature Temperature Source Pulse Rate 65 67 64 Respiratory Rate 14 15 18 Respiratory Effort / Characteristics Blood Pressure 110/58 L Blood Pressure Mean 75 Pulse Oximetry 92 92 93 Oxygen Delivery Method Room Air Room Air Room Air Sepsis Recent Fever Within 48 Hours Sepsis New/Unexplained Change in Mental Status Sepsis Action Taken by Longterm Medications Current Medication List: was personally reviewed by id Laboratory Data Attestation: I reviewed the patient's lab results. Result diagrams: 10/17/21 22:01 10/17/21 22:01 Lab Results 10/17/21 10/17/21 10/17/21 Range/Units 22:01 22:01 22:01 WBC 23.16 H (4.8-10.8) K/uL RBC 4.74 (4.2-5.4) M/uL Hgb 14.9 (12.0-16.0) g/dL POC Hgb (12.0-16.0) g/dl Hct 44.2 (37-47) % POC Hct (37-47) % MCV 93.2 (80-100) fL MCH 31.4 (25-34) pg MCHC 33.7 (32-36) g/dL RDW Std Deviation 78.6 H (36.4-46.3) fL RDW Coeff of Frida 23.0 H (11.5-14.5) % Plt Count 328 (130-400) K/uL MPV 9.6 (7.4-10.4) fL Neutrophils % (Manual) 87.6 % Lymphocytes % (Manual) 6.2 % Monocytes % (Manual) 4.4 % Metamyelocytes % (Man) 0.9 % Myelocytes % (Man) 0.9 % Neutrophils # (Manual) 20.29 H (1.4-6.5) K/uL Total Absolute Neuts 20.29 H (1.4-6.5) K/uL Lymphocytes # (Manual) 1.44 (1.2-3.4) K/uL Total Abs Lymphocytes 1.44 (1.2-3.4) K/uL Monocytes # (Manual) 1.02 H (0.11-0.59) K/uL Metamyelocytes # (Man) 0.21 H (0-0) K/uL Myelocytes # (Manual) 0.21 H (0-0) K/uL RBC Morphology Unremarkable PT 15.7 H (9.0-12.0) Seconds INR 1.5 H (0.9-1.1) POC Sodium (135-144) mmol/L Sodium 134 L (136-145) mmol/L POC Potassium (3.3-5.0) mmol/L Potassium TNP POC Chloride (101-112) mmol/L Chloride 101 (98-107) mmol/L Carbon Dioxide 18 L (21-32) mmol/L POC Total CO2 (24-31) mmol/L Anion Gap 15 H (3-11) POC Anion Gap (16-25) mmol/L POC BUN (7-18) mg/dl BUN TNP Creatinine TNP POC Creatinine (0.6-1.3) mg/dl Est Cr Clr Drug Dosing TNP Est GFR ( Amer) TNP Est GFR (Non-Af Amer) TNP BUN/Creatinine Ratio TNP Glucose 126 H (70-99(Fasting)) mg/dl POC Glucose (other) (70-99) mg/dl Calcium 8.8 (8.5-10.1) mg/dl POC Ioniz Calcium Hilario (1.12-1.32) mmol/l Magnesium TNP Total Bilirubin 25.5 H (0.2-1.0) mg/dl AST TNP ALT 111 H (7-52) U/L Alkaline Phosphatase TNP Ammonia Total Protein 6.0 (6.0-8.3) gm/dl Albumin 2.7 L (3.4-5.0) gm/dl Globulin 3.3 (2.5-4.0) gm/dl Albumin/Globulin Ratio 0.8 L (0.9-2) TSH (0.300-4.500) uIu/ml SARS-CoV-2, RNA, NAAT (NEGATIVE) 10/17/21 10/17/21 10/17/21 Range/Units 22:01 22:01 22:14 WBC (4.8-10.8) K/uL RBC (4.2-5.4) M/uL Hgb (12.0-16.0) g/dL POC Hgb 16.7 H (12.0-16.0) g/dl Hct (37-47) % POC Hct 49 H (37-47) % MCV (80-100) fL MCH (25-34) pg MCHC (32-36) g/dL RDW Std Deviation (36.4-46.3) fL RDW Coeff of Frida (11.5-14.5) % Plt Count (130-400) K/uL MPV (7.4-10.4) fL Neutrophils % (Manual) % Lymphocytes % (Manual) % Monocytes % (Manual) % Metamyelocytes % (Man) % Myelocytes % (Man) % Neutrophils # (Manual) (1.4-6.5) K/uL Total Absolute Neuts (1.4-6.5) K/uL Lymphocytes # (Manual) (1.2-3.4) K/uL Total Abs Lymphocytes (1.2-3.4) K/uL Monocytes # (Manual) (0.11-0.59) K/uL Metamyelocytes # (Man) (0-0) K/uL Myelocytes # (Manual) (0-0) K/uL RBC Morphology PT (9.0-12.0) Seconds INR (0.9-1.1) POC Sodium 135 (135-144) mmol/L Sodium (136-145) mmol/L POC Potassium 4.3 (3.3-5.0) mmol/L Potassium POC Chloride 104 (101-112) mmol/L Chloride (98-107) mmol/L Carbon Dioxide (21-32) mmol/L POC Total CO2 19 L (24-31) mmol/L Anion Gap (3-11) POC Anion Gap 18.0 (16-25) mmol/L POC BUN 35 H (7-18) mg/dl BUN Creatinine POC Creatinine 1.6 H (0.6-1.3) mg/dl Est Cr Clr Drug Dosing Est GFR ( Amer) Est GFR (Non-Af Amer) BUN/Creatinine Ratio Glucose (70-99(Fasting)) mg/dl POC Glucose (other) 134 H (70-99) mg/dl Calcium (8.5-10.1) mg/dl POC Ioniz Calcium Hilario 0.98 L (1.12-1.32) mmol/l Magnesium Total Bilirubin (0.2-1.0) mg/dl AST ALT (7-52) U/L Alkaline Phosphatase Ammonia TNP Total Protein (6.0-8.3) gm/dl Albumin (3.4-5.0) gm/dl Globulin (2.5-4.0) gm/dl Albumin/Globulin Ratio (0.9-2) TSH 2.151 (0.300-4.500) uIu/ml SARS-CoV-2, RNA, NAAT (NEGATIVE) 10/17/21 Range/Units 22:25 WBC (4.8-10.8) K/uL RBC (4.2-5.4) M/uL Hgb (12.0-16.0) g/dL POC Hgb (12.0-16.0) g/dl Hct (37-47) % POC Hct (37-47) % MCV (80-100) fL MCH (25-34) pg MCHC (32-36) g/dL RDW Std Deviation (36.4-46.3) fL RDW Coeff of Frida (11.5-14.5) % Plt Count (130-400) K/uL MPV (7.4-10.4) fL Neutrophils % (Manual) % Lymphocytes % (Manual) % Monocytes % (Manual) % Metamyelocytes % (Man) % Myelocytes % (Man) % Neutrophils # (Manual) (1.4-6.5) K/uL Total Absolute Neuts (1.4-6.5) K/uL Lymphocytes # (Manual) (1.2-3.4) K/uL Total Abs Lymphocytes (1.2-3.4) K/uL Monocytes # (Manual) (0.11-0.59) K/uL Metamyelocytes # (Man) (0-0) K/uL Myelocytes # (Manual) (0-0) K/uL RBC Morphology PT (9.0-12.0) Seconds INR (0.9-1.1) POC Sodium (135-144) mmol/L Sodium (136-145) mmol/L POC Potassium (3.3-5.0) mmol/L Potassium POC Chloride (101-112) mmol/L Chloride (98-107) mmol/L Carbon Dioxide (21-32) mmol/L POC Total CO2 (24-31) mmol/L Anion Gap (3-11) POC Anion Gap (16-25) mmol/L POC BUN (7-18) mg/dl BUN Creatinine POC Creatinine (0.6-1.3) mg/dl Est Cr Clr Drug Dosing Est GFR ( Amer) Est GFR (Non-Af Amer) BUN/Creatinine Ratio Glucose (70-99(Fasting)) mg/dl POC Glucose (other) (70-99) mg/dl Calcium (8.5-10.1) mg/dl POC Ioniz Calcium Hilario (1.12-1.32) mmol/l Magnesium Total Bilirubin (0.2-1.0) mg/dl AST ALT (7-52) U/L Alkaline Phosphatase Ammonia Total Protein (6.0-8.3) gm/dl Albumin (3.4-5.0) gm/dl Globulin (2.5-4.0) gm/dl Albumin/Globulin Ratio (0.9-2) TSH (0.300-4.500) uIu/ml SARS-CoV-2, RNA, NAAT POSITIVE A* (NEGATIVE) Administered Medications Discontinued Medications Sodium Chloride (Nss 1000ml) 1,000 mls @ 999 mls/hr IV .Q1H1M ALEXEI Stop: 10/17/21 23:00 Last Infusion: 10/18/21 00:15 Dose: 0 mls/hr Documented by: [id number] Admin: 10/17/21 22:38 Dose: 999 mls/hr Documented by: [id number] Piperacillin Sod/Tazobactam Sod (Zosyn) 4.5 gm in 120 mls @ 240 mls/hr IV NOW ONE Stop: 10/18/21 00:10 Last Infusion: 10/18/21 01:15 Dose: 0 mls/hr Documented by: [id number] Admin: 10/18/21 00:23 Dose: 240 mls/hr Documented by: [id number] Sodium Chloride (Nss 1000ml) 500 mls @ 999 mls/hr IV .Q31M ONE Stop: 10/18/21 00:13 Last Infusion: 10/18/21 01:15 Dose: 0 mls/hr Documented by: [id number] Admin: 10/18/21 00:23 Dose: 999 mls/hr Documented by: [id number] Ioversol (Optiray 320 100ml) 93 ml IV ONCE ONE Stop: 10/17/21 23:24 Last Admin: 10/17/21 23:24 Dose: 93 ml Documented by: [id number] Discharge Plan Visit Data Chief Complaint: Weakness Stated Complaint: WEAKNESS, JAUNDICE, NOT EATING, PORT PUT IN SATURDAY ED Provider: Jc Alan Discharge Problem: FEI (acute liver failure), Liver masses, Portal vein thrombosis Forms Stand Alone Forms: [facility] Prescriptions Prescriptions: No Action metformin 500 mg tablet 500 mg PO BID Qty: 180 RF: 3 tramadol [Ultram] 50 mg tablet 50 mg PO Q6H PRN (Reason: pain) Qty: 10 RF: 0 lactulose 20 gram/30 mL Solution 20 g PO BID PRN (Reason: constipation) Qty: 1200 RF: 0 pantoprazole [Protonix] 40 mg tablet,delayed release (DR/EC) 40 mg PO BID 14 Days Qty: 28 RF: 0 metoprolol succinate 50 mg tablet extended release 24 hr 50 mg PO QAM Qty: 30 RF: 0 Referrals Referrals: Moreno Ac DO [Primary Care Provider] -
[2021-10-17] MEDS ORDERED: SODIUM CHLORIDE 0.9% 1000ML 1,000 ML IV SCH (22:00)
[2021-10-17 22:25] LABS: Hematocrit (blood only) 44.2 % (37-47); Hemoglobin 14.9 g/dL (12.0-16.0); Mean Corpuscular Hemoglobin 31.4 pg (25-34); Mean Corpuscular Hgb Conc 33.7 g/dL (32-36); Mean Corpuscular Volume 93.2 fL (80-100); Mean Platelet Volume 9.6 fL (7.4-10.4); Platelet Count 328 K/uL (130-400); RDW Standard Deviation 78.6 fL (36.4-46.3); Red Blood Count 4.74 M/uL (4.2-5.4); White Blood Count 23.16 K/uL (4.8-10.8)
[2021-10-17 22:27] LABS: iSTAT Creatinine 1.6 mg/dl (0.6-1.3); iSTAT Hemoglobin 16.7 g/dl (12.0-16.0); iSTAT Ionized Calcium 0.98 mmol/l (1.12-1.32); iSTAT Potassium 4.3 mmol/L (3.3-5.0)
[2021-10-17 22:33] LABS: INR 1.5 (0.9-1.1); Prothrombin Time 15.7 Seconds (9.0-12.0)
[2021-10-17 22:47] LABS: ALC (manual) 1.44 K/uL (1.2-3.4); ANC (manual) 20.29 K/uL (1.4-6.5); Lymphocytes # (manual) 1.44 K/uL (1.2-3.4); Lymphocytes % (manual) 6.2 %; Metamyelocytes # (manual) 0.21 K/uL (0-0); Metamyelocytes % (manual) 0.9 %; Monocytes # (manual) 1.02 K/uL (0.11-0.59); Monocytes % (manual) 4.4 %; Myelocytes # (manual) 0.21 K/uL (0-0); Myelocytes % (manual) 0.9 %; Neutrophils # (manual) 20.29 K/uL (1.4-6.5); Neutrophils % (manual) 87.6 %; RBC Morphology Unremarkable
[2021-10-17] MEDS ORDERED: OPTIRAY 320 100ml IV ONE (23:23)
[2021-10-17 23:28] LABS: Alanine Aminotransferase 111 U/L (7-52); Albumin Globulin Ratio 0.8 (0.9-2); Albumin Level 2.7 gm/dl (3.4-5.0); Anion Gap 15 (3-11); Bilirubin,Total 25.5 mg/dl (0.2-1.0); Calcium 8.8 mg/dl (8.5-10.1); Carbon Dioxide 18 mmol/L (21-32); Chloride 101 mmol/L (98-107); Globulin 3.3 gm/dl (2.5-4.0); Glucose 126 mg/dl (70-99(Fasting)); Sodium 134 mmol/L (136-145)
[2021-10-17] MEDS ORDERED: PIPERACILLIN/TAZOBACTAM 4.5 GM/120 ML BAG IV ONE (23:41)
[2021-10-17] MEDS ORDERED: SODIUM CHLORIDE 0.9% 1000ML 500 ML IV ONE (23:43)
[2021-10-18] MEDS ORDERED: Heparin IV Adult Wt-Based Standard *NO* Bolus Protocol IV ONE (00:54)
[2021-10-18] MEDS ORDERED: HEPARIN SODIUM/DEXTROSE 25,000 UNITS/500 ML BAG IV SCH (01:15)
--- NOTE | 2021-10-18 02:06 | History & Physical Report ---
Date of Service October 18, 2021 Assessment & Plan (1) COVID-19: Plan: Wen Ronquillo is a 76-year-old female with past medical history of liver cancer with metastasis, DM 2, hypertension, breast cancer who arrived for concerns of weakness and deconditioning at home. Found to have portal vein thromboses and COVID-19 positive. COVID-19 Patient found to be mildly hypoxic on room air to 91% sign Difficult to ascertain whether this is more related to deconditioning/fatigue precluding her from being able to take full, deep breaths or if her shortness of breath is actually related to her COVID-19 diagnosis With her complex medical history, will treat as the latter Will start dexamethasone 6 mg IV daily We will hold on remdesivir as she has significant hepatic impairment and this drug has been known to cause hepatotoxicity Supplemental oxygen as needed to maintain O2 sats COVID isolation precautions Admit to med telemetry Portal vein thrombosis As described on CT Started on heparin in ED Ordered Lovenox 80 mg SQ twice daily starting in the morning discontinue heparin drip at that time Consult heme-onc for further guidance in the setting of her cancer Deconditioning/weakness in the setting of liver masses concerning for primary versus metastatic cancer PT/OT consult Dietary consult Heme-onc consulted as above Tramadol as needed Hypertension Continue metoprolol DM2 Hold home metformin Glycemic consult in the setting of steroid initiation DVT prophylaxis: On heparin, to start Lovenox as above Diet: Regular, dietary consult as above Dispo: Admit to MedSurg, COVID isolation CODE STATUS: DNR/DNI (2) Portal vein thrombosis: (3) Liver masses: (4) Type 2 diabetes mellitus: (5) HTN (hypertension): (6) Jaundice: History of Present Illness Primary Care Provider: Moreno Ac DO Wen Ronquillo is a 76-year-old female with past medical history of liver cancer with metastasis, DM 2, hypertension, breast cancer who arrived for concerns of weakness and deconditioning at home. Over the past several days she has not been able to tolerate oral nutrition, she has felt significantly weak. She does state that over the past day or so she has felt that it has been difficult for her to breathe said that her lungs feel like they are not working. However, has had no cough, congestion. She has had some mild vague abdominal discomfort. However, has not had nausea, vomiting. Has continued to have normal bowel movements without melena or fadumo blood. No urinary complaints including hematuria, dysuria, frequency, urgency. Patient had a port placed earlier this week, as she is pending the initiation of chemotherapy with FOLFOX with Dr. Gregg of [facility] cancer care [facility]. The ED, patient had CT A/P showing innumerable low-density masses throughout the liver consistent with metastases. Gastrohepatic and peripancreatic adenopathy. Small amount of nonocclusive thrombus seen within the main portal vein. Moderately large amount of ascites. No evidence of bowel obstruction. Possible thickened constricting mass in the distal sigmoid colon. No hydronephrosis. Chest x-ray was unremarkable. Lab work showed leukocytosis of 23.16 with left shift, INR of 1.5, total bilirubin elevated to 25.5. AST alk phos ammonia levels unable to perform due to myelosis and icterus, though lab work from yesterday did show significant elevations in AST ALT and alk phos. Patient did test positive for COVID-19. Allergies Allergy/AdvReac Type Severity Reaction Status Date / Time cinnamon AdvReac Severe Heartburn Verified 10/17/21 23:34 Home Medications Medication Instructions Recorded Confirmed Type metformin 500 mg tablet 500 mg PO BID #180 tab 04/18/21 10/17/21 Rx lactulose 20 gram/30 mL oral 20 g PO BID PRN #1200 ml 10/13/21 10/17/21 Rx solution pantoprazole 40 mg tablet,delayed 40 mg PO BID 14 Days #28 tab 10/13/21 10/17/21 Rx release (Protonix) metoprolol succinate 50 mg 50 mg PO QAM #30 tab 10/14/21 10/17/21 Rx tablet,extended release 24 hr tramadol 50 mg tablet (Ultram) 50 mg PO Q6H PRN #10 tab 10/16/21 10/17/21 Rx Past Med/Surg History Medical History FEI (acute liver failure) Admitted 10/10/21 to 10/13/21 Breast cancer Dx'ed 2009 initially- s/p left lumpectomy and chemo and radiation Gastritis HTN (hypertension) Hyperlipidemia Liver masses Recently dx'ed- admitted to [facility] 10/10/21 to 10/13/21 Concerning for primary vs metastatic disease - patient would like active treatment- heme/onc recommending port placement Osteoarthritis Type 2 diabetes mellitus Surgical History History of appendectomy History of section History of colonoscopy History of hysterectomy total hysterectomy with BSO History of lumpectomy of left breast History of removal of Port-a-Cath "years ago"--removed from right side after chemo completed History of tooth extraction all teeth removed except 2 History of vascular access device hx of aport in right chest wall for chemo Status post breast biopsy left--malignant Family History Sister Diabetes Other No family history of adverse response to anesthesia Social History Smoking Status: Never smoker Second Hand Exposure: No; Do You Dip or Chew Tobacco: No; Tobacco Cessation Education Requested by Patient: No Hx Alcohol Use: No Hx Substance Use: No Preferred Language: Serbian Communication Ability: Effective Hearing Ability: Normal [employer] Required: No Beliefs That Will Affect Care: None marital status: Current Living Situation: Family Current Living Situation Comment: Lives with Son and Daughter in Law. current occupational status: retired How many Children do You have: 6 Other Information That Helps Us Care for You: No Feels Safe at Home: Yes Safety Concerns: Feels Safe At This Time and Afraid for Self Childhood Exposure to Second-Hand Smoke: Yes caffeine: Yes (coffee) Dental Care, Regularly: No Physical Activity Frequency: Other Physical Activity Frequency Comment: walking throughout daily Seatbelt Use: always Sunscreen Use: Yes Assistive Devices: Denture - Upper and Glasses Review of Systems Review of Systems: All systems reviewed & are unremarkable except as noted in HPI & below Physical Exam Physical Exam: GENERAL: A&Ox3. Tired appearing. HEENT: PERRL, EOMI. Moist mucous membranes. Scleral icterus noted. NECK: No JVD. CHEST/LUNGS: CTAB A/P. No crackles, wheezes, rales, rhonchi. HEART: RRR. No m/g/r. No carotid bruits. ABDOMEN: NT/ND, soft. BS+ x4 EXTREMITIES: No cyanosis, no clubbing, no edema SKIN: Warm and dry. Jaundiced. PSYCHIATRIC: Euthymic affect, no SI, no pressured speech, no hallucinations NEUROLOGIC: No FND. Results & Data Results & Data ([facility]) Vital Signs (Past 12 Hours) Vital Signs Temp Pulse Resp BP Pulse Ox 10/18/21 01:30 63 20 91 10/18/21 01:20 61 20 91 10/18/21 01:10 59 L 24 92 10/18/21 01:00 16 92 10/18/21 00:50 24 92 10/18/21 00:40 58 L 20 91 10/18/21 00:30 56 L 17 110/58 L 92 10/18/21 00:23 64 18 110/58 L 93 10/17/21 23:10 67 15 92 10/17/21 23:00 65 14 92 10/17/21 22:50 69 0 L 92 10/17/21 22:40 63 15 92 10/17/21 22:30 65 18 10/17/21 22:20 70 12 10/17/21 22:10 81 21 10/17/21 22:00 64 17 92 10/17/21 21:52 72 21 92 10/17/21 21:41 36.2 C L 78 22 99/68 L 97 Code Status & VTE Plan VTE Prophylaxis Plan VTE Prophylaxis will be ordered: Yes Supervising Physician Co-Signing Physician Notes Attending addendum: I have physically seen this patient, have supervised the medical residents activities, and agree with the H&P unless as otherwise noted. Assessment and Plan: Liver failure/liver mets/portal vein thrombosis- Heparin drip per standard protocol Port placed for institution of chemotherapy COVID-19 infection- Most significant symptom is that of fatigue, which is likely contributing to hypoxia due to inability to take deep breaths Dexamethasone 6 mg IV daily Duonebs every 4 hours while awake and every 2 hours when necessary. Diabetes mellitus- Hold metformin Placed on Accu-Cheks before meals and at bedtime with NovoLog coverage per scale Remaining orders and notations as noted Resident Activity Tracking Resident Involvement: Resident Care Provided Care Provided: Adult Hospital Medicine
[2021-10-18] MEDS ORDERED: GLUCAGON FOR INJ 1 MG VIAL SQ PRN (04:03)
[2021-10-18] MEDS ORDERED: GLUCOSE 10 TABS/TUBE PO PRN (04:03)
[2021-10-18] MEDS ORDERED: LACTULOSE SYRUP 20 GM/30 ML UDC PO PRN (04:03)
[2021-10-18] MEDS ORDERED: CARBOHYDRATES FOR HYPOGLYCEMIA PO PRN (04:03)
[2021-10-18] MEDS ORDERED: PHARMACY GLYCEMIC MGMT CONSULT PRN (04:03)
[2021-10-18] MEDS ORDERED: DEXTROSE 50% 50 ML SYRINGE IV PRN (04:03)
[2021-10-18] MEDS ORDERED: GLUCOSE 40% GEL 15 GM TUBE PO PRN (04:03)
[2021-10-18] MEDS ORDERED: POLYETHYLENE (MIRALAX) 17 GM PACK PO PRN (04:03)
[2021-10-18] MEDS: traMADol HCL 50 MG TABLET PO PRN ×2 (04:25→18:06)
[2021-10-18] MEDS ORDERED: HEPARIN 100 UNIT/ML 5ML FLUSH FLUSH PRN (07:23)
[2021-10-18 07:28] LABS: Basophils % (auto) 0.5 %; Eosinophils # (auto) 0.02 K/uL (0-0.5); Eosinophils % (auto) 0.1 %; Hemoglobin 14.2 g/dL (12.0-16.0); Immature Granulocytes # (auto) 0.52 K/uL (0.00-0.02); Immature Granulocytes % (auto) 2.8 %; Lymphocytes # (auto) 1.52 K/uL (1.2-3.4); Lymphocytes % (auto) 8.3 %; Mean Corpuscular Hemoglobin 30.9 pg (25-34); Mean Corpuscular Hgb Conc 32.3 g/dL (32-36); Mean Corpuscular Volume 95.7 fL (80-100); Mean Platelet Volume 9.8 fL (7.4-10.4); Monocytes # (auto) 1.91 K/uL (0.11-0.59); Monocytes % (auto) 10.4 %; Neutrophils # (auto) 14.28 K/uL (1.4-6.5); Neutrophils % (auto) 77.9 %; Platelet Count 267 K/uL (130-400); RDW Coefficient of Variation 23.7 % (11.5-14.5); RDW Standard Deviation 83.3 fL (36.4-46.3); White Blood Count 18.35 K/uL (4.8-10.8)
[2021-10-18 07:35] LABS: Partial Thromboplastin Ratio 3.5
--- NOTE | 2021-10-18 07:39 | CT Scan Report ---
CT abd pelvis IV con only CLINICAL HISTORY: liver mets, LLQ and RUQ pain COMPARISON STUDY: 10/10/2021 CT DOSE: 583.18 mGy.cm TECHNIQUE: Standard CT of the Abdomen and Pelvis was performed with IV contrast. A dose lowering alea hnique was utilized adhering to the principles of ALARA. Contrast Volume: Optiray 320, 93 ml. The patient did not receive oral contrast. FINDINGS: Lung base: There is asymmetric elevation right hemidiaphragm with crowding the bronchovascular markin gs the right lung base. Minimal linear atelectasis versus scarring is present in both lung bases as w ell. Abdominal cavity: Compared to previous examination, there is increase ascites which is now mild-to-mo derate in degree. Upper abdominal adenopathy is again seen and unchanged. Liver: Liver is grossly heterogeneous in attenuation with marked heterogeneous mass is seen throughou t the liver parenchyma representing metastatic disease . There is no longer air seen within the liver . Spleen: There is homogeneous attenuation of the splenic parenchyma. There is no enhancing mass lesion . Pancreas: There is homogeneous attenuation of the pancreatic parenchyma. There is no evidence for mas s lesion or peripancreatic fluid collection. Gall Bladder: The gallbladder is contracted. Adrenal glands: The adrenal glands are normal in size and attenuation. There is no evidence for enhan cing mass lesion. Kidneys: There is homogeneous attenuation of the renal parenchyma bilaterally. There is no evidence f or renal calculus or hydronephrosis. There is no evidence for enhancing mass. Bowel: There is again a small hiatal hernia. The bowel loops are normally placed within the abdomen a nd pelvis without evidence for dilatation or obstruction. There is again mucosal thickening present i nvolving the rectosigmoid junction. This lack of interval change since the previous study is suspicio us for the presence of possible annular lesion. Direct visualization is recommended. There are no inf lammatory changes present. There is no evidence for free air. Bladder: The bladder is within normal limits with no evidence for focal mass, calculus or diverticulu m. : There is no evidence for pelvic mass or adenopathy. Vasculature: There is no evidence for aneurysmal dilatation of the abdominal aorta. Atherosclerotic c alcification is present. Osseous structures: There is no acute osseous pathology. Degenerative changes seen throughout the spi ne with no lytic or blastic lesions. IMPRESSION: 1. Compared to previous examination, there is again evidence for diffuse liver metastases. 2. There has been interval increase in small to moderate degree of ascites. 3. Pathologic adenopathy is again seen in the upper abdomen. 4. There is no longer air seen within the liver. 5. There is again abnormal mucosal thickening of the rectosigmoid junction suspicious for the presenc e of a mass lesion. Direct visualization is recommended. ACT 112: Negative or not required by law. Electronically signed by: Salvatore Patrick M.D. 10/18/2021 7:37 AM
[2021-10-18 08:00] LABS: Partial Thromboplastin Time 97.2 Seconds (21.0-31.0)
[2021-10-18 08:17] LABS: Anisocytosis Present; Target Cells 2+
[2021-10-18] MEDS: PANTOprazole 40 MG TAB PO SCH ×2 (08:28→20:09)
[2021-10-18] MEDS: dexAMETHasone 6 MG in SYRINGE 0 ML IV SCH (08:28)
[2021-10-18] MEDS: METOPROLOL SUCC 50MG EXT REL TAB PO SCH (08:28)
[2021-10-18] MEDS: ENOXAPARIN 80 MG/0.8 ML SYR SQ SCH ×2 (08:28→19:51)
[2021-10-18] MEDS: INSULIN ASPART PER UNIT SC SCH ×4 (08:33→20:17)
--- NOTE | 2021-10-18 08:53 | XRay Report ---
XR chest 1V portable CLINICAL HISTORY: weakness TECHNIQUE: Single frontal radiograph of the chest was obtained. Comparison: Comparison is made to chest radiograph 10/16/2021 FINDINGS: Left chest port is seen. The cardiomediastinal silhouette is normal. Density is seen at the left lung base. Lungs are underinflated. No evidence of pleural effusion or pneumothorax. Degenerative changes are seen in the bilateral shoulder joints. IMPRESSION: Left lung base airspace opacity likely represents atelectasis, superimposed pneumonia or aspiration c annot be excluded. ACT 112: Negative or not required by law. Electronically signed by: Chema Palafox M.D. 10/18/2021 8:52 AM
[2021-10-18] MEDS ORDERED: NovoLIN-N (NPH) PER UNIT CHARGE SQ ONE (09:00)
[2021-10-18 10:15] LABS: Estimated Average Glucose 97 mg/dl
--- NOTE | 2021-10-18 12:43 | Hospitalist Progress Note ---
Date of Service October 18, 2021 Assessment & Plan (1) Pneumonia due to COVID-19 virus: Plan: LLL. either 2nd COVID vs bacterial. procal is elevated. o2 sats in RA during my visit ~90%. cont dexamethasone 6mg IV Daily - day #1 today. add cefepime + doxy for bacterial coverage -- need gram negative pathogen spectrum given recent hospitalization. O2, supportive care. (2) FEI (acute liver failure): Plan: recent hospital stay for profound hyperbilirubinemia. this led to appropriate w/u and imaging showing innumerable mets of the liver. s/p biopsy - suspected to have stage 4 colorectal ca. given her confusion, mild asterixis, etc I suspect some element of elevated ammonia level. due to the high bilirubin the ammonia assay has been indeterminate. thus, will place on empiric rifaximin 550mg BID while awaiting the ammonia level (to be sent to [facility]). INR noted to be 1.5 c/w hepatic synthetic dysfunction. (3) Colon cancer metastasized to liver: Plan: dx during recent admission. underwent port placement in prep for chemotherapy. very, very poor prognosis. (4) Portal vein thrombosis: Plan: STAT rad reading overnight suggested PVT. lovenox 1mg/kg BID. (5) Type 2 diabetes mellitus: Plan: Novolog SSI Hold metformin (6) HTN (hypertension): Plan: metoprolol daily (7) Acute metabolic encephalopathy: Plan: COVID infection, suspected elevated ammonia levels, hyperbilirubinemia, other factors likely all playing a role Will obtain head CT to r/o mets Plan: updated pt's son by phone this evening DNR/DNI pt's son voices understanding that her mother's prognosis is very poor Admission and Anticipated Discharge Date Admission Date: October 18, 2021 Subjective patient confused when I entered her room she was holding her TV remote to her ear and talking into as if she was having a conversation with someone she knew it was 2021 but couldn't tell me why she was here she complained of severe fatigue denied any areas of pain no cough mild BOSCH also noted by patient staff report VERY LITTLE appetite if any during my visit she reported she needed to go to the bathroom the RN and I helped her to the bathroom she was VERY weak and unsteady Review of Systems Review of Systems: gen - extreme weakness/fatigue cv - no cp pulm - no cough/sputum GI - no vomiting or diarrhea per nurses Physical Exam Physical Exam: gen - very sleepy, confused, quickly falls asleep when she got back in bed mouth - MM dry skin - jaundice from head to toe heart - RRR, s1 s2 lungs - decreased BS bases, occasional crackle, no increased work of breathing abd - distended, BS+, NT ext - edema present; pulses 2+ b/l neuro - mild asterixis noted; gait unsteady Results & Data Results & Data ([facility]) Vital Signs (Past 12 Hours) Vital Signs Temp Pulse Pulse Resp BP BP Pulse Ox 10/18/21 09:00 36.4 C L 64 16 110/60 95 10/18/21 04:00 36.6 C 66 18 106/68 94 10/18/21 03:36 72 20 102/45 L 93 10/18/21 02:40 18 94 10/18/21 02:30 20 93 10/18/21 02:20 20 92 10/18/21 02:14 12 102/45 L 92 10/18/21 02:10 21 91 10/18/21 02:00 69 19 92 10/18/21 01:50 66 20 93 10/18/21 01:40 0 L 16 89 L 10/18/21 01:30 63 20 91 10/18/21 01:20 61 20 91 10/18/21 01:10 59 L 24 92 10/18/21 01:00 16 92 10/18/21 00:50 24 92 Pulse Ox 10/18/21 09:00 10/18/21 04:00 94 10/18/21 03:36 10/18/21 02:40 10/18/21 02:30 10/18/21 02:20 10/18/21 02:14 10/18/21 02:10 10/18/21 02:00 10/18/21 01:50 10/18/21 01:40 10/18/21 01:30 10/18/21 01:20 10/18/21 01:10 10/18/21 01:00 10/18/21 00:50 Laboratory Results Laboratory Results - last 24 hr 10/18/21 10/18/21 10/18/21 06:34 06:34 06:34 WBC 18.35 H RBC 4.60 Hgb 14.2 Hct 44.0 MCV 95.7 MCH 30.9 MCHC 32.3 RDW Std Deviation 83.3 H RDW Coeff of Frida 23.7 H Plt Count 267 MPV 9.8 Immature Gran % (Auto) 2.8 Neut % (Auto) 77.9 Lymph % (Auto) 8.3 Childress % (Auto) 10.4 Eos % (Auto) 0.1 Baso % (Auto) 0.5 Neut # (Auto) 14.28 H Lymph # (Auto) 1.52 Childress # (Auto) 1.91 H Eos # (Auto) 0.02 Baso # (Auto) 0.10 Immature Gran # (Auto) 0.52 H Anisocytosis Present Target Cells 2+ PT INR APTT 97.2 H* PTT Ratio 3.5 Sodium Potassium Chloride Carbon Dioxide Anion Gap BUN Creatinine Est Cr Clr Drug Dosing Est GFR ( Amer) Est GFR (Non-Af Amer) BUN/Creatinine Ratio Glucose POC Glucose Estimat Average Glucose 97 Hemoglobin A1c 5.0 Calcium Magnesium Total Bilirubin AST ALT Alkaline Phosphatase Ammonia Total Protein Albumin Globulin Albumin/Globulin Ratio Procalcitonin Ref Lab Test Result 10/18/21 10/18/21 10/18/21 08:24 12:28 13:05 WBC RBC Hgb Hct MCV MCH MCHC RDW Std Deviation RDW Coeff of Frida Plt Count MPV Immature Gran % (Auto) Neut % (Auto) Lymph % (Auto) Childress % (Auto) Eos % (Auto) Baso % (Auto) Neut # (Auto) Lymph # (Auto) Childress # (Auto) Eos # (Auto) Baso # (Auto) Immature Gran # (Auto) Anisocytosis Target Cells PT INR APTT PTT Ratio Sodium Cancelled Potassium Cancelled Chloride Cancelled Carbon Dioxide Cancelled Anion Gap Cancelled BUN Cancelled Creatinine Cancelled Est Cr Clr Drug Dosing Cancelled Est GFR ( Amer) Cancelled Est GFR (Non-Af Amer) Cancelled BUN/Creatinine Ratio Cancelled Glucose Cancelled POC Glucose 119 H 139 H Estimat Average Glucose Hemoglobin A1c Calcium Cancelled Magnesium Cancelled Total Bilirubin Cancelled AST Cancelled ALT Cancelled Alkaline Phosphatase Cancelled Ammonia Total Protein Cancelled Albumin Cancelled Globulin Cancelled Albumin/Globulin Ratio Cancelled Procalcitonin Ref Lab Test Result 10/18/21 10/18/21 10/18/21 13:05 13:05 13:05 WBC RBC Hgb Hct MCV MCH MCHC RDW Std Deviation RDW Coeff of Frida Plt Count MPV Immature Gran % (Auto) Neut % (Auto) Lymph % (Auto) Childress % (Auto) Eos % (Auto) Baso % (Auto) Neut # (Auto) Lymph # (Auto) Childress # (Auto) Eos # (Auto) Baso # (Auto) Immature Gran # (Auto) Anisocytosis Target Cells PT 15.6 H INR 1.5 H APTT PTT Ratio Sodium Potassium Chloride Carbon Dioxide Anion Gap BUN Creatinine Est Cr Clr Drug Dosing Est GFR ( Amer) Est GFR (Non-Af Amer) BUN/Creatinine Ratio Glucose POC Glucose Estimat Average Glucose Hemoglobin A1c Calcium Magnesium Total Bilirubin AST ALT Alkaline Phosphatase Ammonia Cancelled Total Protein Albumin Globulin Albumin/Globulin Ratio Procalcitonin 1.76 H Ref Lab Test Result 10/18/21 10/18/21 10/18/21 16:09 16:09 17:30 WBC RBC Hgb Hct MCV MCH MCHC RDW Std Deviation RDW Coeff of Frida Plt Count MPV Immature Gran % (Auto) Neut % (Auto) Lymph % (Auto) Childress % (Auto) Eos % (Auto) Baso % (Auto) Neut # (Auto) Lymph # (Auto) Childress # (Auto) Eos # (Auto) Baso # (Auto) Immature Gran # (Auto) Anisocytosis Target Cells PT INR APTT PTT Ratio Sodium Potassium Chloride Carbon Dioxide Anion Gap BUN Creatinine Est Cr Clr Drug Dosing Est GFR ( Amer) Est GFR (Non-Af Amer) BUN/Creatinine Ratio Glucose POC Glucose 144 H Estimat Average Glucose Hemoglobin A1c Calcium Magnesium Total Bilirubin AST ALT Alkaline Phosphatase Ammonia Total Protein Albumin Globulin Albumin/Globulin Ratio Procalcitonin Ref Lab Test Result Pending Pending 10/18/21 20:07 WBC RBC Hgb Hct MCV MCH MCHC RDW Std Deviation RDW Coeff of Frida Plt Count MPV Immature Gran % (Auto) Neut % (Auto) Lymph % (Auto) Childress % (Auto) Eos % (Auto) Baso % (Auto) Neut # (Auto) Lymph # (Auto) Childress # (Auto) Eos # (Auto) Baso # (Auto) Immature Gran # (Auto) Anisocytosis Target Cells PT INR APTT PTT Ratio Sodium Potassium Chloride Carbon Dioxide Anion Gap BUN Creatinine Est Cr Clr Drug Dosing Est GFR ( Amer) Est GFR (Non-Af Amer) BUN/Creatinine Ratio Glucose POC Glucose 130 H Estimat Average Glucose Hemoglobin A1c Calcium Magnesium Total Bilirubin AST ALT Alkaline Phosphatase Ammonia Total Protein Albumin Globulin Albumin/Globulin Ratio Procalcitonin Ref Lab Test Result PG Care Time/CCT Total # of Minutes Spent Total Time Spent with Patient: Total time spent is greater than 50% in coordination of care (as documented) at patient's floor/unit and/or counseling patient: Coding Level of Care Code 29794 Subseq Hosp Care Lvl 3 Diagnoses Pneumonia due to COVID-19 virus U07.1; J12.82 FEI (acute liver failure) K72.00 Hepatic coma status: without hepatic coma Colon cancer metastasized to liver C18.9; C78.7 Portal vein thrombosis I81 Type 2 diabetes mellitus E11.9 HTN (hypertension) I10 Acute metabolic encephalopathy G93.41 (1) CHCF (acute liver failure) Hepatic coma status: without hepatic coma Qualified Code(s): K72.00 - Acute and subacute hepatic failure without coma
[2021-10-18 13:33] LABS: INR 1.5 (0.9-1.1); Prothrombin Time 15.6 Seconds (9.0-12.0)
--- NOTE | 2021-10-18 14:45 | Pharmacy Report ---
Pharmacy Glycemic Short Note 2 - Date of Service October 18, 2021 - Glycemic Short BSG Results (Last 24 hours): 10/17/21 10/17/21 10/18/21 22:01 22:14 08:24 Glucose 126 H POC Glucose 119 H POC Glucose (other) 134 H 10/18/21 12:28 Glucose POC Glucose 139 H POC Glucose (other) OUTPATIENT ANTIDIABETIC REGIMEN: * metformin 500 mg PO BID * HbA1C = 5.0% (10/18/21) ASSESSMENT: * Ms Ronquillo is a 76 y/o F with a PMH of T2DM who presents with COVID-19. She is ordered dexamethasone 6 mg IV daily. * BSGs today are 119-139 mg/dL. * Give NPH 30 units (0.4 units/kg) for dexamethasone-induced hyperglycemia. * Novolog weight-based stress of 2 for now. PLAN FOR INPATIENT GLYCEMIC CONTROL: * Hold outpatient oral diabetes medications * Basal insulin * NPH 30 units SQ daily * Bolus insulin * NovoLog per scale ACHS or Q6hrs while NPO * Goal Range: Low 110 mg/dL - High 140 mg/dL * Correction Factor: 30 mg/dL/unit * Nutritional / Prandial insulin per carb ratio of 1 unit per 10 grams CHO consumed
[2021-10-18] MEDS: DOXYCYCLINE HYCLATE 100 MG in DEXTROSE 5% 100 ML IV SCH (17:31)
[2021-10-18] MEDS: rifAXIMin 550 MG TABLET PO SCH ×2 (17:31→20:09)
[2021-10-18] MEDS: CEFEPIME 2,000 MG in SYRINGE 0 ML IV SCH (17:45)
--- NOTE | 2021-10-19 02:27 | Billing Data ---
Date of Service October 19, 2021 Coding Level of Care Code 23699 Initial Inpt Care Lvl 3
[2021-10-19] MEDS: DOXYCYCLINE HYCLATE 100 MG in DEXTROSE 5% 100 ML IV SCH ×2 (03:55→17:22)
--- NOTE | 2021-10-19 06:13 | Electrocardiogram Report ---
Test Reason : Blood Pressure : / mmHG Vent. Rate : 064 BPM Atrial Rate : 064 BPM P-R Int : 178 ms QRS Dur : 078 ms QT Int : 444 ms P-R-T Axes : 033 -38 018 degrees QTc Int : 458 ms Normal sinus rhythm Left axis deviation Inferior infarct (cited on or before 11-OCT-2021) Abnormal ECG When compared with ECG of 11-OCT-2021 00:01, No significant change was found Confirmed by Berny Powell ([id number]) on 10/19/2021 6:12:51 AM Referred By: REFERRED SELF Confirmed By:Berny Powell
[2021-10-19] MEDS: CEFEPIME 2,000 MG in SYRINGE 0 ML IV SCH ×2 (06:27→17:22)
[2021-10-19 06:46] LABS: Basophils # (auto) 0.04 K/uL (0-0.2); Basophils % (auto) 0.2 %; Eosinophils # (auto) 0.01 K/uL (0-0.5); Eosinophils % (auto) 0.1 %; Hematocrit (blood only) 39.2 % (37-47); Hemoglobin 13.4 g/dL (12.0-16.0); Immature Granulocytes # (auto) 0.54 K/uL (0.00-0.02); Immature Granulocytes % (auto) 2.9 %; Lymphocytes # (auto) 1.59 K/uL (1.2-3.4); Lymphocytes % (auto) 8.4 %; Mean Corpuscular Hemoglobin 32.1 pg (25-34); Mean Corpuscular Hgb Conc 34.2 g/dL (32-36); Mean Platelet Volume 9.8 fL (7.4-10.4); Monocytes # (auto) 1.82 K/uL (0.11-0.59); Monocytes % (auto) 9.6 %; Neutrophils # (auto) 14.89 K/uL (1.4-6.5); Neutrophils % (auto) 78.8 %; Platelet Count 264 K/uL (130-400); RDW Coefficient of Variation 23.1 % (11.5-14.5); RDW Standard Deviation 79.9 fL (36.4-46.3); Red Blood Count 4.17 M/uL (4.2-5.4); White Blood Count 18.89 K/uL (4.8-10.8)
[2021-10-19 08:07] LABS: Anisocytosis Present
[2021-10-19] MEDS: ENOXAPARIN 80 MG/0.8 ML SYR SQ SCH ×2 (08:13→20:19)
[2021-10-19] MEDS: METOPROLOL SUCC 50MG EXT REL TAB PO SCH (08:14)
[2021-10-19] MEDS: dexAMETHasone 6 MG in SYRINGE 0 ML IV SCH (08:15)
[2021-10-19] MEDS: rifAXIMin 550 MG TABLET PO SCH ×2 (08:15→20:20)
[2021-10-19] MEDS: PANTOprazole 40 MG TAB PO SCH ×2 (08:15→20:20)
[2021-10-19 08:18] LABS: Partial Thromboplastin Ratio 1.7
[2021-10-19] MEDS: INSULIN ASPART PER UNIT SC SCH ×4 (08:20→20:22)
[2021-10-19 08:34] LABS: Partial Thromboplastin Time 47.6 Seconds (21.0-31.0)
[2021-10-19] MEDS ORDERED: NovoLIN-N (NPH) PER UNIT CHARGE SQ ONE (09:00)
--- NOTE | 2021-10-19 13:02 | Pharmacy Report ---
Pharmacy Glycemic Short Note 2 - Date of Service October 19, 2021 - Glycemic Short BSG Results (Last 24 hours): 10/18/21 10/18/21 10/18/21 13:05 17:30 20:07 Glucose Cancelled POC Glucose 144 H 130 H 10/19/21 10/19/21 08:12 12:24 Glucose POC Glucose 91 101 H OUTPATIENT ANTIDIABETIC REGIMEN: * metformin 500 mg PO BID * HbA1C = 5.0% (10/18/21) ASSESSMENT: * Patient's BSGs yesterday were 227-590-259-130 mg/dL. She received 33 units of insulin (30 units of NPH + 3 units of bolus with dinner). * Today's BSGs are 91-101 mg/dL. * After discussion with nurse about patient's lethargy, hold NPH for today. * Continue Novolog weight-based stress of 2. Background * Ms Ronquillo is a 76 y/o F with a PMH of T2DM who presents with COVID-19. She is ordered dexamethasone 6 mg IV daily. * BSGs today are 119-139 mg/dL. * Give NPH 30 units (0.4 units/kg) for dexamethasone-induced hyperglycemia. * Novolog weight-based stress of 2 for now. PLAN FOR INPATIENT GLYCEMIC CONTROL: * Hold outpatient oral diabetes medications * Basal insulin * HOLD * Bolus insulin * NovoLog per scale ACHS or Q6hrs while NPO * Goal Range: Low 110 mg/dL - High 140 mg/dL * Correction Factor: 30 mg/dL/unit * Nutritional / Prandial insulin per carb ratio of 1 unit per 10 grams CHO consumed
--- NOTE | 2021-10-19 21:38 | Hospitalist Progress Note ---
Date of Service October 19, 2021 Assessment & Plan (1) Pneumonia due to COVID-19 virus: Plan: LLL. either 2nd COVID vs bacterial. remains on 2 L NC O2. cont dexamethasone 6mg IV Daily - day #2 today. cont cefepime + doxy for bacterial coverage -- need gram negative pathogen spectrum given recent hospitalization. O2, supportive care. (2) FEI (acute liver failure): Plan: recent hospital stay for profound hyperbilirubinemia. this led to appropriate w/u and imaging showing innumerable mets of the liver. s/p biopsy - suspected to have stage 4 colorectal ca. given her confusion, mild asterixis, etc I suspect some element of hepatic encephalopathy. remains on rifaximin 550mg BID. ammonia level is top-normal at 42 - will cont the rifaximin. INR noted to be 1.5 c/w hepatic synthetic dysfunction. (3) Colon cancer metastasized to liver: Plan: dx during recent admission. underwent port placement in prep for chemotherapy. very, very poor prognosis. CT head ordered given profound lethargy and to exclude brain mets (especially in light of systemic anticoagulation). (4) Portal vein thrombosis: Plan: STAT rad reading at time of admission suggested PVT. lovenox 1mg/kg BID. (5) Type 2 diabetes mellitus: Plan: Novolog SSI Hold metformin (6) HTN (hypertension): Plan: hold metoprolol (7) Acute metabolic encephalopathy: Plan: COVID infection, hyperbilirubinemia, other factors likely all playing a role Will obtain head CT to r/o mets (8) UTI (urinary tract infection): Plan: 10/12/21 urine cx with coag neg prashanth tenorio it does not appear it was ever treated the doxycycline for #1 should cover this Plan: updated pt's son by phone this evening again discussed her poor prognosis I explained to him that if she worsens or fails to improve we would simply make her comfort care he is agreeable to that I also discussed with him that his mother said she would want comfort care as well I believe that by the weekend we will know if she improves or continues to decline; I suspect the former DNR/DNI place smith for comfort Admission and Anticipated Discharge Date Admission Date: October 18, 2021 Subjective speaking with nursing - he continues to be very lethargic, sleeping most of the day no oral intake - just sips of water or boost occasionally wants to get up to use the commode but is very unsteady & weak during my rounds she was sleeping upon arrival woke up for me - but would come/go out of sleep she was able to tell me she was "very tired" she denied any pain in any location I was able to discuss with her that if she did not improve or got worse she would simply want to be comfortable Review of Systems Review of Systems: gen - admits to anorexia; admits to severe fatigue/lethargy neuro - denies headache cv - denies cp pulm - denies dyspnea GI - denies pain Physical Exam Physical Exam: gen - very sleepy, confused, appears quite ill mouth - MM dry skin - jaundice from head to toe heart - RRR, s1 s2, no murmur lungs - decreased BS bases, no increased work of breathing abd - distended, BS+, NT ext - edema present; pulses 2+ b/l Results & Data Results & Data ([facility]) Vital Signs (Past 12 Hours) Vital Signs Temp Pulse Resp BP Pulse Ox Pulse Ox Pulse Ox 10/19/21 14:25 36.6 C 61 16 131/72 95 10/19/21 13:52 94 94 Pulse Ox 10/19/21 14:25 10/19/21 13:52 92 Laboratory Results Laboratory Results - last 24 hr 10/18/21 10/18/21 10/19/21 16:09 16:09 06:13 WBC 18.89 H RBC 4.17 L Hgb 13.4 Hct 39.2 MCV 94.0 MCH 32.1 MCHC 34.2 RDW Std Deviation 79.9 H RDW Coeff of Frida 23.1 H Plt Count 264 MPV 9.8 Immature Gran % (Auto) 2.9 Neut % (Auto) 78.8 Lymph % (Auto) 8.4 [place] % (Auto) 9.6 Eos % (Auto) 0.1 Baso % (Auto) 0.2 Neut # (Auto) 14.89 H Lymph # (Auto) 1.59 [place] # (Auto) 1.82 H Eos # (Auto) 0.01 Baso # (Auto) 0.04 Immature Gran # (Auto) 0.54 H Anisocytosis Present APTT PTT Ratio Sodium Potassium Chloride Carbon Dioxide Anion Gap BUN Creatinine Est Cr Clr Drug Dosing Est GFR ( Amer) Est GFR (Non-Af Amer) BUN/Creatinine Ratio Glucose POC Glucose Calcium Total Bilirubin AST ALT Alkaline Phosphatase Total Protein Albumin Globulin Albumin/Globulin Ratio Ref Lab Test Result 10/19/21 10/19/21 10/19/21 06:13 06:13 06:13 WBC RBC Hgb Hct MCV MCH MCHC RDW Std Deviation RDW Coeff of Frida Plt Count MPV Immature Gran % (Auto) Neut % (Auto) Lymph % (Auto) [place] % (Auto) Eos % (Auto) Baso % (Auto) Neut # (Auto) Lymph # (Auto) [place] # (Auto) Eos # (Auto) Baso # (Auto) Immature Gran # (Auto) Anisocytosis APTT Cancelled PTT Ratio Cancelled Sodium Cancelled Potassium Cancelled Chloride Cancelled Carbon Dioxide Cancelled Anion Gap Cancelled BUN Cancelled Creatinine Cancelled Est Cr Clr Drug Dosing Cancelled Est GFR ( Amer) Cancelled Est GFR (Non-Af Amer) Cancelled BUN/Creatinine Ratio Cancelled Glucose Cancelled POC Glucose Calcium Cancelled Total Bilirubin Cancelled AST Cancelled ALT Cancelled Alkaline Phosphatase Cancelled Total Protein Cancelled Albumin Cancelled Globulin Cancelled Albumin/Globulin Ratio Cancelled Ref Lab Test Result 10/19/21 10/19/21 10/19/21 07:23 08:12 12:24 WBC RBC Hgb Hct MCV MCH MCHC RDW Std Deviation RDW Coeff of Frida Plt Count MPV Immature Gran % (Auto) Neut % (Auto) Lymph % (Auto) [place] % (Auto) Eos % (Auto) Baso % (Auto) Neut # (Auto) Lymph # (Auto) [place] # (Auto) Eos # (Auto) Baso # (Auto) Immature Gran # (Auto) Anisocytosis APTT 47.6 H* PTT Ratio 1.7 Sodium Potassium Chloride Carbon Dioxide Anion Gap BUN Creatinine Est Cr Clr Drug Dosing Est GFR ( Amer) Est GFR (Non-Af Amer) BUN/Creatinine Ratio Glucose POC Glucose 91 101 H Calcium Total Bilirubin AST ALT Alkaline Phosphatase Total Protein Albumin Globulin Albumin/Globulin Ratio Ref Lab Test Result 10/19/21 10/19/21 17:14 20:22 WBC RBC Hgb Hct MCV MCH MCHC RDW Std Deviation RDW Coeff of Frida Plt Count MPV Immature Gran % (Auto) Neut % (Auto) Lymph % (Auto) [place] % (Auto) Eos % (Auto) Baso % (Auto) Neut # (Auto) Lymph # (Auto) [place] # (Auto) Eos # (Auto) Baso # (Auto) Immature Gran # (Auto) Anisocytosis APTT PTT Ratio Sodium Potassium Chloride Carbon Dioxide Anion Gap BUN Creatinine Est Cr Clr Drug Dosing Est GFR ( Amer) Est GFR (Non-Af Amer) BUN/Creatinine Ratio Glucose POC Glucose 82 86 Calcium Total Bilirubin AST ALT Alkaline Phosphatase Total Protein Albumin Globulin Albumin/Globulin Ratio Ref Lab Test Result Diagnostic Findings labs from [place] from 10/18/21 -- ammonia 42 K 5.1 Cr 1.3 LFTs - all elevated including total bili 25, elevated ast/alt/zo phos (similar to prior levels) procal 1.7 PG Care Time/CCT Total # of Minutes Spent Total Time Spent with Patient: Total time spent is greater than 50% in coordination of care (as documented) at patient's floor/unit and/or counseling patient: Coding Level of Care Code 57032 Subseq Hosp Care Lvl 3 Diagnoses Pneumonia due to COVID-19 virus U07.1; J12.82 GROUP HOME (acute liver failure) K72.00 Hepatic coma status: without hepatic coma Colon cancer metastasized to liver C18.9; C78.7 Portal vein thrombosis I81 Type 2 diabetes mellitus E11.9 HTN (hypertension) I10 Acute metabolic encephalopathy G93.41 UTI (urinary tract infection) N39.0 (1) FEI (acute liver failure) Hepatic coma status: without hepatic coma Qualified Code(s): K72.00 - Acute and subacute hepatic failure without coma
[2021-10-20] MEDS: DOXYCYCLINE HYCLATE 100 MG in DEXTROSE 5% 100 ML IV SCH ×2 (04:43→17:32)
[2021-10-20] MEDS: CEFEPIME 2,000 MG in SYRINGE 0 ML IV SCH ×2 (06:05→17:33)
[2021-10-20] MEDS: ONDANSETRON INJ 2 MG/ML 2 ML VIAL IV PRN (06:12)
[2021-10-20 08:11] LABS: Basophils # (auto) 0.08 K/uL (0-0.2); Basophils % (auto) 0.4 %; Eosinophils # (auto) 0.05 K/uL (0-0.5); Eosinophils % (auto) 0.3 %; Hematocrit (blood only) 41.9 % (37-47); Hemoglobin 14.4 g/dL (12.0-16.0); Immature Granulocytes # (auto) 0.75 K/uL (0.00-0.02); Lymphocytes # (auto) 1.44 K/uL (1.2-3.4); Lymphocytes % (auto) 7.7 %; Mean Corpuscular Hemoglobin 32.3 pg (25-34); Mean Corpuscular Hgb Conc 34.4 g/dL (32-36); Mean Corpuscular Volume 93.9 fL (80-100); Mean Platelet Volume 9.3 fL (7.4-10.4); Monocytes # (auto) 1.81 K/uL (0.11-0.59); Monocytes % (auto) 9.7 %; Neutrophils # (auto) 14.53 K/uL (1.4-6.5); Neutrophils % (auto) 77.9 %; Platelet Count 211 K/uL (130-400); RDW Coefficient of Variation 23.2 % (11.5-14.5); RDW Standard Deviation 80.1 fL (36.4-46.3); Red Blood Count 4.46 M/uL (4.2-5.4); White Blood Count 18.66 K/uL (4.8-10.8)
[2021-10-20 08:31] LABS: Anisocytosis Present; Echinocytes 1+; Target Cells 2+
[2021-10-20] MEDS: dexAMETHasone 6 MG in SYRINGE 0 ML IV SCH (08:38)
[2021-10-20] MEDS: ENOXAPARIN 80 MG/0.8 ML SYR SQ SCH ×2 (08:39→19:55)
[2021-10-20] MEDS: rifAXIMin 550 MG TABLET PO SCH ×2 (08:39→20:00)
[2021-10-20] MEDS: PANTOprazole 40 MG TAB PO SCH ×3 (08:39→20:00)
[2021-10-20] MEDS: INSULIN ASPART PER UNIT SC SCH ×4 (08:49→21:38)
--- NOTE | 2021-10-20 09:16 | CT Scan Report ---
CT SCAN OF THE BRAIN WITHOUT IV CONTRAST CLINICAL HISTORY: Change in mental status. History of colon cancer. COMPARISON STUDY: No priors. TECHNIQUE: Unenhanced axial CT scan of the brain is performed from the vertex to the skull base. A do se lowering technique was utilized adhering to the principles of ALARA. CT DOSE: 788.63 mGycm FINDINGS: Brain parenchyma: There is age-related involutional change noting mild subcortical and periventricula r microangiopathic disease. There is no hemorrhage, mass effect, or evidence of acute territorial isc hemia by CT criteria. A small chronic lacunar infarct is seen in the left cerebellar hemisphere. Montoya -white matter differentiation is preserved. No extra-axial fluid collection is seen. Ventricles, sulci, cisterns: Prominent secondary to involutional change. Intracranial vasculature: There is atherosclerotic calcification of the cavernous carotid and vertebr al arteries. Calvarium: Unremarkable. Sinuses and mastoids: The visualized paranasal sinuses are clear. There is a small right mastoid effu elena. The left mastoid air cells are well pneumatized. Orbits: The bony orbits are grossly intact. IMPRESSION: There is no hemorrhage, mass effect, or evidence of acute territorial ischemia by CT sole santiago. ACT 112: Negative or not required by law. Electronically signed by: Matthew Anthony M.D. 10/20/2021 9:15 AM
--- NOTE | 2021-10-20 11:23 | Pharmacy Report ---
Pharmacy Glycemic Short Note 2 - Date of Service October 20, 2021 - Glycemic Short BSG Results (Last 24 hours): 10/19/21 10/19/21 10/19/21 06:13 12:24 17:14 Glucose Cancelled POC Glucose 101 H 82 10/19/21 10/20/21 10/20/21 20:22 07:48 08:30 Glucose Cancelled POC Glucose 86 81 OUTPATIENT ANTIDIABETIC REGIMEN: * metformin 500 mg PO BID * HbA1C = 5.0% (10/18/21) ASSESSMENT: * BSGs yesterday were 55-591-40-86 mg/dL. Patient received NO insulin. * BSG today is 81 mg/dL. * Continue to hold NPH due to poor status. Resume this weekend if BSGs begin to creep upwards. 10/19/21 * Patient's BSGs yesterday were 086-878-566-130 mg/dL. She received 33 units of insulin (30 units of NPH + 3 units of bolus with dinner). * Today's BSGs are 91-101 mg/dL. * After discussion with nurse about patient's lethargy, hold NPH for today. * Continue Novolog weight-based stress of 2. Background * Ms Ronquillo is a 76 y/o F with a PMH of T2DM who presents with COVID-19. She is ordered dexamethasone 6 mg IV daily. * BSGs today are 119-139 mg/dL. * Give NPH 30 units (0.4 units/kg) for dexamethasone-induced hyperglycemia. * Novolog weight-based stress of 2 for now. PLAN FOR INPATIENT GLYCEMIC CONTROL: * Hold outpatient oral diabetes medications * Basal insulin * HOLD * Bolus insulin * NovoLog per scale ACHS or Q6hrs while NPO * Goal Range: Low 110 mg/dL - High 140 mg/dL * Correction Factor: 30 mg/dL/unit * Nutritional / Prandial insulin per carb ratio of 1 unit per 10 grams CHO consumed
--- NOTE | 2021-10-20 20:38 | Hospitalist Progress Note ---
Date of Service October 20, 2021 Assessment & Plan (1) Pneumonia due to COVID-19 virus: Plan: LLL. either 2nd COVID vs bacterial. remains on 2 L NC O2. cont dexamethasone 6mg IV Daily - day #3 today. cont cefepime + doxy for bacterial coverage -- need gram negative pathogen spectrum given recent hospitalization. O2, supportive care. no major changes today. continues to have significant failure to thrive. (2) FEI (acute liver failure): Plan: recent hospital stay for profound hyperbilirubinemia. this led to appropriate w/u and imaging showing innumerable mets of the liver. s/p biopsy - suspected to have stage 4 colorectal ca. given her confusion, mild asterixis, etc I suspect some element of hepatic encephalopathy. remains on rifaximin 550mg BID. ammonia level was top-normal at 42 - will cont the rifaximin. INR noted to be 1.5 c/w hepatic synthetic dysfunction. very, very poor prognosis and very, very poor candidate for palliative chemo even if she gets through her COVID illness (3) Colon cancer metastasized to liver: Plan: dx during recent admission. underwent port placement in prep for chemotherapy. CT head without obvious brain mets or ICH (4) Portal vein thrombosis: Plan: STAT rad reading at time of admission suggested PVT. lovenox 1mg/kg BID. (5) Type 2 diabetes mellitus: Plan: Novolog SSI BSGs wnl Cont to hold metformin (6) HTN (hypertension): Plan: hold metoprolol (7) Acute metabolic encephalopathy: Plan: COVID infection, hyperbilirubinemia, other factors all contributing CT head without brain mets supportive care rifaximin to keep ammonia levels down (8) UTI (urinary tract infection): Plan: 10/12/21 urine cx with coag neg janneth, pans it does not appear it was ever treated the doxycycline for #1 should cover this Plan: updated pt's son by phone this evening once again I discussed with him that his mother is unchanged - hardly eating, lethargic/sleepy most of the day, and that she voiced that she likely would want to transition to comfort care he understands the poor prognosis and is accepting of the likely inevitable which would be her passing - either from COVID, or from the cancer itself I recommended that he have a zoom session with her tomorrow AM so that they can talk and refine further goals of care she was awake enough today to discuss these things I believe we are rapidly approaching a transition to full comfort care measures cont smith Admission and Anticipated Discharge Date Admission Date: October 18, 2021 Subjective pt very sleepy during the visit she had just had diarrhea bowel movement first one of the day she c/o stomach pain/cramps she kept saying over and over that she "couldn't do this" she then said "I know that the cancer is all throughout me" I asked her what she wanted to do - cont current care plan vs making her comfort care she did state "just make me comfortable" I told her I would discuss this with her son by phone Review of Systems Review of Systems: gen - sleepy, weak, fatigued cv - no pain pulm - no dyspnea GI - abd pain and diarrhea psych - depressed Physical Exam Physical Exam: gen - very sleepy, ill appearing, able to answer my questions today eyes - icteric mouth - icteric mucosa; MMM skin - jaundice from head to toe heart - RRR, s1 s2, no murmur lungs - decreased BS bases, no increased work of breathing abd - distended, BS+, mildly tender epigastric region ext - 1+ edema b/l; pulses 2+ b/l Results & Data Results & Data ([facility]) Vital Signs (Past 12 Hours) Vital Signs Temp Pulse Resp BP Pulse Ox 10/20/21 15:09 36.5 C 79 16 112/69 96 Laboratory Results Laboratory Results - last 24 hr 10/20/21 10/20/21 10/20/21 07:48 07:48 07:48 WBC 18.66 H RBC 4.46 Hgb 14.4 Hct 41.9 MCV 93.9 MCH 32.3 MCHC 34.4 RDW Std Deviation 80.1 H RDW Coeff of Frida 23.2 H Plt Count 211 MPV 9.3 Immature Gran % (Auto) 4.0 Neut % (Auto) 77.9 Lymph % (Auto) 7.7 [place] % (Auto) 9.7 Eos % (Auto) 0.3 Baso % (Auto) 0.4 Neut # (Auto) 14.53 H Lymph # (Auto) 1.44 [place] # (Auto) 1.81 H Eos # (Auto) 0.05 Baso # (Auto) 0.08 Immature Gran # (Auto) 0.75 H Anisocytosis Present Target Cells 2+ Echinocytes 1+ Sodium Cancelled Potassium Cancelled Chloride Cancelled Carbon Dioxide Cancelled Anion Gap Cancelled BUN Cancelled Creatinine Cancelled Est Cr Clr Drug Dosing Cancelled Est GFR ( Amer) Cancelled Est GFR (Non-Af Amer) Cancelled BUN/Creatinine Ratio Cancelled Glucose Cancelled POC Glucose Calcium Cancelled Total Bilirubin Cancelled AST Cancelled ALT Cancelled Alkaline Phosphatase Cancelled Total Protein Cancelled Albumin Cancelled Globulin Cancelled Albumin/Globulin Ratio Cancelled Ref Lab Test Result 10/20/21 10/20/21 10/20/21 08:30 12:21 17:31 WBC RBC Hgb Hct MCV MCH MCHC RDW Std Deviation RDW Coeff of Frida Plt Count MPV Immature Gran % (Auto) Neut % (Auto) Lymph % (Auto) [place] % (Auto) Eos % (Auto) Baso % (Auto) Neut # (Auto) Lymph # (Auto) [place] # (Auto) Eos # (Auto) Baso # (Auto) Immature Gran # (Auto) Anisocytosis Target Cells Echinocytes Sodium Potassium Chloride Carbon Dioxide Anion Gap BUN Creatinine Est Cr Clr Drug Dosing Est GFR ( Amer) Est GFR (Non-Af Amer) BUN/Creatinine Ratio Glucose POC Glucose 81 88 100 H Calcium Total Bilirubin AST ALT Alkaline Phosphatase Total Protein Albumin Globulin Albumin/Globulin Ratio Ref Lab Test Result Diagnostic Findings labs from [place] from this am - Cr 0.9 HCO3 <20 total bili 21 ast/alt modestly improved from prior PG Care Time/CCT Total # of Minutes Spent Total Time Spent with Patient: Total time spent is greater than 50% in coordination of care (as documented) at patient's floor/unit and/or counseling patient: Coding Level of Care Code 18175 Subseq Hosp Care Lvl 2 Diagnoses Pneumonia due to COVID-19 virus U07.1; J12.82 FEI (acute liver failure) K72.00 Hepatic coma status: without hepatic coma Colon cancer metastasized to liver C18.9; C78.7 Portal vein thrombosis I81 Type 2 diabetes mellitus E11.9 HTN (hypertension) I10 Acute metabolic encephalopathy G93.41 UTI (urinary tract infection) N39.0 (1) FEI (acute liver failure) Hepatic coma status: without hepatic coma Qualified Code(s): K72.00 - Acute and subacute hepatic failure without coma
[2021-10-21] MEDS: DOXYCYCLINE HYCLATE 100 MG in DEXTROSE 5% 100 ML IV SCH (05:29)
[2021-10-21] MEDS: CEFEPIME 2,000 MG in SYRINGE 0 ML IV SCH (05:29)
[2021-10-21 06:33] LABS: Basophils # (auto) 0.05 K/uL (0-0.2); Basophils % (auto) 0.2 %; Eosinophils # (auto) 0.01 K/uL (0-0.5); Hematocrit (blood only) 41.7 % (37-47); Hemoglobin 14.2 g/dL (12.0-16.0); Immature Granulocytes # (auto) 0.88 K/uL (0.00-0.02); Immature Granulocytes % (auto) 4.2 %; Lymphocytes # (auto) 1.71 K/uL (1.2-3.4); Lymphocytes % (auto) 8.2 %; Mean Corpuscular Hemoglobin 31.8 pg (25-34); Mean Corpuscular Hgb Conc 34.1 g/dL (32-36); Mean Corpuscular Volume 93.3 fL (80-100); Monocytes % (auto) 10.6 %; Neutrophils # (auto) 15.95 K/uL (1.4-6.5); Neutrophils % (auto) 76.8 %; Platelet Count 204 K/uL (130-400); RDW Coefficient of Variation 22.4 % (11.5-14.5); RDW Standard Deviation 77.3 fL (36.4-46.3); Red Blood Count 4.47 M/uL (4.2-5.4)
[2021-10-21 06:40] LABS: Alanine Aminotransferase 62 U/L (7-52); Albumin Globulin Ratio 0.9 (0.9-2); Albumin Level 2.5 gm/dl (3.4-5.0); Anion Gap 8 (3-11); Bilirubin,Total 24.1 mg/dl (0.2-1.0); Calcium 8.3 mg/dl (8.5-10.1); Carbon Dioxide 21 mmol/L (21-32); Chloride 103 mmol/L (98-107); Globulin 2.9 gm/dl (2.5-4.0); Glucose 102 mg/dl (70-99(Fasting)); Sodium 132 mmol/L (136-145); Total Protein 5.4 gm/dl (6.0-8.3)
[2021-10-21 06:55] LABS: Anisocytosis Present; Echinocytes 1+; Target Cells 2+
[2021-10-21] MEDS: dexAMETHasone 6 MG in SYRINGE 0 ML IV SCH (08:16)
[2021-10-21] MEDS: ENOXAPARIN 80 MG/0.8 ML SYR SQ SCH (08:16)
[2021-10-21] MEDS: PANTOprazole 40 MG TAB PO SCH (08:20)
[2021-10-21] MEDS: rifAXIMin 550 MG TABLET PO SCH (08:21)
[2021-10-21] MEDS: INSULIN ASPART PER UNIT SC SCH ×2 (08:21→12:56)
[2021-10-21] MEDS: MoRPHine SULFATE 2 MG/ML CARP IV PRN (08:33)
[2021-10-21 12:59] LABS: Potassium 3.7 mmol/L (3.5-5.1)
[2021-10-21 13:01] LABS: Aspartate Aminotransferase 155 U/L (13-39)
--- NOTE | 2021-10-21 13:16 | Hospitalist Progress Note ---
Date of Service October 21, 2021 Assessment & Plan (1) Palliative care encounter: Plan: We have been rapidly approaching comfort care status over the last 2 days. Patient has had severe failure to thrive and fatigue/lethargy due to COVID infection in the setting of liver failure & advanced stage 4 colorectal cancer. She has been consistent in stating she was ready to be comfortable. Family is very supportive of such. MULTIPLE phone conversations today with Demetrius, her son, discussing transition to comfort care pathway. Demetrius is 1 of 6 children - all are in support of such. Unfortunately Demetrius and 1 of his brothers have COVID; other siblings are negative. Spoke with house nursing supervisor dehydrogenation to confirm rules for visitation - 2 visitors at a time with full PPE given her COVID+ status. Unfortunately Demetrius and his brother with COVID cannot visit at this time. Will need to speak with infection control to see when it is permissible for them to visit. In meantime - zoom visits. Stop all therapies except IV morphine, zofran, ativan, robinul, etc. Stop BSGs, labs, vitals. Nursing aware of plan of care. (2) Need for comfort care: (3) Pneumonia due to COVID-19 virus: Plan: LLL. either 2nd COVID vs bacterial. transitioning to comfort care measures today. stop IV dex. stop IV abx. stop all supportive care except smith & NC O2. (4) JAIL (acute liver failure): Plan: recent hospital stay for profound hyperbilirubinemia. this led to appropriate w/u and imaging showing innumerable mets of the liver. s/p biopsy - suspected to have stage 4 colorectal ca. INR noted to be 1.5 c/w hepatic synthetic dysfunction. very, very poor prognosis transitioning to comfort care measures today (5) Colon cancer metastasized to liver: Plan: dx during recent admission. underwent port placement in prep for chemotherapy. CT head without obvious brain mets or ICH [id number] transitioning to comfort care measures today at patient's request SEVERE failure to thrive in setting of COVID illness (6) Portal vein thrombosis: Plan: stop lovenox, transition to comfort care pathway (7) Type 2 diabetes mellitus: Plan: stop all therapies transition to comfort care pathway (8) HTN (hypertension): Plan: stop therapies (9) Acute metabolic encephalopathy: Plan: COVID infection, hyperbilirubinemia, other factors all contributing CT head without brain mets (10) UTI (urinary tract infection): Plan: stop IV antibiotic therapy (11) Hyponatremia: Plan: complex care coordination today with multiple phone calls to family, nursing, etc transition to comfort care pathway corresponding with our lab regarding lab send-outs etc total time 65 minutes Admission and Anticipated Discharge Date Admission Date: October 18, 2021 Subjective pt very lethargic during my visit only woke up briefly once or twice she did confirm she had a zoom session with her son Demetrius this am she confirmed that she simply wants to be comfortable has been having abdominal pain today continues to be fatigued & exhausted with scant PO intake no dyspnea O2 sats 91% in RA during the visit; I placed the NC O2 back on - 3 L I spoke several times w/ her son Demetrius today Demetrius and his siblings support transitioning to comfort care measures Demetrius & 1 of his brothers tested + for COVID Demetrius has 4 additional siblings - they are all negative for COVID (6 children in total) Review of Systems Review of Systems: gen - fatigue, weakness, anorexia continue cv - no cp pulm - no dyspnea GI - abd pain present; no vomiting per staff; diarrhea present Physical Exam Physical Exam: gen - lethargic, ill appearing eyes - icteric mouth - icteric mucosa skin - jaundice from head to toe heart - RRR, s1 s2, no murmur lungs - decreased BS bases, no increased work of breathing, rales L base abd - distended, BS+, mildly tender epigastric region ext - 1+ edema b/l; pulses 2+ b/l Results & Data Results & Data ([facility]) Vital Signs (Past 12 Hours) Vital Signs Temp Pulse Resp BP Pulse Ox 10/21/21 10:52 36.5 C 81 16 115/68 97 10/21/21 05:33 86 20 94 Laboratory Results Laboratory Results - last 24 hr 10/20/21 10/20/21 10/21/21 17:31 20:53 05:12 WBC 20.80 H RBC 4.47 Hgb 14.2 Hct 41.7 MCV 93.3 MCH 31.8 MCHC 34.1 RDW Std Deviation 77.3 H RDW Coeff of Frida 22.4 H Plt Count 204 MPV 10.0 Immature Gran % (Auto) 4.2 Neut % (Auto) 76.8 Lymph % (Auto) 8.2 [place] % (Auto) 10.6 Eos % (Auto) 0.0 Baso % (Auto) 0.2 Neut # (Auto) 15.95 H Lymph # (Auto) 1.71 [place] # (Auto) 2.20 H Eos # (Auto) 0.01 Baso # (Auto) 0.05 Immature Gran # (Auto) 0.88 H Anisocytosis Present Target Cells 2+ Echinocytes 1+ Sodium Potassium Chloride Carbon Dioxide Anion Gap BUN Creatinine Est Cr Clr Drug Dosing Est GFR ( Amer) Est GFR (Non-Af Amer) BUN/Creatinine Ratio Glucose POC Glucose 100 H 130 H Calcium Total Bilirubin AST ALT Alkaline Phosphatase Total Protein Albumin Globulin Albumin/Globulin Ratio Procalcitonin 10/21/21 10/21/21 10/21/21 05:12 05:12 07:27 WBC RBC Hgb Hct MCV MCH MCHC RDW Std Deviation RDW Coeff of Frida Plt Count MPV Immature Gran % (Auto) Neut % (Auto) Lymph % (Auto) [place] % (Auto) Eos % (Auto) Baso % (Auto) Neut # (Auto) Lymph # (Auto) [place] # (Auto) Eos # (Auto) Baso # (Auto) Immature Gran # (Auto) Anisocytosis Target Cells Echinocytes Sodium 132 L Potassium 3.7 Chloride 103 Carbon Dioxide 21 Anion Gap 8 BUN TNP Creatinine TNP Est Cr Clr Drug Dosing TNP Est GFR ( Amer) TNP Est GFR (Non-Af Amer) TNP BUN/Creatinine Ratio TNP Glucose 102 H POC Glucose 102 H Calcium 8.3 L Total Bilirubin 24.1 H AST 155 H ALT 62 H Alkaline Phosphatase TNP Total Protein 5.4 L Albumin 2.5 L Globulin 2.9 Albumin/Globulin Ratio 0.9 Procalcitonin 0.78 H 10/21/21 12:33 WBC RBC Hgb Hct MCV MCH MCHC RDW Std Deviation RDW Coeff of Frida Plt Count MPV Immature Gran % (Auto) Neut % (Auto) Lymph % (Auto) [place] % (Auto) Eos % (Auto) Baso % (Auto) Neut # (Auto) Lymph # (Auto) [place] # (Auto) Eos # (Auto) Baso # (Auto) Immature Gran # (Auto) Anisocytosis Target Cells Echinocytes Sodium Potassium Chloride Carbon Dioxide Anion Gap BUN Creatinine Est Cr Clr Drug Dosing Est GFR ( Amer) Est GFR (Non-Af Amer) BUN/Creatinine Ratio Glucose POC Glucose 121 H Calcium Total Bilirubin AST ALT Alkaline Phosphatase Total Protein Albumin Globulin Albumin/Globulin Ratio Procalcitonin PG Care Time/CCT Total # of Minutes Spent Total Time Spent with Patient: Total time spent is greater than 50% in coordination of care (as documented) at patient's floor/unit and/or counseling patient: Prolonged Care Time Prolonged Care Time: Yes Total Prolonged Care Time: 65 Coding Level of Care Code 86731 Subseq Hosp Care Lvl 3 (25 - SIGNIFICANT, SEPARATELY IDENTIFIABLE ) Diagnoses Pneumonia due to COVID-19 virus U07.1; J12.82 FEI (acute liver failure) K72.00 Hepatic coma status: without hepatic coma Colon cancer metastasized to liver C18.9; C78.7 Portal vein thrombosis I81 Type 2 diabetes mellitus E11.9 HTN (hypertension) I10 Acute metabolic encephalopathy G93.41 UTI (urinary tract infection) N39.0 Need for comfort care Palliative care encounter Z51.5 Hyponatremia E87.1 Additional Codes Prolonged Care Time - Prolonged Care Time: Yes ([id number]) Time Spent (min) 65 (1) JAIL (acute liver failure) Hepatic coma status: without hepatic coma Qualified Code(s): K72.00 - Acute and subacute hepatic failure without coma
[2021-10-21] MEDS ORDERED: LORazepam 2 MG/1 ML VIAL IV PRN (16:44)
[2021-10-21] MEDS ORDERED: HYOSCYAMINE SULFATE 0.125 MG TAB SL PRN (16:44)
[2021-10-21] MEDS ORDERED: GLYCOPYRROLATE 0.2 MG/ML VIAL IV PRN (16:44)
[2021-10-21] MEDS ORDERED: LORazepam 0.5 MG TAB PO PRN (16:44)
[2021-10-21] MEDS: FAMOTIDINE 20 MG in SYRINGE 3 ML IV SCH (21:57)
[2021-10-22] MEDS: MoRPHine SULFATE 2 MG/ML CARP IV PRN ×2 (05:36→10:17)
[2021-10-22] MEDS: FAMOTIDINE 20 MG in SYRINGE 3 ML IV SCH ×2 (08:41→21:48)
[2021-10-22] MEDS: ONDANSETRON INJ 2 MG/ML 2 ML VIAL IV PRN (10:17)
--- NOTE | 2021-10-22 19:06 | Hospitalist Progress Note ---
Date of Service October 22, 2021 Assessment & Plan (1) Palliative care encounter: Plan: Cont comfort care pathway including morphine IV prn, zofran prn, ativan prn, NC O2, smith, etc. Called and left message for pt's son Demetrius. Asked staff to attempt to contact [facility] to have a j2ee consultant come and give a blessing (requested by sonDemetrius). Anticipate pt's passing in the next 3-4 days.. (2) Need for comfort care: (3) Pneumonia due to COVID-19 virus: Plan: LLL. either 2nd COVID vs bacterial vs both. (4) FEI (acute liver failure): Plan: recent hospital stay for profound hyperbilirubinemia. this led to appropriate w/u and imaging showing innumerable mets of the liver. s/p biopsy - suspected to have stage 4 colorectal ca. (5) Colon cancer metastasized to liver: Plan: diagnosed during recent admission. (6) Portal vein thrombosis: Plan: stopped lovenox, transitioned to comfort care pathway (7) Type 2 diabetes mellitus: Plan: stopped all therapies transitioned to comfort care pathway (8) HTN (hypertension): Plan: stopped all therapies (9) Acute metabolic encephalopathy: Plan: COVID infection, hyperbilirubinemia, other factors all contributing worse today (10) UTI (urinary tract infection): Plan: stopped IV antibiotic therapy (11) Hyponatremia: Plan: no Rx -- comfort care in place Plan: left message for Demetrius elmore, on his voicemail 10/22/21 Admission and Anticipated Discharge Date Admission Date: October 18, 2021 Subjective patient VERY lethargic during the visit only opened eyes briefly (2-3 seconds) - did not answer questions - went back to sleep staff report that multiple family members came for bedside visits today Review of Systems Review of Systems: Unobtainable due to reduced consciousness Physical Exam Physical Exam: gen - lethargic (nearly obtunded), ill appearing eyes - icteric mouth - icteric mucosa and dry skin - jaundice from head to toe heart - RRR, s1 s2, no murmur lungs - decreased BS bases, no increased work of breathing abd - distended, BS+, mildly tender once again ext - 1+ edema b/l; pulses 1-2+ b/l Results & Data Results & Data ([facility]) Vital Signs (Past 12 Hours) Vital Signs Temp Pulse Resp BP Pulse Ox 10/22/21 13:51 93 10/22/21 13:40 91 10/22/21 11:23 95 10/22/21 08:22 36.7 C 91 H 16 123/76 96 PG Care Time/CCT Total # of Minutes Spent Total Time Spent with Patient: Total time spent is greater than 50% in coordination of care (as documented) at patient's floor/unit and/or counseling patient: Coding Level of Care Code 77507 Subseq Hosp Care Lvl 1 Diagnoses Palliative care encounter Z51.5 Need for comfort care Pneumonia due to COVID-19 virus U07.1; J12.82 SNF (acute liver failure) K72.00 Hepatic coma status: without hepatic coma Colon cancer metastasized to liver C18.9; C78.7 Portal vein thrombosis I81 Type 2 diabetes mellitus E11.9 HTN (hypertension) I10 Acute metabolic encephalopathy G93.41 UTI (urinary tract infection) N39.0 Hyponatremia E87.1 (1) FEI (acute liver failure) Hepatic coma status: without hepatic coma Qualified Code(s): K72.00 - Acute and subacute hepatic failure without coma
[2021-10-23] MEDS: ONDANSETRON INJ 2 MG/ML 2 ML VIAL IV PRN (09:08)
[2021-10-23] MEDS: FAMOTIDINE 20 MG in SYRINGE 3 ML IV SCH ×2 (09:08→20:04)
[2021-10-23] MEDS: MoRPHine SULFATE 2 MG/ML CARP IV PRN (18:32)
--- NOTE | 2021-10-23 21:08 | Hospitalist Progress Note ---
Date of Service October 23, 2021 Assessment & Plan (1) Palliative care encounter: Plan: Cont comfort care pathway including morphine IV prn, zofran prn, ativan prn, NC O2, smith, etc. Called and spoke with pt's son Demetrius this evening; update given. He reports he is 5+ days out from his COVID + test and does not have symptoms. He was given clearance to return to work by his employer. He is hopeful he can come and visit his . He understands we have to get clearance from our infection control room helper. Anticipate pt's passing in the next 3-4 days.. (2) Need for comfort care: (3) Pneumonia due to COVID-19 virus: Plan: Present on admission. LLL -- either 2nd COVID vs bacterial vs both. (4) CARE HOME (acute liver failure): Plan: recent hospital stay for profound hyperbilirubinemia. this led to appropriate w/u and imaging showing innumerable mets of the liver. s/p biopsy - suspected to have stage 4 colorectal ca. (5) Colon cancer metastasized to liver: Plan: diagnosed during recent admission. (6) Portal vein thrombosis: Plan: stopped lovenox, transitioned to comfort care pathway (7) Type 2 diabetes mellitus: Plan: stopped all therapies transitioned to comfort care pathway (8) HTN (hypertension): Plan: stopped all therapies (9) Acute metabolic encephalopathy: Plan: COVID infection, hyperbilirubinemia, other factors all contributing worse today (10) UTI (urinary tract infection): Plan: stopped IV antibiotic therapy (11) Hyponatremia: Plan: no Rx -- comfort care in place Plan: updated pt's son Demetrius this evening by phone Admission and Anticipated Discharge Date Admission Date: October 18, 2021 Subjective restless during the visit shifting in bed 2 of her grandchildren came into room during my visit c/o abd pain Review of Systems Review of Systems: cv - no chest pain pulm - no dyspnea GI - nausea / pain Physical Exam Physical Exam: gen - awake but restless, shifting in bed eyes - icteric mouth - icteric mucosa and dry skin - jaundice from head to toe heart - RRR, s1 s2, no murmur lungs - decreased BS bases, no increased work of breathing abd - distended, BS+, mildly tender to palpation ext - 1-2+ edema b/l; pulses 1-2+ b/l psych - confused PG Care Time/CCT Total # of Minutes Spent Total Time Spent with Patient: Total time spent is greater than 50% in coordination of care (as documented) at patient's floor/unit and/or counseling patient: Coding Level of Care Code 47621 Subseq Hosp Care Lvl 1 Diagnoses Palliative care encounter Z51.5 Need for comfort care Pneumonia due to COVID-19 virus U07.1; J12.82 FEI (acute liver failure) K72.00 Hepatic coma status: without hepatic coma Colon cancer metastasized to liver C18.9; C78.7 Portal vein thrombosis I81 Type 2 diabetes mellitus E11.9 HTN (hypertension) I10 Acute metabolic encephalopathy G93.41 UTI (urinary tract infection) N39.0 Hyponatremia E87.1 (1) CARE HOME (acute liver failure) Hepatic coma status: without hepatic coma Qualified Code(s): K72.00 - Acute and subacute hepatic failure without coma
[2021-10-24] MEDS: FAMOTIDINE 20 MG in SYRINGE 3 ML IV SCH ×2 (09:26→20:10)
--- NOTE | 2021-10-24 17:44 | Hospitalist Progress Note ---
Date of Service October 24, 2021 Assessment & Plan (1) Palliative care encounter: Plan: Cont comfort care pathway including morphine IV prn, zofran prn, ativan prn, NC O2, smith, etc. continue CUT OFF SAW SET UP OPERATOR (2) Need for comfort care: (3) Pneumonia due to COVID-19 virus: Plan: Present on admission. LLL -- either 2nd COVID vs bacterial vs both. no treatment, now on CUT OFF SAW SET UP OPERATOR (4) SHELTER (acute liver failure): Plan: recent hospital stay for profound hyperbilirubinemia. this led to appropriate w/u and imaging showing innumerable mets of the liver. s/p biopsy - suspected to have stage 4 colorectal ca. (5) Colon cancer metastasized to liver: Plan: diagnosed during recent admission. no treatment due to now being on CUT OFF SAW SET UP OPERATOR (6) Portal vein thrombosis: Plan: noted on STAT Rad read on admission CT stopped lovenox, transitioned to comfort care pathway (7) Type 2 diabetes mellitus: Plan: stopped all therapies transitioned to comfort care pathway (8) HTN (hypertension): Plan: stopped all therapies (9) Acute metabolic encephalopathy: Plan: COVID infection, hyperbilirubinemia, other factors all contributing not speaking (10) UTI (urinary tract infection): Plan: stopped IV antibiotic therapy (11) Hyponatremia: Plan: no Rx -- comfort care in place Plan: updated pt's DIL and nephew in hospital today Admission and Anticipated Discharge Date Admission Date: October 18, 2021 Subjective Pt sleeping and did moan once in response to my question. Has not received any comfort meds today. Discussed her care with her DIL and nephew outside her room after their visit today. Review of Systems Review of Systems: Unobtainable due to cognitive status and Unobtainable due to reduced consciousness Physical Exam Constitutional: well developed Respiratory: normal respiratory effort, lungs clear to auscultation Cardiovascular: RRR, no murmur, no edema Musculoskeletal: Extremities: extremities normal to inspection; no cyanosis and no clubbing Skin: no rashes, warm and dry Neurologic: + not awake Genitourinary: + abnormal external appearance (Smith catheter draining dark brown urine) Lymphatic: no lymphedema PG Care Time/CCT Total # of Minutes Spent Total Time Spent with Patient: Total time spent is greater than 50% in coordination of care (as documented) at patient's floor/unit and/or counseling patient: Coding Level of Care Code 44589 Subseq Hosp Care Lvl 1 Diagnoses Palliative care encounter Z51.5 Need for comfort care Pneumonia due to COVID-19 virus U07.1; J12.82 SHELTER (acute liver failure) K72.00 Hepatic coma status: without hepatic coma Colon cancer metastasized to liver C18.9; C78.7 Portal vein thrombosis I81 Type 2 diabetes mellitus E11.9 HTN (hypertension) I10 Acute metabolic encephalopathy G93.41 UTI (urinary tract infection) N39.0 Hyponatremia E87.1 (1) FEI (acute liver failure) Hepatic coma status: without hepatic coma Qualified Code(s): K72.00 - Acute and subacute hepatic failure without coma
[2021-10-24] MEDS ORDERED: LORazepam 0.5 MG in SYRINGE 0.75 ML IV PRN (20:41)
[2021-10-24] MEDS ORDERED: LORazepam 0.5 MG in SYRINGE 0.25 ML IV PRN (23:17)
[2021-10-25] MEDS: FAMOTIDINE 20 MG in SYRINGE 3 ML IV SCH (09:38)
--- NOTE | 2021-10-25 12:37 | Hospitalist Progress Note ---
Date of Service October 25, 2021 Assessment & Plan (1) Palliative care encounter: Plan: With metastatic colon CA causing liver failure, now with COVID-19 as well, encephalopathy, hypoxia. Now transitioned to SCHEDULE CLERK but is intermittently awake and responds to questions at times, drinks Boost shake occasionally. Doubtful she will pass away in the next 7 days Cont comfort care pathway including morphine IV prn, zofran prn, ativan prn, NC O2, smith, etc. continue SCHEDULE CLERK Will d/w family about bringing her home w/ Hospice vs a NH with Hospice (2) Need for comfort care: (3) Pneumonia due to COVID-19 virus: Plan: Present on admission. LLL -- either 2nd COVID vs bacterial vs both. no treatment, now on SCHEDULE CLERK requiring 4LNC (4) FEI (acute liver failure): Plan: recent hospital stay for profound hyperbilirubinemia. this led to appropriate w/u and imaging showing innumerable mets of the liver. s/p biopsy - suspected to have stage 4 colorectal ca. (5) Colon cancer metastasized to liver: Plan: diagnosed during recent admission. no treatment due to now being on SCHEDULE CLERK (6) Portal vein thrombosis: Plan: noted on STAT Rad read on admission CT stopped lovenox, transitioned to comfort care pathway (7) Type 2 diabetes mellitus: Plan: stopped all therapies transitioned to comfort care pathway (8) HTN (hypertension): Plan: stopped all therapies (9) Acute metabolic encephalopathy: Plan: COVID infection, hyperbilirubinemia/liver failure, hypoxia, other factors all contributing not speaking much but occasionally drainks fluids (10) UTI (urinary tract infection): Plan: stopped IV antibiotic therapy (11) Hyponatremia: Plan: no Rx -- comfort care in place Plan: will call son with update today Admission and Anticipated Discharge Date Admission Date: October 18, 2021 Subjective Pt would not open her eyes but did moan a few times in response to questions and was a little restless in the bed. Still making urine and RN reported she drank a whole can of Boost this AM. Review of Systems Review of Systems: Unobtainable due to reduced consciousness Physical Exam Constitutional: well developed Respiratory: normal respiratory effort, lungs clear to auscultation Cardiovascular: RRR, no murmur, no edema Musculoskeletal: Extremities: extremities normal to inspection; no cyanosis and no clubbing Skin: no rashes, warm and dry + jaundice Neurologic: + not awake Genitourinary: + abnormal external appearance (Smith catheter draining dark brown urine) Lymphatic: no lymphedema Results & Data Results & Data ([facility]) Vital Signs (Past 12 Hours) Vital Signs Pulse Resp BP Pulse Ox 10/25/21 07:18 95 H 16 116/57 L 92 PG Care Time/CCT Total # of Minutes Spent Total Time Spent with Patient: Total time spent is greater than 50% in coordination of care (as documented) at patient's floor/unit and/or counseling patient: Coding Level of Care Code 55638 Subseq Hosp Care Lvl 1 Diagnoses Palliative care encounter Z51.5 Need for comfort care Pneumonia due to COVID-19 virus U07.1; J12.82 INTERMEDIATE (acute liver failure) K72.00 Hepatic coma status: without hepatic coma Colon cancer metastasized to liver C18.9; C78.7 Portal vein thrombosis I81 Type 2 diabetes mellitus E11.9 HTN (hypertension) I10 Acute metabolic encephalopathy G93.41 UTI (urinary tract infection) N39.0 Hyponatremia E87.1 (1) FEI (acute liver failure) Hepatic coma status: without hepatic coma Qualified Code(s): K72.00 - Acute and subacute hepatic failure without coma
--- NOTE | 2021-10-26 14:29 | Hospitalist Progress Note ---
Date of Service October 26, 2021 Assessment & Plan (1) Palliative care encounter: Plan: With metastatic colon CA causing liver failure, now with COVID-19 as well, encephalopathy, hypoxia. Now transitioned to BAR PILOT but is intermittently awake and responds to questions at times, drinks Boost shake occasionally. Doubtful she will pass away in the next 7 days Cont comfort care pathway including morphine IV prn, zofran prn, ativan prn, NC O2, smith, etc. although sh ehas not needed any comfort medications in 3 days Will encourage ativan use if restlessness worsens continue BAR PILOT Family has now decided to bring her home w/ Hospice -arrangements being made through (2) Need for comfort care: (3) Pneumonia due to COVID-19 virus: Plan: Present on admission. LLL -- either 2nd COVID vs bacterial vs both. no treatment, now on BAR PILOT requiring 4LNC for comfort (4) ASSISTED (acute liver failure): Plan: recent hospital stay for profound hyperbilirubinemia. this led to appropriate w/u and imaging showing innumerable mets of the liver. s/p biopsy - suspected to have stage 4 colorectal ca. (5) Colon cancer metastasized to liver: Plan: diagnosed during recent admission. no treatment due to now being on BAR PILOT (6) Portal vein thrombosis: Plan: noted on STAT Rad read on admission CT stopped lovenox, transitioned to comfort care pathway (7) Type 2 diabetes mellitus: Plan: stopped all therapies transitioned to comfort care pathway (8) HTN (hypertension): Plan: stopped all therapies (9) Acute metabolic encephalopathy: Plan: COVID infection, hyperbilirubinemia/liver failure, hypoxia, other factors all contributing not speaking much but occasionally drainks fluids (10) UTI (urinary tract infection): Plan: stopped IV antibiotic therapy (11) Hyponatremia: Plan: no Rx -- comfort care in place Admission and Anticipated Discharge Date Admission Date: October 18, 2021 Subjective RN reports pt was awake earlier and was able to tell him she was in the hospital and that the month was October. But when I saw her, she was sleeping but a little restless, had incontinence to stool, and would not wake up to loud verbal stimulus. Discussed care with Sand [employer] Gra[employer] Plant Operator who d/w son-plan is to get house ready to bring her home on hospice soon Review of Systems Review of Systems: Unobtainable due to cognitive status and Unobtainable due to reduced consciousness Physical Exam Constitutional: well developed Respiratory: normal respiratory effort, lungs clear to auscultation Cardiovascular: RRR, no murmur, no edema Musculoskeletal: Extremities: extremities normal to inspection; no cyanosis and no clubbing Skin: no rashes, warm and dry + jaundice Neurologic: + not awake Genitourinary: + abnormal external appearance (Smith catheter draining dark brown urine) Lymphatic: no lymphedema Results & Data Results & Data ([facility]) Vital Signs (Past 12 Hours) Vital Signs Temp Pulse Resp BP Pulse Ox 10/26/21 07:11 36.4 C L 95 H 18 113/72 96 PG Care Time/CCT Total # of Minutes Spent Total Time Spent with Patient: Total time spent is greater than 50% in coordination of care (as documented) at patient's floor/unit and/or counseling patient: Coding Level of Care Code 89034 Subseq Hosp Care Lvl 1 Diagnoses Palliative care encounter Z51.5 Need for comfort care Pneumonia due to COVID-19 virus U07.1; J12.82 FEI (acute liver failure) K72.00 Hepatic coma status: without hepatic coma Colon cancer metastasized to liver C18.9; C78.7 Portal vein thrombosis I81 Type 2 diabetes mellitus E11.9 HTN (hypertension) I10 Acute metabolic encephalopathy G93.41 UTI (urinary tract infection) N39.0 Hyponatremia E87.1 (1) FEI (acute liver failure) Hepatic coma status: without hepatic coma Qualified Code(s): K72.00 - Acute and subacute hepatic failure without coma
[2021-10-27] MEDS: MoRPHine SULFATE 2 MG/ML CARP IV PRN (05:57)
--- NOTE | 2021-10-27 13:37 | Discharge Summary ---
Date of Service October 27, 2021 Admission HPI Per Admitting Provider Wen Ronquillo is a 76-year-old female with past medical history of liver cancer with metastasis, DM 2, hypertension, breast cancer who arrived for concerns of weakness and deconditioning at home. Over the past several days she has not been able to tolerate oral nutrition, she has felt significantly weak. She does state that over the past day or so she has felt that it has been difficult for her to breathe said that her lungs feel like they are not working. However, has had no cough, congestion. She has had some mild vague abdominal discomfort. However, has not had nausea, vomiting. Has continued to have normal bowel movements without melena or fadumo blood. No urinary complaints including hematuria, dysuria, frequency, urgency. Patient had a port placed earlier this week, as she is pending the initiation of chemotherapy with FOLFOX with Dr. Gregg of [facility]. The ED, patient had CT A/P showing innumerable low-density masses throughout the liver consistent with metastases. Gastrohepatic and peripancreatic adenopathy. Small amount of nonocclusive thrombus seen within the main portal vein. Moderately large amount of ascites. No evidence of bowel obstruction. Possible thickened constricting mass in the distal sigmoid colon. No hydronephrosis. Chest x-ray was unremarkable. Lab work showed leukocytosis of 23.16 with left shift, INR of 1.5, total bilirubin elevated to 25.5. AST alk phos ammonia levels unable to perform due to myelosis and icterus, though lab work from yesterday did show significant elevations in AST ALT and alk phos. Patient did test positive for COVID-19. Principal Diagnosis Metastatic colon CA, liver failure, COVID-19, encephalopathy Discharge Exam Constitutional well developed Respiratory normal respiratory effort, lungs clear to auscultation Cardiovascular RRR, no murmur, no edema Musculoskeletal Extremities: extremities normal to inspection; no cyanosis and no clubbing Skin no rashes, warm and dry + jaundice Neurologic + not awake Genitourinary + abnormal external appearance (Krueger catheter draining dark brown urine) Lymphatic no lymphedema Discharge Data Allergies Allergy/AdvReac Type Severity Reaction Status Date / Time cinnamon AdvReac Severe Heartburn Verified 10/17/21 23:34 Consultations 10/18/21 00:54 ED Decision to Admit Stat Ordered Studies 10/17/21 22:26 CT abd pelvis IV con only Urgent 10/19/21 19:49 CT head/brain wo con Routine Hospital Course (1) Palliative care encounter: With metastatic colon CA causing liver failure, now with COVID-19 as well, encephalopathy, hypoxia. Now transitioned to INTERNAL REVENUE SERVICE AGENT but is intermittently awake and responds to questions at times, drinks Boost shake occasionally. Doubtful she will pass away in the next 7 days Only received a few doses of morphine and ativan here, remained comfortable continue INTERNAL REVENUE SERVICE AGENT Family has now decided to bring her home w/ Hospice -arrangements being made through to go home today Rxd Roxanol 5mg po q6h prn pain or breathlessness. lorazepam 0.5mg po SL q4h prn agitation (2) Need for comfort care: (3) Pneumonia due to COVID-19 virus: Present on admission. LLL -- either 2nd COVID vs bacterial vs both. no treatment, now on INTERNAL REVENUE SERVICE AGENT requiring 4LNC for comfort (4) FEI (acute liver failure): recent hospital stay for profound hyperbilirubinemia. this led to appropriate w/u and imaging showing innumerable mets of the liver. s/p biopsy - suspected to have stage 4 colorectal ca. (5) Colon cancer metastasized to liver: diagnosed during recent admission. no treatment due to now being on INTERNAL REVENUE SERVICE AGENT (6) Portal vein thrombosis: noted on STAT Rad read on admission CT stopped lovenox, transitioned to comfort care pathway (7) Type 2 diabetes mellitus: stopped all therapies transitioned to comfort care pathway (8) HTN (hypertension): stopped all therapies (9) Acute metabolic encephalopathy: COVID infection, hyperbilirubinemia/liver failure, hypoxia, other factors all contributing not speaking much but occasionally drainks fluids (10) UTI (urinary tract infection): stopped IV antibiotic therapy (11) Hyponatremia: no Rx -- comfort care in place dc to home today w/ Home Hospice Total Time Total Time Spent Total Time Spent (In Minutes): 35 min Discharge Plan Discharge Items Patient Disposition: Hospice - Home Reason For Visit: WEAKNESS, FATIGUE, DECONDITIONING Discharge Diagnosis: Metastatic colon cancer, liver failure, COVID-19, encephalopathy Condition on Discharge: Fair Activity: As commented below Lifting: None Bathing: No limitations Exercise/Sports: Rest today Non-emergency contact: Primary Care Provider Call non-emergency contact if: you have any medication questions and your symptoms worsen Follow-up/Referrals: Moreno Ac, [Primary Care Provider] - (You do not need to follow up with Dr. Ac as you are going home on hospice) Diet: Regular Diet Comment: diet as tolerated for comfort Addtl Attending Provider Instructions: You can take morphine as needed for pain or breathlessness, and lorazepam under the tongue as needed for anxiety or agitation. You do not need to take any other medications that you were on previously. The hospice agency will help guide you and your family after you return home with regard to your care. Pending Studies at Discharge: No Stand-Alone Forms: My [facility] Medications and DC Order Prescriptions: New lorazepam 0.5 mg Tablet 0.5 mg sublingual Q4H PRN (Reason: agitation) Qty: 7 RF: 0 morphine concentrate 100 mg/5 mL (20 mg/mL) solution 5 mg PO Q6H PRN (Reason: breathlessness or pain) Qty: 15 RF: 0 Discontinued metformin 500 mg tablet 500 mg PO BID Qty: 180 RF: 3 tramadol [Ultram] 50 mg tablet 50 mg PO Q6H PRN (Reason: pain) Qty: 10 RF: 0 lactulose 20 gram/30 mL Solution 20 g PO BID PRN (Reason: constipation) Qty: 1200 RF: 0 pantoprazole [Protonix] 40 mg tablet,delayed release (DR/EC) 40 mg PO BID 14 Days Qty: 28 RF: 0 metoprolol succinate 50 mg tablet extended release 24 hr 50 mg PO QAM Qty: 30 RF: 0 Discharge Orders: Discharge Order (Routine); Ordered 10/27/21 Ordered By: Claudia Clark Admission Data Admit Date/Time: 10/18/21 12:43 Attending Provider: Claudia Clark Admit Provider: Lokesh Poole Primary Care Provider: Moreno Ac Other Providers: Petar Turner ; Javon,Hospice Coding Level of Care Code D/C DAY MANAGEMENT >30 MINS Diagnoses Palliative care encounter Z51.5 Need for comfort care Pneumonia due to COVID-19 virus U07.1; J12.82 CORRECTION (acute liver failure) K72.00 Hepatic coma status: without hepatic coma Colon cancer metastasized to liver C18.9; C78.7 Portal vein thrombosis I81 Type 2 diabetes mellitus E11.9 HTN (hypertension) I10 Acute metabolic encephalopathy G93.41 UTI (urinary tract infection) N39.0 Hyponatremia E87.1
== END 2021-10-27 16:26 | disposition hospice, home (50) | DRG 177 ==
LOC: ED 21:39 → 3E 21:39 → SUATTDRO 10-18 02:03 → 3E 10-18 03:36 → SUATTDRO 10-18 12:43